=== PATIENT | male | born 1960 | race Caucasian/White ===

== ENCOUNTER 2019-08-25 16:19 | Emergency (ER) | payer MEDICARE, MEDICAID, SELFPAY ==
[2019-08-25 16:05] VITALS: BP 142/95; PULSE 77; RESP 18; TEMP 36.8; O2SAT 93; BMI 35.2
--- NOTE | 2019-08-25 16:05 | ED_ITS ---
Entered by Eusebia Ray, acting as scribe for Zheng Tee DO HPI - Fall General: Chief Complaint: Fall Stated Complaint: fall/loc Time Seen by Provider: 08/25/19 16:05 Source: patient and EMS Mode of arrival: EMS Limitations: no limitations History of Present Illness: HPI Narrative: 59 yo male presents with head laceration post fall. per EMS the pt had 3-4 minutes of LOC. 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 pt complained of neck pain to EMS but not on exam. pt has a head laceration and a knot on back of his head. pt denies any other symptoms at this time. 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) Loss of consciousness: Yes (3-4 minutes ) Length of LOC: minutes(s) Prolonged down time: yes Symptoms prior to fall: none Context: tripped/slipped Location of injury: head and face Severity: moderate Associated symptoms-after fall: Reports no associated symptoms; Denies abdominal pain, chest pain, hematuria or neck pain Review of Systems Const: Denies: fever, chills, body aches, fatigue, malaise or night sweats Eyes: Denies: change in vision or blurry vision ENMT: Denies: throat pain, oral sores/lesions, dental pain, nasal discharge or nasal congestion Card: Denies: chest pain, palpitations, irregular heart rhythm, edema, syncope, shortness of breath on exertion, shortness of breath when lying down or leg pain with exertion Resp: Denies: shortness of breath, productive cough, non-productive cough or wheezing GI: Denies: abdominal pain, nausea, vomiting, vomiting blood, coffee grounds in vomit, difficulty swallowing, heartburn/indigestion, diarrhea, constipation, cramping, blood in stool or black tarry stool : Denies: flank pain, difficulty urinating, painful urination, urinary frequency, urinary urgency, urinary incontinence or blood in urine Musc: Denies: neck pain, back pain, extremity pain, extremity swelling, joint pain or joint swelling Psych: Denies: anxiety, depression, loss of interest, visual hallucinations, auditory hallucinations, suicidal ideation or homicidal ideation Endo: Denies: excessive urination, excessive thirst, tired all the time or cold intolerance Fortunato/Lymph: Denies: easy bruising, easy bleeding, petechiae, enlarged lymph nodes or tender lymph nodes PFSH ED PFSH: Statuses (acute, chronic, etc) shown below reflect problem list status as previously entered and may not be historically accurate Social History Smoking and tobacco status: current every day smoker Physical Exam Const: COMMON NORMALS: average body habitus, oriented x3 and alert GENERAL APPEARANCE: cooperative, comfortable, well kempt and well developed NU TRITIONAL APPEARANCE: obese ORIENTATION/CONSCIOUSNESS: Yes awake, Yes oriented to person and Yes oriented to place Eye: COMMON NORMALS: PERRL, EOMs intact bilaterally, conjunctivae normal and no scleral icterus CONJUNCTIVA: Yes conjunctivae normal PUPIL: Yes PERRL Neck/C-Spine: COMMON NORMALS: full ROM, no lymphadenopathy, supple, no meningeal signs and thyroid normal THYROID: thyroid normal and asymmetrical Lymph: LYMPHATIC: no lymphadenopathy noted Resp: COMMON NORMALS: normal respiratory effort, no retractions, no use of accessory muscles and clear to auscultation bilaterally AUSCULTATION: clear to auscultation bilaterally Cardio: COMMON NORMALS: regular rate and regular rhythm RATE: regular rate RHYTHM: regular rhythm HEART SOUNDS: no murmurs GI: COMMON NORMALS: normal to inspection, nondistended, normoactive bowel sounds, soft to palpation and no hepatosplenomegaly PALPATION: Yes soft and Yes no hepatosplenomegaly : COMMON NORMALS: Yes no CVA tenderness BLADDER/KIDNEY EXAM: Yes no CVA tenderness Back/Pelvis: COMMON NORMALS: no CVA tenderness LUMBAR SPINE/LOWER BACK: Yes normal to inspection Extremity: COMMON NORMALS: no clubbing, cyanosis or edema, no calf tenderness and no pedal edema Neuro: COMMON NORMALS: oriented x3 SENSORIUM/ORIENTATION: Yes alert, Yes oriented to person and Yes oriented to place MENINGEAL SIGNS: Yes no meninge al signs Psych: APPEARANCE: Yes well kempt Course ED course: CT head and neck are fine patient is awake alert and oriented at his baseline. Lacerations repaired by Michael Finnegan nurse practitioner see his note. Discussed with caregivers we will go and discharge him home I would like him to recheck tomorrow with his primary caregiver since he did have some loss of consciousness if he develops any vomiting he should return Vital Signs: Vital signs: Vital Signs Temperature 98.2 F 08/25/19 16:05 Pulse Rate 82 08/25/19 18:24 Respiratory Rate 18 08/25/19 18:24 Blood Pressure 145/91 08/25/19 18:24 Pulse Oximetry 94 08/25/19 18:24 MDM - Fall Lab Data: Labs: Lab Results 08/25/19 08/25/19 Range/Units 16:20 16:20 WBC 10.2 H (4.0-10.0) 10^3/ uL RBC 4.59 (4.1-5.3) 10^6/u L Hgb 13.5 (11.7-16.6) g/dL Hct 41.8 L (42.0-52.0) % MCV 91.1 (80-94) fL MCH 29.4 (28.0-34.0) pg MCHC 32.3 (30.0-36.0) g/dL RDW 13.0 (12.1-15.1) % Plt Count 279 (130-400) 10^3/c mm MPV 10.2 (7.4-10.4) fL Neut % (Auto) 59.9 % Lymph % (Auto) 30.0 % [place] % (Auto) 7.8 % Eos % (Auto) 1.8 % Baso % (Auto) 0.3 % Neut # (Auto) 6.1 (1.8-7.7) 10^3/u L Lymph # (Auto) 3.1 (0.8-4.8) 10^3/u L [place] # (Auto) 0.8 (0.2-0.9) 10^3/u L Eos # (Auto) 0.2 (0.0-0.8) 10^3/u L Baso # (Auto) 0.0 (0.0-0.1) 10^3/u L Nucleated RBC % (a uto) 0 % Nucleated RBCs # 0.0 /100WBC Sodium 139 (136-145) mmol/L Potassium 3.8 (3.5-5.1) mmol/L Chloride 101 (98-107) mmol/L Carbon Dioxide 29 (22-29) mmol/L Anion Gap 12.8 (5-19) BUN 11 (8-23) mg/dL Creatinine 0.7 (0.7-1.2) mg/dL GFR Calculation 114.6 (90-130) mL/min Glucose 107 (65-115) mg/dL Calcium 9.7 (8.5-10.5) mg/dL Total Bilirubin 0.2 (0.15-1.2) mg/dL AST 21 (0-40) U/L ALT 25 (0-41) U/L Alkaline Phosphata se 132 H (40-130) IU/L Total Protein 8.1 (6.6-8.7) g/dL Albumin 4.8 (3.5-5.2) g/dL Globulin 3.3 (1.3-4.6) g/dL Imaging Data^: CT Head: Radiologist's impression: [place] [address] CT Scan Report Signed Patient: Lyle Palmer #: [id number] : 8Acct#:[id number] Age/Sex: 59 / MADM Date: 08/25/19 Loc: ERRoom/Bed: Attending Dr: Ordering Provider/Ordering MD: Zheng Tee DO Date of Service: 08/25/19 Procedure(s): CT head wo con* [id number] Accession Number(s): [id number] Report Number: [id number] WS: [id number] CT HEAD NONCONTRAST HISTORY: closed head trauma, LOC TECHNIQUE: Contiguous axial imaging performed through the brain in 2.5 mm imaging. Bone and soft tissue windows. Sagittal and coronal reformats reviewed. All CT scans at [facility] use at least one of these dose optimization techniques: automated exposure control; mA and/or kV adjustment per patient size (includes targeted exams where dose is matched to clinical indication); or iterative reconstruction. DLP: 913.66 mGy.cm COMPARISON: 07/31/2017 No acute intracranial hemorrhage, midline shift or mass effect. Subtle area of increased density in the cortex of the posterior LEFT frontal lobe I believe is an artifact. Mild atrophy and mild chronic microvascular ischemic disease. Prominent CSF collection posterior fossa consistent with an arachnoid cyst. Ventricles: Normal size with no hydrocephalus. Paranasal sinuses: No air-fluid levels in the sinuses. Small amount mucoperiosteal thickening in the LEFT maxillary sinus. Mastoid air cells: Small amount of increased fluid in the LEFT mastoid air cells is similar to prior studies. Calvarium and scalp: There is no calvarial fracture. There is extensive soft tissue injury centered over the RIGHT frontal bone and orbit and also towards the RIGHT parietal vertex. CT/CT head wo con* [id number] IMPRESSION: 1. No acute intracranial hemorrhage. 2. Mild atrophy and chronic ischemic disease. 3. Scalp hematoma and laceration over the RIGHT frontal bone/orbit and towards the RIGHT parietal vertex. Dictated By:Alessandra Feng DO Signed By:Alessandra Feng DOSigned Date/Time:08/25/[address]: Radiologist's impression: [place] [address] CT Scan Report Signed Patient: Lyle Plamer #: [id number] : 8Acct#:[id number] Age/Sex: 59 / MADM Date: 08/25/19 Loc: ERRoom/Bed: Attending Dr: Ordering Provider/Ordering MD: Zheng Tee DO Date of Service: 08/25/19 Procedure(s): CT cervical spin wo con* [id number] Accession Number(s): [id number] Report Number: [id number] PROCEDURE INFORMATION: Exam: CT Cervical Spine Without Contrast Exam date and time: 08/25/2019 4:10 PM Age: 59 years old Clinical indication: Injury or trauma; Fall; Initial encounter; Concussion /head injury; Additional info: Fall/neck pain TECHNIQUE: Imaging protocol: Computed tomography images of the cervical spine without contrast. Total DLP: 727.96 mGy-cm Radiation optimization: All CT scans at this facility use at least one of these dose optimization techniques: automated exposure control; mA and/or kV adjustment per patient size (includes targeted exams where dose is matched to clinical indication); or iterative reconstruction. COMPARISON: CT Cervical Spine wo* [id number] 07/31/2017 6:27 PM FINDINGS: Vertebrae: No fracture is identified. Discs/Spinal canal/Neural foramina: There are advanced degenerative changes in the cervical spine with narrowing of the C5-C6 C6-C7 and C7-T1 disc spaces an with prominent anterior osteophytes at C6-C7 and C7-T1. There also degenerative changes in the facet joints bilaterally in the upper cervical spine but most severely on the left at C4-C5 and there is moderate foraminal narrowing on the left at C4-C5 and C5-C6 as well as uncovertebral hypertrophy which causes a foraminal narrowing on the right at C5-C6 and C6-C7 and on the left at C6-C7. There is no change compared with 07/31/2017. Soft tissues: Prevertebral soft tissues are unremarkable. Mastoid air cells: There is some partial opacification of mastoid air cells on the left which may represent some mild mastoiditis. Lungs: Lung apices are normal. CT/CT cervical spin wo con* [id number] IMPRESSION: Degenerative changes. No fracture is identified. Radiation Dose CTDIVOL = (mGy): DLP = 727.96 (mGy-cm) Dictated By:Shadi Xavier Signed By:Flako Xavierigned Date/Time:08/25/19 1726 Discharge Plan Discharge Patient Disposition: Home, Self-Care Clinical Impression: Fall, Concussion Condition: Stable Discharge Orders: Discharge Order (Routine); Ordered 08/25/19 Ordered By: Zheng Tee Discharge Diet: Usual diet Discharge Activity: Increase activity as tolerated Activity Restrictions/Additional Instructions: Follow-up with your doctor tomorrow. Discharge Date/Time: 08/25/19 18:25 Coding Level of Care Code ED Railroad Police Officer for Chg Fwd Exam Problem Focused The documentation recorded by the Cory nichols Bridget Annette, accurately reflects the service I personally performed and the decisions made by Nay rojas Curtis L, DO Aug 25, 2019 16:19
--- NOTE | 2019-08-25 16:07 | CT_ITS ---
WS: [id number] CT HEAD NONCONTRAST HISTORY: closed head trauma, LOC TECHNIQUE: Contiguous axial imaging performed through the brain in 2.5 mm imaging. Bone and soft tiss ue windows. Sagittal and coronal reformats reviewed. All CT scans at [facility] use at le ast one of these dose optimization techniques: automated exposure control; mA and/or kV adjustment pe r patient size (includes targeted exams where dose is matched to clinical indication); or iterative r econstruction. DLP: 913.66 mGy.cm COMPARISON: 07/31/2017 No acute intracranial hemorrhage, midline shift or mass effect. Subtle area of increased density in t he cortex of the posterior LEFT frontal lobe I believe is an artifact. Mild atrophy and mild chronic microvascular ischemic disease. Prominent CSF collection posterior luis daniel a consistent with an arachnoid cyst. Ventricles: Normal size with no hydrocephalus. Paranasal sinuses: No air-fluid levels in the sinuses. Small amount mucoperiosteal thickening in the LEFT maxillary sinus. Mastoid air cells: Small amount of increased fluid in the LEFT mastoid air cells is similar to prior studies. Calvarium and scalp: There is no calvarial fracture. There is extensive soft tissue injury centered o cal the RIGHT frontal bone and orbit and also towards the RIGHT parietal vertex. CT/CT head wo con* [id number] IMPRESSION: 1. No acute intracranial hemorrhage. 2. Mild atrophy and chronic ischemic disease. 3. Scalp hematoma and laceration over the RIGHT frontal bone/orbit and towards the RIGHT parietal vertex.
[2019-08-25] MEDS: tetanus-dipt-pertussis 0.5 mL SDV IM (16:22)
[2019-08-25 16:25] VITALS: BP 142/95; PULSE 105; RESP 17; O2SAT 98
[2019-08-25] MEDS: sodium chloride 0.9% 500 ML 999 ML IV (16:25)
[2019-08-25 16:32] LABS: Basophils % 0.3 %; Eosinophils # 0.2 10^3/uL (0.0-0.8); Eosinophils % 1.8 %; Hematocrit 41.8 % (42.0-52.0); Hemoglobin 13.5 g/dL (11.7-16.6); Lymphocytes # 3.1 10^3/uL (0.8-4.8); Mean Corpuscular HGB Conc 32.3 g/dL (30.0-36.0); Mean Corpuscular Hemoglobin 29.4 pg (28.0-34.0); Mean Corpuscular Volume 91.1 fL (80-94); Mean Platelet Volume 10.2 fL (7.4-10.4); Monocytes # 0.8 10^3/uL (0.2-0.9); Monocytes % 7.8 %; Neutrophils # 6.1 10^3/uL (1.8-7.7); Neutrophils % 59.9 %; Nucleated Red Blood Cells % 0 %; Platelet Count 279 10^3/cmm (130-400); Red Blood Count 4.59 10^6/uL (4.1-5.3); White Blood Count 10.2 10^3/uL (4.0-10.0)
[2019-08-25 16:48] LABS: Alanine Aminotransferase 25 U/L (0-41); Albumin Level 4.8 g/dL (3.5-5.2); Alkaline Phosphatase 132 IU/L (40-130); Anion Gap 12.8 (5-19); Aspartate Amino Transferase 21 U/L (0-40); Blood Urea Nitrogen 11 mg/dL (8-23); Calcium 9.7 mg/dL (8.5-10.5); Carbon Dioxide 29 mmol/L (22-29); Chloride 101 mmol/L (98-107); Globulin 3.3 g/dL (1.3-4.6); Glomerular Filtration Rate 114.6 mL/min (90-130); Glucose 107 mg/dL (65-115); Potassium 3.8 mmol/L (3.5-5.1); Sodium 139 mmol/L (136-145); Total Bilirubin 0.2 mg/dL (0.15-1.2); Total Protein 8.1 g/dL (6.6-8.7)
--- NOTE | 2019-08-25 17:17 | W.ED.FALL ---
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) Context: tripped/slipped FOR[facility]LY [facility], 1928[facility]1983 ED PFSH: Statuses (acute, chronic, etc) shown below reflect problem list status as previously entered and may not be historically accurate Social History Smoking and tobacco status: current every day smoker Procedures Laceration Laceration 1: Site: face Side (If applicable): right Size (cm): 2 Description: linear Depth: simple, single layer Local Anesthetic: lidocaine 1% Amount of anesthesia used (mL): 1 Pre-repair: wound explored Skin layer closed with: vicryl Size (cm): 4-0 Number of sutures: 5 Technique: simple, interrupted Laceration 2: Site: face Side (If applicable): right Size (cm): 1.5 Description: linear Depth: simple, single layer Local Anesthetic: lidocaine 1% Amount of anesthesia used (mL): 1 Pre-repair: wound explored Skin layer closed with: vicryl Size (cm): 4-0 Number of sutures: 3 Course Vital Signs: Vital signs: Vital Signs Temperature 98.2 F 08/25/19 16:05 Pulse Rate 105 H 08/25/19 16:25 Respiratory Rate 17 08/25/19 16:25 Blood Pressure 142/95 08/25/19 16:25 Pulse Oximetry 98 08/25/19 16:25 MDM - Fall Lab Data: Labs: Lab Results 08/25/19 08/25/19 Range/Units 16:20 16:20 WBC 10.2 H (4.0-10.0) 10^3/ uL RBC 4.59 (4.1-5.3) 10^6/u L Hgb 13.5 (11.7-16.6) g/dL Hct 41.8 L (42.0-52.0) % MCV 91.1 (80-94) fL MCH 29.4 (28.0-34.0) pg MCHC 32.3 (30.0-36.0) g/dL RDW 13.0 (12.1-15.1) % Plt Count 279 (130-400) 10^3/c mm MPV 10.2 (7.4-10.4) fL Neut % (Auto) 59.9 % Lymph % (Auto) 30.0 % [place] % (Auto) 7.8 % Eos % (Auto) 1.8 % Baso % (Auto) 0.3 % Neut # (Auto) 6.1 (1.8-7.7) 10^3/u L Lymph # (Auto) 3.1 (0.8-4.8) 10^3/u L [place] # (Auto) 0.8 (0.2-0.9) 10^3/u L Eos # (Auto) 0.2 (0.0-0.8) 10^3/u L Baso # (Auto) 0.0 (0.0-0.1) 10^3/u L Nucleated RBC % (a uto) 0 % Nucleated RBCs # 0.0 /100WBC Sodium 139 (136-145) mmol/L Potassium 3.8 (3.5-5.1) mmol/L Chloride 101 (98-107) mmol/L Carbon Dioxide 29 (22-29) mmol/L Anion Gap 12.8 (5-19) BUN 11 (8-23) mg/dL Creatinine 0.7 (0.7-1.2) mg/dL GFR Calculation 114.6 (90-130) mL/min Glucose 107 (65-115) mg/dL Calcium 9.7 (8.5-10.5) mg/dL Total Bilirubin 0.2 (0.15-1.2) mg/dL AST 21 (0-40) U/L ALT 25 (0-41) U/L Alkaline Phosphata se 132 H (40-130) IU/L Total Protein 8.1 (6.6-8.7) g/dL Albumin 4.8 (3.5-5.2) g/dL Globulin 3.3 (1.3-4.6) g/dL Coding Level of Care Code ED General Utility Worker for Sajan King
[2019-08-25 18:24] VITALS: BP 145/91; PULSE 82; RESP 18; O2SAT 94
== END 2019-08-25 18:25 | disposition home or self-care (01) ==
PROVIDERS: Emergency Provider Family Medicine
DX: S06.0X1A Concussion with loss of consciousness of 30 minutes or less, initial encounter (principal); W19.XXXA Unspecified fall, initial encounter; F17.210 Nicotine dependence, cigarettes, uncomplicated; Z23 Encounter for immunization
CPT/HCPCS: 12013; 70450; 72125; 80053; 85025; 90471; 90715; 96374; 96375; 99282; 99283; 99284; J7040

== ENCOUNTER 2019-09-27 18:00 | Emergency (ER) | payer MEDICARE, MEDICAID, SELFPAY ==
[2019-09-27 18:01] VITALS: BMI 30.9
--- NOTE | 2019-09-27 18:04 | ED_ITS ---
Entered by Eusebia Ray, acting as scribe for Brayan Woods MD HPI - Head Injury General: Chief complaint: Fall Stated complaint: FALL HEAD PAIN LOC Time Seen by Provider: 09/27/19 18:04 Source: patient and EMS Mode of arrival: EMS Limitations: no limitations History of Present Illness: HPI Narrative: 59 yo male presents with a fall. per EMS the pt was walking and tripped at home and fell, pt was arousal by painful stimuli. pt has head pain from hitting head. pt denies any other symptoms at this time. 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) Arrival Conditions: C-spine immobilization present Mechanism of Injury: fall Place: home ([facility]) and other Loss of Consciousness: no Location of injury: occipital Severity: mild Radiation: none Other Injuries: none Associated symptoms: Reports no associated symptoms; Deny nausea, neck pain or vomiting Review of Systems General: Reports: 10 or more systems reviewed and unremarkable except in HPI and below Const: Denies: fever, chills, body aches or change in appetite Eyes: Denies: blurry vision or eye discomfort ENMT: Denies: throat pain or dental pain Card: Denies: chest pain Resp: Denies: shortness of breath GI: Denies: abdominal pain, nausea, vomiting or diarrhea : Denies: painful urination Musc: Denies: neck pain or back pain Skin/Breast: Denies: rash Neuro: Reports: headache Psych: Denies: depression Fortunato/Lymph: Denies: easy bruising All/Imm: Denies: hives PFSH ED PFSH: Social History Smoking and tobacco status: current every day smoker Physical Exam Const: COMMON NORMALS: no apparent distress, oriented x3 and healthy appearing HENMT: COMMON NORMALS: normocephalic and head/scalp atraumatic HEAD & SCALP: normocephalic and atraumatic Eye: COMMON NORMALS: PERRL and EOMs intact bilaterally PUPIL: Yes PERRL Neck/C-Spine: COMMON NORMALS: full ROM and supple Chest: COMMONS NORMALS: inspection of chest normal and palpation of chest normal Resp: COMMON NORMALS: normal respiratory effort, no retractions, no use of accessory muscles and clear to auscultation bilaterally AUSCULTATION: clear to auscultation bilaterally Cardio: COMMON NORMALS: regular rate, regular rhythm and no murmurs RATE: regular rate RHYTHM: regular rhythm GI: COMMON NORMALS: normal to inspection, nondistended, normoactive bowel sounds, soft to palpation, non-tender and no masses PALPATION: Yes soft Extremity: COMMON NORMALS: normal to inspection and full ROM Neuro: COMMON NORMALS: oriented x3, moves all extremities and no focal motor deficits Psych: COMMON NORMALS: mental status grossly normal, thought process normal and cooperative THOUGHT PROCESS: normal thought process Skin: COMMON NORMALS: no rashes or lesions noted and no wounds GENERAL SKIN EXAM: no rashes or lesions noted Course Vital Signs: Vital signs: Vital Signs Temperature 98.6 F 09/27/19 18:09 Pulse Rate 86 09/27/19 18:09 Respiratory Rate 16 09/27/19 18:09 Blood Pressure 154/97 09/27/19 18:09 Pulse Oximetry 98 09/27/19 18:11 MDM - Head Injury MDM Narrative: Medical decision making narrative: Patient presents here after a fall. Patient tripped and fell and had no syncopal episode. Patient's head CT and C-spine CT are negative. Patient is stable for discharge and is return if worsening. Imaging Data^: CT Head: Radiologist's impression: CT Scan Report Signed Patient: Lyle Palmer Unit #: [id number] : 1960 Age/Sex: 59 / M ADM Date: Loc: ER Room/Bed: Attending Dr: Ordering Provider/Ordering MD: Brayan Woods MD Date of Service: 09/27/19 Procedure(s): CT head wo con* [id number] Accession Number(s): [id number] Report Number: [id number] PROCEDURE INFORMATION: Exam: CT Head Without Contrast Exam date and time: 09/27/2019 6:06 PM Age: 59 years old Clinical indication: Injury or trauma; Fall; Initial encounter; Blunt trauma (contusions or hematomas); With loss of consciousness; Loss of consciousness for 30 minutes or less; Injury date: 09/27/2019; Injury details: PT is in an assisted living facility, facility says he fell over his walker hit his head, positive loc at least 15 min. Abrasions frontal bone and over RT orbit TECHNIQUE: Imaging protocol: Computed tomography of the head without contrast. Total DLP: 930.23 mGy-cm Radiation optimization: All CT scans at this facility use at least one of these dose optimization techniques: automated exposure control; mA and/or kV adjustment per patient size (includes targeted exams where dose is matched to clinical indication); or iterative reconstruction. COMPARISON: CT head wo con* [id number] 08/25/2019 4:50 PM FINDINGS: Brain: Stable cerebellar atrophy. No abnormal brain attenuation. No intracranial hemorrhage. The sulci are within normal limits. Ventricles: Normal. No ventriculomegaly. Bones/joints: Rightward deviation of the nasal septum. Sinuses: Visualized sinuses are unremarkable. No fluid levels. Mastoid air cells: Small left mastoid effusion. Soft tissues: Stable chronic soft tissue injury or defect in the superior right parietal scalp with soft tissue ossification along the calvarium. Vasculature: No hyperdense artery. CT/CT head wo con* [id number] IMPRESSION: 1. Stable CT head. No acute findings. ct c spine: Radiologist's impression: CT Scan Report Signed Patient: Lyle Palmer Unit #: [id number] : 1960 Age/Sex: 59 / M ADM Date: 09/27/19 Loc: ER Room/Bed: Attending Dr: Ordering Provider/Ordering MD: Brayan Woods MD Date of Service: 09/27/19 Procedure(s): CT cervical spin wo con* [id number] Accession Number(s): [id number] Report Number: [id number] PROCEDURE INFORMATION: Exam: CT Cervical Spine Without Contrast Exam date and time: 09/27/2019 6:06 PM Age: 59 years old Clinical indication: Injury or trauma; Fall; Initial encounter; Blunt trauma; Injury date: 09/27/2019; Injury details: PT is in an assisted living facility, facility says he fell over his walker hit his head, positive loc at least 15 min. Abrasions frontal bone and over RT orbit TECHNIQUE: Imaging protocol: Computed tomography images of the cervical spine without contrast. Total DLP: 861.42 mGy-cm Radiation optimization: All CT scans at this facility use at least one of these dose optimization techniques: automated exposure control; mA and/or kV adjustment per patient size (includes targeted exams where dose is matched to clinical indication); or iterative reconstruction. COMPARISON: CT cervical spin wo con* [id number] 08/25/2019 4:56 PM FINDINGS: Vertebrae: Rightward cervical curvature. The vertebral body stature is maintained. The facets are intact with multilevel hypertrophic degenerative changes. Discs/Spinal canal/Neural foramina: Multilevel bilateral moderate to severe bony foraminal stenosis. No significant central canal stenosis identified. Severe disc space narrowing at C5-C6, C6-C7, and C7-T1 with degenerative endplate changes. Soft tissues: Unremarkable. Lungs: Emphysema. CT/CT cervical spin wo con* [id number] IMPRESSION: 1. No fracture identified. 2. Multilevel degenerative changes. Discharge Plan Discharge Patient Disposition: Home, Self-Care Clinical Impression: Fall CHI (closed head injury) Qualifiers: Encounter type: initial encounter Qualified Code(s): S09.90XA - Unspecified injury of head, initial encounter Condition: Stable Discharge Orders: Discharge Order (Routine); Ordered 09/27/19 Ordered By: Brayan Woods Discharge Diet: Advance as tolerated Discharge Activity: Resume usual activity Patient Instructions: Fall Prevention (ED) Coding Level of Care Code ED Dining Car Hop for Sajan King The documentation recorded by the Cory nichols Bridget Annette, accurately reflects the service I personally performed and the decisions made by Peggy rojas Korby, MD Sep 27, 2019 18:00
[2019-09-27 18:09] VITALS: BP 154/97; PULSE 86; RESP 16; TEMP 37; O2SAT 98
[2019-09-27 18:11] VITALS: O2SAT 98
[2019-09-27 19:49] VITALS: BP 143/93; PULSE 80; RESP 20; O2SAT 95
== END 2019-09-27 19:59 | disposition home or self-care (01) ==
PROVIDERS: Emergency Provider Emergency Medicine
DX: S09.90XA Unspecified injury of head, initial encounter (principal); W01.0XXA Fall on same level from slipping, tripping and stumbling without subsequent striking against object, initial encounter; Y92.009 Unspecified place in unspecified non-institutional (private) residence as the place of occurrence of the external cause; F17.200 Nicotine dependence, unspecified, uncomplicated
CPT/HCPCS: 12345; 70450; 72125; 99281; 99283

== ENCOUNTER 2020-01-13 11:07 | Emergency (ER) | payer MEDICARE, MEDICAID, SELFPAY ==
[2020-01-13] VITALS (7 sets, daily range): BP systolic 103–122; BP diastolic 71–79; PULSE 88–116; RESP 14–33; TEMP 37.3–37.4; O2SAT 88–98; BMI 32.5
--- NOTE | 2020-01-13 11:32 | XRR_ITS ---
PROCEDURE INFORMATION: Exam: XR Chest, 1 View Exam date and time: 01/13/2020 12:07 PM Age: 59 years old Clinical indication: Fever and shortness of breath; Additional info: Fever, SOB, n/v. Patient fell 2 days ago TECHNIQUE: Imaging protocol: XR of the chest Views: 1 view. COMPARISON: CR Chest 1 [place] [id number] 01/27/2017 4:02 PM FINDINGS: Lungs: Hypoinflation, interstitial prominence, and trace basilar airspace disease. Pleural space: Questionable small left pleural effusion. Extrapleural thickening. Heart/Mediastinum: Borderline cardiomegaly. Bones/joints: Degenerative change. XR/XR chest 1V portable [id number] IMPRESSION: Hypoinflation, interstitial prominence, and trace basilar airspace disease.
--- NOTE | 2020-01-13 11:35 | CTR_ITS ---
PROCEDURE INFORMATION: Exam: CT Abdomen And Pelvis With Contrast Exam date and time: 01/13/2020 11:37 AM Age: 59 years old Clinical indication: Abdominal pain; Acute; Additional info: Abdominal pain, nausea and vomiting, fever TECHNIQUE: Imaging protocol: Computed tomography of the abdomen and pelvis with intravenous contrast. Radiation optimization: All CT scans at this facility use at least one of these dose optimization techniques: automated exposure control; mA and/or kV adjustment per patient size (includes targeted exams where dose is matched to clinical indication); or iterative reconstruction. Contrast material: OMNIPAQUE 300; Contrast volume: 95 ml; Contrast route: INTRAVENOUS (IV); COMPARISON: CT abdomen pelvis w con* [id number] 11/25/2015 6:38 PM RADIATION DOSE METRICS: Total DLP (mGy-cm): 1391.92 FINDINGS: Pleural space: Interstitial prominence, trace dependent airspace disease, and mild pleural thickening. Liver: Fatty infiltration of the liver. Gallbladder and bile ducts: Contracted gallbladder limiting evaluation. No biliary ductal dilatation. Pancreas: No pancreatic mass or ductal dilatation. Spleen: Enlarged spleen measuring 13.1 cm in length. Adrenals: Unremarkable. Kidneys and ureters: Renal cysts, including a 4.6 cm exophytic right renal cyst. 1.3 cm nodular hypodense lesion in the superior medial left kidney which does not fulfill CT criteria for a simple cyst. Stomach and bowel: Questionable wall thickening in the nondistended stomach. Copious stool in the dilated colon, in a pattern of constipation. Diverticula, without pericolonic inflammation. Appendix: No acute appendicitis. Intraperitoneal space: No free fluid. Vasculature: Normal caliber of the abdominal aorta. Lymph nodes: Lymph nodes, including 1.7 x 1.2 x 1.5 cm celiac and 3.6 by 2.1 by 2.1 cm portacaval lymph node. Bladder: Bladder dilatation. 4.8 x 2.6 cm right bladder diverticulum. Reproductive: Punctate prostate calcifications. Bones/joints: Degenerative change. Soft tissues: Gynecomastia. Small fat containing umbilical and inguinal hernias. CT/CT abdomen pelvis w con* [id number] IMPRESSION: 1. Questionable wall thickening in the nondistended stomach. 2. 4.8 x 2.6 cm right bladder diverticulum. 3. Enlarged 1.7 x 1.2 x 1.5 cm celiac and 3.6 by 2.1 by 2.1 cm portacaval lymph node. 4. Additional findings as described above. Radiation Dose CTDIVOL = (mGy): DLP = 1391.92 (mGy-cm)
--- NOTE | 2020-01-13 11:40 | ED_ITS ---
HPI - Nausea/Vomiting/Diarrhea General: Chief complaint: Nausea/Vomiting/Diarrhea Stated complaint: SOB Time Seen by Provider: 01/13/20 11:24 Source: patient Mode of arrival: ambulatory History of Present Illness: HPI Narrative: Patient was brought in by his caregiver. Most of the history is obtained from the caregiver. The patient appears to be a little confused. About 2 days ago the patient fell when he was outside smoking, and he denies hitting his head or loss of consciousness but apparently he has been very confused and acting differently since the fall. He has had abdominal pain, nausea and vomiting that started yesterday. Progressively getting a little worse. Was recently started on Bactrim for what was presumed to be cellulitis of his left thigh. He had a temperature of about 99 degrees today so he was sent in by his primary care provider to be evaluated. Associated nausea: Yes Associated symtoms: Reports malaise and nausea; Denies change in vision, dysuria or palpitations Review of Systems General: Reports: 10 or more systems reviewed and unremarkable except in HPI and below Const: Reports: fever(s) and malaise Eyes: Denies: change in vision or blurry vision ENMT: Denies: throat pain, enlarged tonsils, odynophagia, hoarseness, mouth pain or swelling of lips/tongue Card: Denies: palpitations, irregular heart rhythm, edema or swelling of feet/ankles Resp: Denies: dyspnea, productive cough or non-productive cough GI: Reports: abdominal pain, nausea and vomiting : Denies: flank pain, dysuria, urinary frequency, urinary urgency or urinary hesitancy Musc: Denies: neck pain, back pain or extremity swelling Skin/Breast: Reports: new lesions Neuro: Reports: confusion Endo: Denies: polyuria, polydipsia or tired all the time PFS ED PFSH: Social History Smoking and tobacco status: current every day smoker Physical Exam Const: COMMON NORMALS: no acute distress, average body habitus, no limitations, healthy appearing, alert and well nourished HENMT: COMMON NORMALS: normocephalic, atraumatic and moist oral mucous membranes HEAD & SCALP: normocephalic and atraumatic Neck/C-Spine: COMMON NORMALS: no meningeal signs and no JVD Chest: COMMONS NORMALS: normal inspection of the chest and normal palpation of entire chest wall Resp: COMMON NORMALS: normal respiratory effort, No retractions, No use of accessory muscles, clear to auscultation bilaterally and percussion normal AUSCULTATION: clear to auscultation bilaterally PERCUSSION: percussion normal Cardio: COMMON NORMALS: no JVD, regular rate, regular rhythm, S1 normal heart sound present, S2 normal heart sound present, No gallops present (Cardio), No clicks present (Cardio), No murmurs present (Cardio), No rub (Cardio) and Peripheral pulses 2+ throughout RATE: regular rate RHYTHM: regular rhythm HEART SOUNDS: S1 normal heart sound present and S2 normal heart sound present PERIPHERAL PULSES: Peripheral pulses 2+ throughout GI: COMMON NORMALS: Normal to inspection, nondistended, normoactive bowel sounds present, Soft to palpation, non-tender, No hepatosplenomegaly present, no masses and no bruits PALPATION: Yes Soft to palpation and Yes No hepatosplenomegaly present : COMMON NORMALS: Yes no CVA tenderness BLADDER/KIDNEY EXAM: Yes no CVA tenderness Back/Pelvis: COMMON NORMALS: no CVA tenderness Extremity: COMMON NORMALS: normal to inspection, full ROM, capillary refill normal, no calf tenderness and no pedal edema Neuro: SENSORIUM/ORIENTATION: Yes alert and Yes fluctuating sensorium MENINGEAL SIGNS: Yes no meningeal signs Skin: COMMON NORMALS: no rashes or lesions noted, no wounds, turgor normal, no jaundice, no petechiae and no mottling NARRATIVE SKIN EXAM: There is an area of erythema on his distal left thigh, about 3 to 4 cm in diameter. It is warm, tender. No drainage noted. No fluctuance. GENERAL SKIN EXAM: no rashes or lesions noted and turgor normal Course Reevaluation(s): Reevaluation #1: Discussed his lab and imaging findings with his caregiver. Explained that with his nausea vomiting and elevated liver enzymes I have concerns for cholelithiasis. The MRCP done was unremarkable as there was a lot of motion artifact so it was essentially useless. I would like for him to have an ERCP. She voiced understanding and is in agreement with the plan. Consultations: Consultation #1: Dr. Marley, hospitalist at [facility] in [place]. He kindly accepted the patient to his service. Time: 18:40 Vital Signs: Vital signs: Vital Signs Temperature 99.2 F 01/13/20 18:47 Pulse Rate 108 H 01/13/20 21:13 Respiratory Rate 18 01/13/20 21:13 Blood Pressure 103/71 01/13/20 21:13 Pulse Oximetry 96 01/13/20 21:13 MDM - Nausea/Vomiting/Diarrhea MDM Narrative: Medical decision making narrative: 59-year-old male who present s to the emergency department with nausea vomiting as well as abdominal pain. Evaluation in the emergency department shows new elevation of his liver enzymes, hyperbilirubinemia, and some confusion. Because of concerns for cholelithiasis he is transferred for an ERCP and further work-up. Chest x-ray also shows a pneumonia. Medical Records: Attestation: I reviewed the patient's medical records. Lab Data: Attestation: I reviewed the patient's lab results. Labs: Lab Results 01/13/20 01/13/20 01/13/20 Range/Units 12:10 12:10 12:10 WBC 9.5 (4.0-10.0) 10^3/ uL RBC 4.23 (4.1-5.3) 10^6/u L Hgb 12.8 (11.7-16.6) g/dL Hct 39.0 L (42.0-52.0) % MCV 92.2 (80-94) fL MCH 30.3 (28.0-34.0) pg MCHC 32.8 (30.0-36.0) g/dL RDW 14.0 (12.1-15.1) % Plt Count 181 (130-400) 10^3/c mm MPV 9.7 (7.4-10.4) fL Neut % (Auto) 84.9 % Lymph % (Auto) 7.1 % Young % (Auto) 6.3 % Eos % (Auto) 1.3 % Baso % (Auto) 0.2 % Neut # (Auto) 8.1 H (1.8-7.7) 10^3/u L Lymph # (Auto) 0.7 L (0.8-4.8) 10^3/u L Young # (Auto) 0.6 (0.2-0.9) 10^3/u L Eos # (Auto) 0.1 (0.0-0.8) 10^3/u L Baso # (Auto) 0.0 (0.0-0.1) 10^3/u L Nucleated RBC % (a uto) 0 % Nucleated RBCs # 0.0 /100WBC Sodium 134 L (136-145) mmol/L Potassium 4.0 (3.5-5.1) mmol/L Chloride 98 (98-107) mmol/L Carbon Dioxide 22 (22-29) mmol/L Anion Gap 18.0 (5-19) BUN 8 (8-23) mg/dL Creatinine 0.7 (0.7-1.2) mg/dL GFR Calculation 114.6 (90-130) mL/min Glucose 105 (65-115) mg/dL Calculated Osmolal ity 274 L (285-295) mOsm/k g Lactate 1.0 (0.5-2.2) mmol/L Calcium 8.6 (8.5-10.5) mg/dL Total Bilirubin 2.4 H (0.15-1.2) mg/dL AST 233 H (0-40) U/L ALT 322 H (0-41) U/L Alkaline Phosphata se 220 H (40-130) IU/L C-Reactive Protein 84.9 H (0.0-4.9) mg/L Total Protein 7.1 (6.6-8.7) g/dL Albumin 4.2 (3.5-5.2) g/dL Globulin 2.9 (1.3-4.6) g/dL Lipase 19 (13-60) U/L Urine Color (Yellow) Urine Appearance (CLEAR) Urine pH (5-7) Ur Specific Gravit y (1.005-1.030) Urine Protein (Negative) Urine Glucose (UA) (Normal) Urine Ketones (Negative) Urine Blood (Negative) Urine Nitrate (Negative) Urine Bilirubin (NEGATIVE) Urine Urobilinogen (Negative) mg/dL Ur Leukocyte Erin ase (Negative) Urine RBC (0-2) /hpf Urine WBC (0-5) /hpf Ur Squamous Epith Cells (0-5) Amorphous Sediment Urine Bacteria (NONE) Hepatitis A IgM Ab (Nonreactive) Hep Bs Antigen (Nonreactive) Hep B Core IgM Ab (Nonreactive) Hepatitis C Antibo dy (Nonreactive) 01/13/20 01/13/20 Range/Units 12:10 12:44 WBC (4.0-10.0) 10^3/ uL RBC (4.1-5.3) 10^6/u L Hgb (11.7-16.6) g/dL Hct (42.0-52.0) % MCV (80-94) fL MCH (28.0-34.0) pg MCHC (30.0-36.0) g/dL RDW (12.1-15.1) % Plt Count (130-400) 10^3/c mm MPV (7.4-10.4) fL Neut % (Auto) % Lymph % (Auto) % Young % (Auto) % Eos % (Auto) % Baso % (Auto) % Neut # (Auto) (1.8-7.7) 10^3/u L Lymph # (Auto) (0.8-4.8) 10^3/u L Young # (Auto) (0.2-0.9) 10^3/u L Eos # (Auto) (0.0-0.8) 10^3/u L Baso # (Auto) (0.0-0.1) 10^3/u L Nucleated RBC % (a uto) % Nucleated RBCs # /100WBC Sodium (136-145) mmol/L Potassium (3.5-5.1) mmol/L Chloride (98-107) mmol/L Carbon Dioxide (22-29) mmol/L Anion Gap (5-19) BUN (8-23) mg/dL Creatinine (0.7-1.2) mg/dL GFR Calculation (90-130) mL/min Glucose (65-115) mg/dL Calculated Osmolal ity (285-295) mOsm/k g Lactate (0.5-2.2) mmol/L Calcium (8.5-10.5) mg/dL Total Bilirubin (0.15-1.2) mg/dL AST (0-40) U/L ALT (0-41) U/L Alkaline Phosphata se (40-130) IU/L C-Reactive Protein (0.0-4.9) mg/L Total Protein (6.6-8.7) g/dL Albumin (3.5-5.2) g/dL Globulin (1.3-4.6) g/dL Lipase (13-60) U/L Urine Color Sammie (Yellow) Urine Appearance Clear (CLEAR) Urine pH 8 H (5-7) Ur Specific Gravit y 1.010 (1.005-1.030) Urine Protein Neg (Negative) Urine Glucose (UA) Norm (Normal) Urine Ketones Negative (Negative) Urine Blood Neg (Negative) Urine Nitrate Negative (Negative) Urine Bilirubin 1+ H (NEGATIVE) Urine Urobilinogen 4+ H (Negative) mg/dL Ur Leukocyte Erin ase Trace H (Negative) Urine RBC None (0-2) /hpf Urine WBC 0-4 H (0-5) /hpf Ur Squamous Epith Cells 0-4 H (0-5) Amorphous Sediment Not Reportable Urine Bacteria Trace (NONE) Hepatitis A IgM Ab Non-reactive (Nonreactive) Hep Bs Antigen Non-reactive (Nonreactive) Hep B Core IgM Ab Non-reactive (Nonreactive) Hepatitis C Antibo dy Non-reactive (Nonreactive) Imaging Data^: CT Abd/Pel: Radiologist's impression: [place] [address] CT Scan Report Signed Patient: Lyle Palmer #: [id number] : 8Acct#:[id number] Age/Sex: 59 / MADM Date: 01/13/20 Loc: [facility]/Bed: Attending Dr: Ordering Provider/Ordering MD: Ciara Mcmahon MD, [facility] [place] Date of Service: 01/13/20 Procedure(s): CT abdomen pelvis w con* [id number] Accession Number(s): [id number] Report Number: [id number] PROCEDURE INFORMATION: Exam: CT Abdomen And Pelvis With Contrast Exam date and time: 01/13/2020 11:37 AM Age: 59 years old Clinical indication: Abdominal pain; Acute; Additional info: Abdominal pain, nausea and vomiting, fever TECHNIQUE: Imaging protocol: Computed tomography of the abdomen and pelvis with intravenous contrast. Radiation optimization: All CT scans at this facility use at least one of these dose optimization techniques: automated exposure control; mA and/or kV adjustment per patient size (includes targeted exams where dose is matched to clinical indication); or iterative reconstruction. Contrast material: OMNIPAQUE 300; Contrast volume: 95 ml; Contrast route: INTRAVENOUS (IV); COMPARISON: CT abdomen pelvis w con* [id number] 11/25/2015 6:38 PM RADIATION DOSE METRICS: Total DLP (mGy-cm): 1391.92 FINDINGS: Pleural space: Interstitial prominence, trace dependent airspace disease, and mild pleural thickening. Liver: Fatty infiltration of the liver. Gallbladder and bile ducts: Contracted gallbladder limiting evaluation. No biliary ductal dilatation. Pancreas: No pancreatic mass or ductal dilatation. Spleen: Enlarged spleen measuring 13.1 cm in length. Adrenals: Unremarkable. Kidneys and ureters: Renal cysts, including a 4.6 cm exophytic right renal cyst. 1.3 cm nodular hypodense lesion in the superior medial left kidney which does not fulfill CT criteria for a simple cyst. Stomach and bowel: Questionable wall thickening in the nondistended stomach. Copious stool in the dilated colon, in a pattern of constipation. Diverticula, without pericolonic inflammation. Appendix: No acute appendicitis. Intraperitoneal space: No free fluid. Vasculature: Normal caliber of the abdominal aorta. Lymph nodes: Lymph nodes, including 1.7 x 1.2 x 1.5 cm celiac and 3.6 by 2.1 by 2.1 cm portacaval lymph node. Bladder: Bladder dilatation. 4.8 x 2.6 cm right bladder diverticulum. Reproductive: Punctate prostate calcifications. Bones/joints: Degenerative change. Soft tissues: Gynecomastia. Small fat containing umbilical and inguinal hernias. CT/CT abdomen pelvis w con* [id number] IMPRESSION: 1. Questionable wall thickening in the nondistended stomach. 2. 4.8 x 2.6 cm right bladder diverticulum. 3. Enlarged 1.7 x 1.2 x 1.5 cm celiac and 3.6 by 2.1 by 2.1 cm portacaval lymph node. 4. Additional findings as described above. Radiation Dose CTDIVOL = (mGy): DLP = 1391.92 (mGy-cm) Dictated By:Armin Roberts MD Signed By:Armin Roberts MDSigned Date/Time:01/13/201335 DD/ 35 MRI: Radiologist's impression: [place] [id number] Magnetic Resonance Report Signed Patient: Lyle Palmer #: [id number] : 8Acct#:[id number] Age/Sex: 59 / MADM Date: 01/13/20 Loc: [facility]/Bed: Attending Dr: Ordering Provider/Ordering MD: Ciara Mcmahon MD, [facility] Date of Service: 01/13/20 Procedure(s): MR MRCP 76701 Accession Number(s): [id number] Report Number: [id number] PROCEDURE INFORMATION: Exam: MR Abdomen Without Contrast Exam date and time: 01/13/2020 4:47 PM Age: 59 years old Clinical indication: Abdominal pain; Acute; Patient HX: PT. Is mentally handicapped. PT. Panicked when the machine made noise. PT did not understand the breath hold commands. Limited study. ; Additional info: Abdominal pain, fever, vomiting, elevated liver enzymes, TECHNIQUE: Imaging protocol: MR of the abdomen without contrast. COMPARISON: CT abdomen pelvis w con* [id number] 01/13/2020 12:51 PM FINDINGS: Limitations: Study is severely limited by patient motion. Liver: No gross abnormality is seen within the liver. Gallbladder and bile ducts: Visualization of the gallbladder and biliary tree is extremely limited on this examination due to motion. No biliary tract dilatation is identified . there are no definite stones. Pancreas: Unremarkable. No ductal dilation. Spleen: No significant finding is seen in the spleen. Adrenals: Unremarkable. No mass. Kidneys and ureters: There is a large benign-appearing simple cyst arising from the medial aspect of the right kidney as seen on CT. Stomach and bowel: Visualized stomach and intestines are unremarkable. Intraperitoneal space: No free fluid. Arteries: No abdominal aortic aneurysm. Bones/joints: Unremarkable. Soft tissues: Unremarkable. MR/MR MRCP [id number] IMPRESSION: Extremely limited examination due to patient motion. COMMENTS: Consistent with the [place] [employer]'s Incidental Findings Committee white paper (J Am Ronal Radiol 2018): Any incidental renal lesion less than 1.0 cm or classified as too small to characterize, or any incidental cystic renal lesion characterized as simple-appearing, is likely benign. No follow-up imaging is recommended for these lesions per consensus recommendations based on imaging criteria. Dictated By:Shadi Xavier Signed By:Flako Xavierigned Date/Time:01/13/201811 DD/ 10 US: Radiologist's impression: [address] [address] Ultrasound Report Signed Patient: Lyle Palmer #: [id number] : 8Acct#:[id number] Age/Sex: 59 / MADM Date: 01/13/20 Loc: [facility]/Bed: Attending Dr: Ordering Provider/Ordering MD: Ciara Mcmahon MD, [facility] Date of Service: 01/13/20 Procedure(s): US gall bladder 93212 Accession Number(s): [id number] Report Number: [id number] WS: [id number] RIGHT UPPER QUADRANT ULTRASOUND HISTORY: abd pain, N/V, elevated liver enzymes COMPARISON: 01/28/2017 Liver: 16.0 cm in length. Liver is top normal size. Diffuse coarsened echotexture throughout the liver with a slightly irregular surface. No intrahepatic duct dilatation. Gallbladder: Not visualized. CBD: 0.7 cm Pancreas: Not visualized. Right kidney: 11.8 cm in length. Normal echogenicity with no mass or hydronephrosis. Aorta and IVC: Unremarkable. No ascites. US/US gall bladder [id number] IMPRESSION: 1. Technically difficult evaluation of the RIGHT upper quadrant. 2. Gallbladder is not identified. May be contracted or surgically absent. 3. Hepatic steatosis. Dictated By:Alessandra Feng DO Signed By:Alessandra Fengigned Date/Time:01/13/20 1336 DD/ 1335 Discharge Plan Discharge Patient Disposition: Xfer Short-Term Hosp Clinical Impression: Acute alteration in mental status, Hepatitis, Hyperbilirubinemia Pneumonia Qualifiers: Pneumonia type: due to unspecified organism Laterality: bilateral Lung location: lower lobe of lung Qualified Code(s): J18.9 - Pneumonia, unspecified organism Discharge Orders: Transfer Out of Facility (Order); Ordered 01/13/20 Ordered By: Ciara Mcmahon Interventions: ED Discharge Assessment Last Done: 01/13/20 21:13 ED Charges Last Done: 01/13/20 22:10 Discharge Date/Time: 01/13/20 22:10 Coding Level of Care Code ED 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
[2020-01-13 12:18] LABS: Basophils % 0.2 %; Eosinophils # 0.1 10^3/uL (0.0-0.8); Eosinophils % 1.3 %; Hemoglobin 12.8 g/dL (11.7-16.6); Lymphocytes # 0.7 10^3/uL (0.8-4.8); Lymphocytes % 7.1 %; Mean Corpuscular HGB Conc 32.8 g/dL (30.0-36.0); Mean Corpuscular Hemoglobin 30.3 pg (28.0-34.0); Mean Corpuscular Volume 92.2 fL (80-94); Mean Platelet Volume 9.7 fL (7.4-10.4); Monocytes # 0.6 10^3/uL (0.2-0.9); Monocytes % 6.3 %; Neutrophils # 8.1 10^3/uL (1.8-7.7); Neutrophils % 84.9 %; Nucleated Red Blood Cells % 0 %; Platelet Count 181 10^3/cmm (130-400); Red Blood Count 4.23 10^6/uL (4.1-5.3); White Blood Count 9.5 10^3/uL (4.0-10.0)
[2020-01-13 12:42] LABS: Alanine Aminotransferase 322 U/L (0-41); Albumin Level 4.2 g/dL (3.5-5.2); Alkaline Phosphatase 220 IU/L (40-130); Aspartate Amino Transferase 233 U/L (0-40); Blood Urea Nitrogen 8 mg/dL (8-23); C Reactive Protein 84.9 mg/L (0.0-4.9); Calcium 8.6 mg/dL (8.5-10.5); Carbon Dioxide 22 mmol/L (22-29); Chloride 98 mmol/L (98-107); Globulin 2.9 g/dL (1.3-4.6); Glomerular Filtration Rate 114.6 mL/min (90-130); Glucose 105 mg/dL (65-115); Lipase 19 U/L (13-60); Osmolality Calculated 274 mOsm/kg (285-295); Sodium 134 mmol/L (136-145); Total Bilirubin 2.4 mg/dL (0.15-1.2); Total Protein 7.1 g/dL (6.6-8.7)
--- NOTE | 2020-01-13 12:44 | US_ITS ---
WS: [id number] RIGHT UPPER QUADRANT ULTRASOUND HISTORY: abd pain, N/V, elevated liver enzymes COMPARISON: 01/28/2017 Liver: 16.0 cm in length. Liver is top normal size. Diffuse coarsened echotexture throughout the live r with a slightly irregular surface. No intrahepatic duct dilatation. Gallbladder: Not visualized. CBD: 0.7 cm Pancreas: Not visualized. Right kidney: 11.8 cm in length. Normal echogenicity with no mass or hydronephrosis. Aorta and IVC: Unremarkable. No ascites. US/US gall bladder [id number] IMPRESSION: 1. Technically difficult evaluation of the RIGHT upper quadrant. 2. Gallbladder is not identified. May be contracted or surgically absent. 3. Hepatic steatosis.
[2020-01-13 12:55] LABS: Glucose Urine UA Norm (Normal); Ketones Urine Negative (Negative); Protein Urine Neg (Negative); Urine Appearance Clear (CLEAR); Urine Color Amber (Yellow); pH Urine 8 (5-7)
[2020-01-13 12:56] LABS: Add Urine Microscopic? YES; Bilirubin Urine 1+ (NEGATIVE); Blood Urine Neg (Negative); Leukocyte Esterase Urine Trace (Negative); Nitrate Urine Negative (Negative); Squamous Epithelial Cell Urine 0-4 (0-5); Urobilinogen Urine 4+ mg/dL (Negative); WBC Urine 0-4 /hpf (0-5)
[2020-01-13 12:57] LABS: Add Urine Culture? No; Bacteria Urine TRACE
[2020-01-13] MEDS: iohexol 300 mg/mL 100 mL Btl IV (13:06)
[2020-01-13] MEDS: morphine 4 mg/mL SDV 1 mL IVP (15:28)
--- NOTE | 2020-01-13 15:30 | MRR_ITS ---
PROCEDURE INFORMATION: Exam: MR Abdomen Without Contrast Exam date and time: 01/13/2020 4:47 PM Age: 59 years old Clinical indication: Abdominal pain; Acute; Patient HX: PT. Is mentally handicapped. PT. Panicked when the machine made noise. PT did not understand the breath hold commands. Limited study. ; Additional info: Abdominal pain, fever, vomiting, elevated liver enzymes, TECHNIQUE: Imaging protocol: MR of the abdomen without contrast. COMPARISON: CT abdomen pelvis w con* [id number] 01/13/2020 12:51 PM FINDINGS: Limitations: Study is severely limited by patient motion. Liver: No gross abnormality is seen within the liver. Gallbladder and bile ducts: Visualization of the gallbladder and biliary tree is extremely limited on this examination due to motion. No biliary tract dilatation is identified . there are no definite stones. Pancreas: Unremarkable. No ductal dilation. Spleen: No significant finding is seen in the spleen. Adrenals: Unremarkable. No mass. Kidneys and ureters: There is a large benign-appearing simple cyst arising from the medial aspect of the right kidney as seen on CT. Stomach and bowel: Visualized stomach and intestines are unremarkable. Intraperitoneal space: No free fluid. Arteries: No abdominal aortic aneurysm. Bones/joints: Unremarkable. Soft tissues: Unremarkable. MR/MR MRCP 97210 IMPRESSION: Extremely limited examination due to patient motion. COMMENTS: Consistent with the [place] [employer]'s Incidental Findings Committee white paper (J Am Ronal Radiol 2018): Any incidental renal lesion less than 1.0 cm or classified as too small to characterize, or any incidental cystic renal lesion characterized as simple-appearing, is likely benign. No follow-up imaging is recommended for these lesions per consensus recommendations based on imaging criteria.
[2020-01-13] MEDS: cefTRIAXone 1,000 MG in sodium chloride 0.9% (plus) 50 ML 100 MG IV (15:33)
--- NOTE | 2020-01-13 17:15 | PC.NURSE ---
Pt in MRI
[2020-01-13 18:10] LABS: Hepatitis A Antibody IgM Non-Reactive (Nonreactive); Hepatitis B Core IgM Non-Reactive (Nonreactive); Hepatitis B Surface Antigen Non-Reactive (Nonreactive); Hepatitis C Virus Antibody Non-Reactive (Nonreactive)
[2020-01-13] MEDS: LORazepam 2 mg/mL INJ 1 mL 1 MG IVP (18:14)
--- NOTE | 2020-01-13 18:24 | PC.NURSE ---
Pt 86% on room air. Pt placed on 2LNC, sats 95%
[2020-01-13] MEDS: OLANZapine 10 mg VIAL IM (19:24)
--- NOTE | 2020-01-13 22:09 | PC.NURSE ---
Ems here for transport, report given and patient left in stable condition in care of ems.
== END 2020-01-13 22:10 | disposition short-term general hospital (02) ==
PROVIDERS: Emergency Provider Family Medicine
DX: J18.9 Pneumonia, unspecified organism (principal); K75.9 Inflammatory liver disease, unspecified; E80.6 Other disorders of bilirubin metabolism; R41.82 Altered mental status, unspecified; F17.210 Nicotine dependence, cigarettes, uncomplicated
CPT/HCPCS: 12345; 36415; 71045; 74177; 74181; 76705; 80053; 80074; 81001; 83605; 83690; 85025; 86140; 87040; 96365; 96372; 96375; 99283; 99285; A9270; J0696; J2060; J2270; J3490; Q9967

== ENCOUNTER 2020-10-07 19:53 | Emergency (ER) | payer MEDICARE, MEDICAID, SELFPAY ==
[2020-10-07 20:06] VITALS: BP 141/96; PULSE 86; RESP 14; TEMP 36.8; O2SAT 95; BMI 42.9
--- NOTE | 2020-10-07 20:11 | ED_ITS ---
HPI - Fall General: Chief Complaint: Fall Stated Complaint: fall Time Seen by Provider: 10/07/20 20:10 PFSH ED PFSH: Social History Smoking and tobacco status: current every day smoker Course Vital Signs: Vital signs: Vital Signs Temperature 98.2 F 10/07/20 20:06 Pulse Rate 86 10/07/20 20:06 Respiratory Rate 14 10/07/20 20:06 Blood Pressure 141/96 10/07/20 20:06 Pulse Oximetry 95 10/07/20 20:06 Discharge Plan Discharge Condition: Good Prescriptions: No Action atorvastatin 40 mg Tablet 40 mg PO DAILY RF: 0 Bactrim DS 800-160 mg Tablet 2 tab PO BID RF: 0 famotidine 20 mg Tablet 20 mg PO DAILY RF: 0 mupirocin 2 % ointment 1 applic TOPICAL BID RF: 0 Alphagan P 0.1 % Drops 1 drp OPHTHALMIC (EYE) BID RF: 0 sertraline 100 mg Tablet 200 mg PO DAILY RF: 0 Zyprexa 5 mg Tablet 5 mg PO DAILY RF: 0 erythromycin 5 mg/gram (0.5 %) Ointment 1 applic OPHTHALMIC (EYE) BEDTIME RF: 0 Flonase Allergy Relief 50 mcg/actuation [place],Suspension 1 spray INTRANASAL BID RF: 0 Zyprexa 20 mg Tablet 20 mg PO DAILY RF: 0 Claritin 10 mg Tablet 10 mg PO DAILY RF: 0 Flovent HFA 110 mcg/actuation Hfa Aerosol Inhaler 1 puff INHALATION BID RF: 0 Lumigan 0.01 % Drops 1 drp OPHTHALMIC (EYE) BEDTIME RF: 0 Incruse Ellipta 62.5 mcg/actuation Blister With Device 1 inh INHALATION DAILY RF: 0 Coding Level of Care Code ED Compliance Associate for Sajan King
--- NOTE | 2020-10-07 20:19 | ED_ITS ---
HPI - Fall General: Chief Complaint: Fall Stated Complaint: fall Time Seen by Provider: 10/07/20 20:10 Source: patient and other (caregiver) Mode of arrival: ambulatory Limitations: no limitations History of Present Illness: HPI Narrative: 60-year-old male who is a resident at [facility] states that roughly 1 hour ago he had tripped in his room and fell backwards into his wall. He did strike his head on the wall. He did not fall onto the ground. He did complain of a mild headache. He states his headache is currently a 1 out of 10. He had no loss conscious no vomiting. He has no pain elsewhere. He is ambulatory without any difficulty ambulating. Denies any worsening improving factors. Associated symptoms-after fall: Denies abdominal pain, chest pain, headache(s) or neck pain Review of Systems Const: Denies: fever(s), chills, body aches or change in appetite Eyes: Denies: blurry vision or eye discomfort ENMT: Denies: throat pain or dental pain Card: Denies: chest pain Resp: Denies: dyspnea GI: Denies: abdominal pain, nausea, vomiting or diarrhea : Denies: dysuria Musc: Denies: neck pain or back pain Skin/Breast: Denies: rash Neuro: Denies: headache(s) Psych: Denies: depression Fortunato/Lymph: Denies: easy bruising All/Imm: Denies: urticaria PFSH ED PFSH: Social History Smoking and tobacco status: current every day smoker Physical Exam Const: COMMON NORMALS: no acute distress, patient oriented x3 and healthy appearing HENMT: COMMON NORMALS: normocephalic and atraumatic HEAD & SCALP: normocephalic and atraumatic Eye: COMMON NORMALS: Equal, round and reactive pupils present and EOMs intact bilaterally PUPIL: Yes Equal, round and reactive pupils present Neck/C-Spine: COMMON NORMALS: full ROM and supple Chest: COMMONS NORMALS: normal inspection of the chest and normal palpation of entire chest wall Resp: COMMON NORMALS: normal respiratory effort, No retractions, No use of accessory muscles and clear to auscultation bilaterally AUSCULTATION: clear to auscultation bilaterally Cardio: COMMON NORMALS: regular rate, regular rhythm and No murmurs present (Cardio) RATE: regular rate RHYTHM: regular rhythm GI: COMMON NORMALS: Normal to inspection, nondistended, normoactive bowel sounds present, Soft to palpation, non-tender and no masses PALPATION: Yes Soft to palpation Extremity: COMMON NORMALS: normal to inspection and full ROM Neuro: COMMON NORMALS: patient oriented x3, moves all extremities and no focal motor deficits Psych: COMMON NORMALS: mental status grossly normal, Normal thought process present and cooperative THOUGHT PROCESS: Normal thought process present Skin: COMMON NORMALS: no rashes or lesions noted and no wounds GENERAL SKIN EXAM: no rashes or lesions noted Course Vital Signs: Vital signs: Vital Signs Temperature 98.2 F 10/07/20 20:06 Pulse Rate 86 10/07/20 20:06 Respiratory Rate 14 10/07/20 20:06 Blood Pressure 141/96 10/07/20 20:06 Pulse Oximetry 95 10/07/20 20:06 MDM - Fall MDM Narrative: Medical decision making narrative: Jayy presents here with a closed head injury. Mechanism is very minor nature. On his exam I did not notice any hematoma or obvious signs of injury. He had no loss consciousness. I did inform caregiver if he has worsening headache or any vomiting or change in mentation they are to return immediately. He is not on any blood thinners. They understand agree to plan. Discharge Plan Discharge Patient Disposition: Home Clinical Impression: CHI (closed head injury) Qualifiers: Encounter type: initial encounter Qualified Code(s): S09.90XA - Unspecified injury of head, initial encounter Condition: Stable Prescriptions: No Action atorvastatin 40 mg Tablet 40 mg PO DAILY RF: 0 Bactrim DS 800-160 mg Tablet 2 tab PO BID RF: 0 famotidine 20 mg Tablet 20 mg PO DAILY RF: 0 mupirocin 2 % ointment 1 applic TOPICAL BID RF: 0 Alphagan P 0.1 % Drops 1 drp OPHTHALMIC (EYE) BID RF: 0 sertraline 100 mg Tablet 200 mg PO DAILY RF: 0 Zyprexa 5 mg Tablet 5 mg PO DAILY RF: 0 erythromycin 5 mg/gram (0.5 %) Ointment 1 applic OPHTHALMIC (EYE) BEDTIME RF: 0 Flonase Allergy Relief 50 mcg/actuation [place],Suspension 1 spray INTRANASAL BID RF: 0 Zyprexa 20 mg Tablet 20 mg PO DAILY RF: 0 Claritin 10 mg Tablet 10 mg PO DAILY RF: 0 Flovent HFA 110 mcg/actuation Hfa Aerosol Inhaler 1 puff INHALATION BID RF: 0 Lumigan 0.01 % Drops 1 drp OPHTHALMIC (EYE) BEDTIME RF: 0 Incruse Ellipta 62.5 mcg/actuation Blister With Device 1 inh INHALATION DAILY RF: 0 Discharge Orders: Discharge ED (Routine); Ordered 10/07/20 Ordered By: Brayan Woods Discharge Diet: Advance as tolerated Discharge Activity: Resume usual activity Patient Instructions: Minor Head Injury (ED) Coding Level of Care Code ED Putty Maker for Sajan King
[2020-10-07 20:46] VITALS: BP 133/99; PULSE 93; RESP 16; O2SAT 95
== END 2020-10-07 20:48 | disposition home or self-care (01) ==
PROVIDERS: Emergency Provider Emergency Medicine
DX: S09.8XXA Other specified injuries of head, initial encounter (principal); F17.210 Nicotine dependence, cigarettes, uncomplicated; W01.198A Fall on same level from slipping, tripping and stumbling with subsequent striking against other object, initial encounter
CPT/HCPCS: 99281

== ENCOUNTER 2020-11-26 12:37 | Emergency (ER) | payer MEDICARE, MEDICAID, SELFPAY ==
--- NOTE | 2020-11-26 12:46 | CTR_ITS ---
PROCEDURE INFORMATION: Exam: CT Cervical Spine Without Contrast Exam date and time: 11/26/2020 1:11 PM Age: 60 years old Clinical indication: Injury or trauma; Blunt trauma; Patient HX: Fall from standing lac to R side of head; Additional info: Fall, neck pain TECHNIQUE: Imaging protocol: Computed tomography images of the cervical spine without contrast. Radiation optimization: All CT scans at this facility use at least one of these dose optimization techniques: automated exposure control; mA and/or kV adjustment per patient size (includes targeted exams where dose is matched to clinical indication); or iterative reconstruction. COMPARISON: CT cervical spin wo con* [id number] 09/27/2019 6:35 PM RADIATION DOSE METRICS: Total DLP (mGy-cm): 681.93 FINDINGS: Bones/joints: No acute fracture. Normal alignment. Discs/Spinal canal/Neural foramina: Chronic degenerative changes are present with disc space narrowing, sclerosis and osteophytes. There is sclerosis narrowing and hypertrophy of the cervical facet joints. There is no significant spinal stenosis. Lungs: Lung apices are normal. Soft tissues: Unremarkable. CT/CT cervical spin wo con* [id number] IMPRESSION: 1. No acute abnormality. 2. Chronic degenerative disease. Radiation Dose CTDIVOL = (mGy): DLP = 681.93 (mGy-cm)
--- NOTE | 2020-11-26 12:46 | CTR_ITS ---
PROCEDURE INFORMATION: Exam: CT Head Without Contrast Exam date and time: 11/26/2020 1:11 PM Age: 60 years old Clinical indication: Injury or trauma; Laceration; Without loss of consciousness; Without residual foreign body; Scalp; Patient HX: Fall from standing -loc lac to R side of head; Additional info: Fall, head lac TECHNIQUE: Imaging protocol: Computed tomography of the head without contrast. Radiation optimization: All CT scans at this facility use at least one of these dose optimization techniques: automated exposure control; mA and/or kV adjustment per patient size (includes targeted exams where dose is matched to clinical indication); or iterative reconstruction. COMPARISON: CT head wo con* [id number] 09/27/2019 6:32 PM RADIATION DOSE METRICS: Total DLP (mGy-cm): 1764.35 FINDINGS: Brain: No intracranial hemorrhage, edema or other acute abnormalities are seen in the brain. There is no mass effect or midline shift. There is generalized chronic atrophy with prominence of the ventricles and sulci. Cerebral ventricles: The ventricles are prominent due to chronic atrophy. Bones/joints: Unremarkable. No acute fracture. Paranasal sinuses: Visualized sinuses are unremarkable. No fluid levels. Mastoid air cells: Visualized mastoid air cells are well aerated. Soft tissues: Unremarkable. CT/CT head wo con* [id number] IMPRESSION: No acute intracranial abnormality. Radiation Dose CTDIVOL = (mGy): DLP = 1764.35 (mGy-cm)
[2020-11-26 12:47] VITALS: BP 140/98; PULSE 101; RESP 18; TEMP 37.1; O2SAT 94; BMI 25.4
--- NOTE | 2020-11-26 13:00 | ED_ITS ---
HPI - Wound/Laceration General: Chief Complaint: Wound/Laceration Stated Complaint: HEAD LAC FALL Time Seen by Provider: 11/26/20 13:00 History of Present Illness: HPI narrative: 60-year-old male patient was moving around in his bedroom and tripped with his walker. Patient struck his right parietal area of his scalp against the edge of the bed frame lacerating himself. Patient denies any loss of consciousness. Patient is alert and oriented. Patient resides at [facility] Onset (ago): minute(s) Location: scalp Place: home Patient tetanus UTD: No Context: accidental Associated symptoms: Reports no associated symptoms Treatments prior to arrival: bandage Review of Systems General: Reports: 10 or more systems reviewed and unremarkable except in HPI and below Skin/Breast: Reports: other (Scalp laceration) PFSH ED PFSH: Social History Smoking and tobacco status: current every day smoker Physical Exam Const: COMMON NORMALS: no acute distress and patient oriented x3 GENERAL APPEARANCE: cooperative HENMT: COMMON NORMALS: TM's normal bilaterally and Normal external nose present HEAD & SCALP: normal to inspection and other (7 cm V-shaped laceration/skin flap to the right parietal scalp.) NOSE: Normal external nose present TYMPANIC MEMBRANE: TM's normal bilaterally MOUTH: Normal oral and palatal mucosa present Eye: COMMON NORMALS: Equal, round and reactive pupils present and EOMs intact bilaterally ALIGNMENT: Yes other PUPIL: Yes Equal, round and reactive pupils present Neck/C-Spine: COMMON NORMALS: full ROM Lymph: LYMPHATIC: no lymphadenopathy noted Chest: COMMONS NORMALS: normal inspection of the chest Resp: COMMON NORMALS: normal respiratory effort EFFORT & INSPECTION: Yes able to speak in complete sentences Cardio: COMMON NORMALS: regular rate and regular rhythm RATE: regular rate RHYTHM: regular rhythm GI: COMMON NORMALS: non-tender Back/Pelvis: COMMON NORMALS: thoracic and lumbar spine normal to inspection Extremity: COMMON NORMALS: normal to inspection Neuro: COMMON NORMALS: patient oriented x3 and moves all extremities Psych: COMMON NORMALS: mental status grossly normal and cooperative Skin: COMMON NORMALS: no rashes or lesions noted GENERAL SKIN EXAM: no rashes or lesions noted Procedures Laceration Laceration 1: Site: scalp Side (If applicable): right Size (cm): 7 Description: flap Depth: simple, single layer Local Anesthetic: lidocaine 1% and with epi Amount of anesthesia used (mL): 6 Pre-repair: wound explored Skin layer closed with: other (lauren) Number of sutures: 12 Course Vital Signs: Vital signs: Vital Signs Temperature 98.7 F 11/26/20 12:47 Pulse Rate 101 H 11/26/20 12:47 Respiratory Rate 18 11/26/20 12:47 Blood Pressure 140/98 11/26/20 12:47 Pulse Oximetry 94 11/26/20 12:47 MDM - Wound/Laceration MDM Narrative: Medical decision making narrative: 60-year-old male patient comes in today with complaints of injuries sustained from fall. Patient has a laceration to his right parietal scalp that is flat in nature. Is approximately 7 cm. Patient is alert and oriented. Skin is warm and dry. Respirations are even lungs are clear to auscultation. Patient moves all extremities well. Differential diagnosis includes fracture, intracranial bleeding, concussion, laceration. CT of the head and neck indicated no fracture or acute injury. Laceration was closed with lauren. Patient tolerated well. Recommended follow-up with primary care for further instruction and removal lauren. Caregiver from the [facility] in which patient resides reports understanding agrees to plan. Discharge Plan Discharge Patient Disposition: Home Clinical Impression: Laceration Head injury Qualifiers: Encounter type: initial encounter Qualified Code(s): S09.90XA - Unspecified injury of head, initial encounter Fall Qualifiers: Encounter type: initial encounter Qualified Code(s): W19.XXXA - Unspecified fall, initial encounter Condition: Stable Prescriptions: No Action atorvastatin 40 mg Tablet 40 mg PO DAILY@20 RF: 0 famotidine 20 mg Tablet 20 mg PO DAILY@08 RF: 0 Alphagan P 0.1 % Drops 1 drp OPHTHALMIC (EYE) BID@08,20 RF: 0 sertraline 100 mg Tablet 200 mg PO DAILY@08 RF: 0 olanzapine [Zyprexa] 5 mg Tablet 5 mg PO DAILY@08 RF: 0 fluticasone propionate [Flonase Allergy Relief] 50 mcg/actuation [place],Suspension 2 spray INTRANASAL DAILY RF: 0 olanzapine [Zyprexa] 20 mg Tablet 20 mg PO DAILY@20 RF: 0 loratadine [Claritin] 10 mg Tablet 10 mg PO DAILY@08 RF: 0 Flovent HFA 110 mcg/actuation Hfa Aerosol Inhaler 2 puff INHALATION BID@08,20 RF: 0 Lumigan 0.01 % Drops 1 drp OPHTHALMIC (EYE) BEDTIME@20 RF: 0 Robafen DM 10-100 mg/5 mL Syrup 10 ml PO QID PRN (Reason: Cough) RF: 0 Tessalon Perles 100 mg Capsule 100 mg PO Q8H PRN (Reason: Cough) RF: 0 ibuprofen 200 mg Tablet 400 mg PO Q6H PRN (Reason: Pain) RF: 0 ProAir HFA 90 mcg/actuation Hfa Aerosol Inhaler 2 puff INHALATION BID PRN (Reason: Shortness Of Breath) RF: 0 Flonase 50 mcg/actuation [place],Suspension 1 spray INTRANASAL BID PRN (Reason: Allergy Symptoms) RF: 0 bacitracin-polymyxin B 500-10,000 unit/gram ointment See Rx Instructions .ROUTE .COMPLEX RF: 0 Anoro Ellipta 62.5-25 mcg/actuation Blister With Device 1 inh INHALATION DAILY@20 RF: 0 Discharge Orders: Discharge ED (Routine); Ordered 11/26/20 Ordered By: Josue Renteria Discharge Diet: Usual diet Discharge Activity: Increase activity as tolerated Patient Instructions: Staple Care (ED), Opioid Safety Activity Restrictions/Additional Instructions: Keep wound clean and dry for the next 48 hours. After that she can wash gently with mild soap and water. Then thoroughly dry. Lauren need to come out in 7 days. Follow-up with primary care or return to the ER for new concerns. Monitor patient for fever. Follow-up with primary care in 1 week for recheck. Coding Level of Care Code ED Bit Sharpener for Sajan Fwcelio Exam Comprehensive
[2020-11-26 14:30] VITALS: BP 135/86; PULSE 84; RESP 15; O2SAT 98
== END 2020-11-26 14:31 | disposition home or self-care (01) ==
PROVIDERS: Emergency Provider Nurse Practitioner Family
DX: S01.01XA Laceration without foreign body of scalp, initial encounter (principal); S09.90XA Unspecified injury of head, initial encounter; F17.210 Nicotine dependence, cigarettes, uncomplicated; W01.198A Fall on same level from slipping, tripping and stumbling with subsequent striking against other object, initial encounter
CPT/HCPCS: 12002; 70450; 72125; 99283

== ENCOUNTER 2021-07-22 00:08 | Emergency (ER) | payer MEDICARE, MEDICAID, SELFPAY ==
[2021-07-22 00:08] VITALS: BP 170/100; PULSE 71; RESP 18; TEMP 36.6; O2SAT 93; BMI 37.8
--- NOTE | 2021-07-22 00:17 | ED_ITS ---
HPI - Fall General: Chief Complaint: Fall Stated Complaint: FALL Time Seen by Provider: 07/22/21 00:11 Source: patient Mode of arrival: ambulatory Limitations: no limitations History of Present Illness: HPI Narrative: 61-year-old male here from a long-term after a fall. He states that he had fell over backwards and hit his head he has had pains superficial laceration and neck pain is currently in a c-collar he states that he has some soreness all over but no severe pain anywhere else patient is able to stand and ambulate in the room without any difficulties denies any hip leg or arm pain. Denies any back pain. Associated symptoms-after fall: Reports headache(s) and neck pain; Denies abdominal pain or chest pain Review of Systems Const: Denies: fever(s), chills, body aches or change in appetite Eyes: Denies: blurry vision or eye discomfort ENMT: Denies: throat pain or dental pain Card: Denies: chest pain Resp: Denies: dyspnea GI: Denies: abdominal pain, nausea, vomiting or diarrhea : Denies: dysuria Musc: Reports: neck pain Skin/Breast: Denies: rash Neuro: Reports: headache(s) Psych: Denies: depression Fortunato/Lymph: Denies: easy bruising All/Imm: Denies: urticaria PFSH ED PFSH: Social History Smoking and tobacco status: current every day smoker Physical Exam Const: COMMON NORMALS: no acute distress, patient oriented x3 and healthy appearing HENMT: COMMON NORMALS: normocephalic HEAD & SCALP: normocephalic OTHER: Superficial laceration to right upper forehead Eye: COMMON NORMALS: Equal, round and reactive pupils present and EOMs intact bilaterally PUPIL: Yes Equal, round and reactive pupils present Neck/C-Spine: OTHER: In c-collar complains of neck pain Chest: COMMONS NORMALS: normal inspection of the chest and normal palpation of entire chest wall Resp: COMMON NORMALS: normal respiratory effort, No retractions, No use of accessory muscles and clear to auscultation bilaterally AUSCULTATION: clear to auscultation bilaterally Cardio: COMMON NORMALS: regular rate, regular rhythm and No murmurs present (Cardio) RATE: regular rate RHYTHM: regular rhythm GI: COMMON NORMALS: Normal to inspection, nondistended, normoactive bowel sounds present, Soft to palpation, non-tender and no masses PALPATION: Yes Soft to palpation Extremity: COMMON NORMALS: normal to inspection and full ROM Neuro: COMMON NORMALS: patient oriented x3, moves all extremities and no focal motor deficits Psych: COMMON NORMALS: mental status grossly normal, Normal thought process present and cooperative THOUGHT PROCESS: Normal thought process present Skin: COMMON NORMALS: no rashes or lesions noted and no wounds GENERAL SKIN EXAM: no rashes or lesions noted Course Vital Signs: Vital signs: Vital Signs Temperature 98 F 07/22/21 00:08 Pulse Rate 71 07/22/21 00:08 Respiratory Rate 18 07/22/21 00:08 Blood Pressure 170/100 07/22/21 00:08 Pulse Oximetry 93 07/22/21 00:08 MDM - Fall MDM Narrative: Medical decision making narrative: Patient presents with a closed head injury after a fall he has a small laceration does not require suturing neck CT is normal patient was ambulatory in the room with no other signs of injuries he is stable for discharge he is to follow-up his PCP and return if worsening. Imaging Data^: CT Head: Radiologist's impression: [address] [address] [address] Scan Report Signed Patient: Lyle Palmer Unit #: [id number] : 1960 Age/Sex: 61 / M ADM Date: 07/22/21 Loc: ER Room/Bed: Attending Dr: Ordering Provider/Ordering MD: Brayan Woods MD Date of Service: 07/22/21 Procedure(s): CT head wo con* [id number] Accession Number(s): [id number] Report Number: [id number] PROCEDURE INFORMATION: Exam: CT Head Without Contrast Exam date and time: 07/22/2021 12:15 AM Age: 61 years old Clinical indication: Injury or trauma; Fall; Blunt trauma (contusions or hematomas); Patient HX: Patient fell backwards and struck occiput against floor. C/O head and neck pain. Patient appears confused. C collar in place. TECHNIQUE: Imaging protocol: Computed tomography of the head without contrast. Radiation optimization: All CT scans at this facility use at least one of these dose optimization techniques: automated exposure control; mA and/or kV adjustment per patient size (includes targeted exams where dose is matched to clinical indication); or iterative reconstruction. COMPARISON: CT head wo con* [id number] 11/26/2020 1:17 PM RADIATION DOSE METRICS: Total DLP (mGy-cm): 1591.97 FINDINGS: Brain: No acute infarct or hemorrhage. Cerebral ventricles: No ventriculomegaly. Paranasal sinuses: Paranasal sinuses are clear. No air-fluid level. Mastoid air cells: Visualized mastoid air cells are clear. Bones/joints: No fracture. Soft tissues: Unremarkable. CT/CT head wo con* [id number] IMPRESSION: 1. No acute infarct or hemorrhage. 2. No fracture. Dictated By: Sagar Swenson Signed By: Sagar Swenson Signed Date/Time: 07/22/21 004 DD/ [address]: Radiologist's impression: [address] [address] [address] Scan Report Signed Patient: Lyle Palmer Unit #: [id number] : 1960 Age/Sex: 61 / M ADM Date: 07/22/21 Loc: ER Room/Bed: Attending Dr: Ordering Provider/Ordering MD: Brayan Woods MD Date of Service: 07/22/21 Procedure(s): CT cervical spin wo con* [id number] Accession Number(s): [id number] Report Number: [id number] PROCEDURE INFORMATION: Exam: CT Cervical Spine Without Contrast Exam date and time: 07/22/2021 12:15 AM Age: 61 years old Clinical indication: Injury or trauma; Fall; Blunt trauma; Patient HX: Patient fell backwards and struck occiput against floor. C/O head and neck pain. Patient appears confused. C collar in place. TECHNIQUE: Imaging protocol: Computed tomography images of the cervical spine without contrast. Radiation optimization: All CT scans at this facility use at least one of these dose optimization techniques: automated exposure control; mA and/or kV adjustment per patient size (includes targeted exams where dose is matched to clinical indication); or iterative reconstruction. COMPARISON: CT cervical spin wo con* [id number] 11/26/2020 1:20 PM RADIATION DOSE METRICS: Total DLP (mGy-cm): 742.9 FINDINGS: Bones/joints: There is normal vertebral body alignment. There are normal vertebral body heights. The dens is intact. The lateral masses of C1 are symmetric. No fracture. Discs/Spinal canal/Neural foramina: Craniocervical articulation is normal. Severe intervertebral disc space narrowing at C5-T1 Lungs: Lung apices are normal. Soft tissues: Unremarkable. CT/CT cervical spin wo con* [id number] IMPRESSION: No fracture. Dictated By: Sagar Swenson Signed By: Sagar Swenson Signed Date/Time: 07/22/2144 DD/ Discharge Plan Discharge Patient Disposition: Home Clinical Impression: Closed head injury Qualifiers: Encounter type: initial encounter Qualified Code(s): S09.90XA - Unspecified injury of head, initial encounter Fall Qualifiers: Encounter type: initial encounter Qualified Code(s): W19.XXXA - Unspecified fall, initial encounter Condition: Stable Prescriptions: No Action atorvastatin 40 mg Tablet 40 mg PO DAILY@20 RF: 0 famotidine 20 mg Tablet 20 mg PO DAILY@08 RF: 0 Alphagan P 0.1 % Drops 1 drp OPHTHALMIC (EYE) BID@08,20 RF: 0 sertraline 100 mg Tablet 200 mg PO DAILY@08 RF: 0 olanzapine [Zyprexa] 5 mg Tablet 5 mg PO DAILY@08 RF: 0 fluticasone propionate [Flonase Allergy Relief] 50 mcg/actuation [place],Suspension 2 spray INTRANASAL DAILY RF: 0 olanzapine [Zyprexa] 20 mg Tablet 20 mg PO DAILY@20 RF: 0 loratadine [Claritin] 10 mg Tablet 10 mg PO DAILY@08 RF: 0 Flovent HFA 110 mcg/actuation Hfa Aerosol Inhaler 2 puff INHALATION BID@08,20 RF: 0 Lumigan 0.01 % Drops 1 drp OPHTHALMIC (EYE) BEDTIME@20 RF: 0 Robafen DM 10-100 mg/5 mL Syrup 10 ml PO QID PRN (Reason: Cough) RF: 0 Tessalon Perles 100 mg Capsule 100 mg PO Q8H PRN (Reason: Cough) RF: 0 ibuprofen 200 mg Tablet 400 mg PO Q6H PRN (Reason: Pain) RF: 0 ProAir HFA 90 mcg/actuation Hfa Aerosol Inhaler 2 puff INHALATION BID PRN (Reason: Shortness Of Breath) RF: 0 Flonase 50 mcg/actuation [place],Suspension 1 spray INTRANASAL BID PRN (Reason: Allergy Symptoms) RF: 0 bacitracin-polymyxin B 500-10,000 unit/gram ointment See Rx Instructions .ROUTE .COMPLEX RF: 0 Anoro Ellipta 62.5-25 mcg/actuation Blister With Device 1 inh INHALATION DAILY@20 RF: 0 Discharge Orders: Discharge ED (Routine); Ordered 07/22/21 Ordered By: Brayan Woods Discharge Diet: Advance as tolerated Discharge Activity: Resume usual activity Patient Instructions: Head Injury (ED) Coding Level of Care Code ED Presales Senior Specialist for Sajan Fwcelio Exam Comprehensive
== END 2021-07-22 01:13 | disposition home or self-care (01) ==
PROVIDERS: Emergency Provider Emergency Medicine
DX: S09.8XXA Other specified injuries of head, initial encounter (principal); W18.30XA Fall on same level, unspecified, initial encounter; F17.210 Nicotine dependence, cigarettes, uncomplicated
CPT/HCPCS: 70450; 72125; 99282

== ENCOUNTER 2021-10-03 13:53 | Outpatient (CLI) | payer MEDICARE, MEDICAID, SELFPAY ==
--- NOTE | 2021-10-03 14:01 | CT_ITS ---
WS: [id number] LDCT LUNG CANCER SCREENING TECHNIQUE: Noncontrast CT of the chest with coronal and sagittal reformatted images. CLINICAL INFORMATION: NICOTINR DEPENDENCE COMPARISON: None. DLP: 84.49 mGy.cm DIvol: Mean CTDIvol: 1.60 (mGy) All CT scans at [facility] use at least one of these dose optimization techniques: automat ed exposure control; mA and/or kV adjustment per patient size (includes targeted exams where dose is matched to clinical indication); or iterative reconstruction. FINDINGS: Some images degraded by breathing artifact. Normal caliber thoracic aorta. No mediastinal or hilar lymphadenopathy. No axillary lymphadenopathy. 3 mm noncalcified nodule RIGHT upper lobe. Tiny noncalcified subpleural nodule RIGHT upper lobe. Diffuse fatty infiltration of the liver. Hepatomegaly. Small esophageal hiatal hernia. Adrenal glands are normal. Noncontrast spleen is normal. Mild thoracic kyphosis with hypertrophic changes thoracic spine. Hazy atelectasis in the LEFT lower lobe and RIGHT middle lobe. Subsegmental atelectasis RIGHT middle lobe. CT/CT lung screening [id number] IMPRESSION: LUNG-RADS: 2-Benign Appearance or Behavior FOLLOW UP: 12 Month: Continue annual screening with LDCT
== END 2021-10-03 13:54 | disposition home or self-care (01) ==
LOC: RAD 13:55
PROVIDERS: Visit Provider Physician Assistant
DX: Z12.2 Encounter for screening for malignant neoplasm of respiratory organs (principal); F17.210 Nicotine dependence, cigarettes, uncomplicated
CPT/HCPCS: 71271

== ENCOUNTER 2021-11-05 21:48 | Emergency (ER) | payer MEDICARE, MEDICAID, SELFPAY ==
[2021-11-05 21:48] VITALS: BP 128/90; PULSE 91; RESP 22; TEMP 36.9; O2SAT 93; BMI 44.2
--- NOTE | 2021-11-05 21:51 | CTR_ITS ---
PROCEDURE INFORMATION: Exam: CT Cervical Spine Without Contrast Exam date and time: 11/05/2021 10:22 PM Age: 61 years old Clinical indication: Injury or trauma; Fall; Blunt trauma TECHNIQUE: Imaging protocol: Computed tomography images of the cervical spine without contrast. Radiation optimization: All CT scans at this facility use at least one of these dose optimization techniques: automated exposure control; mA and/or kV adjustment per patient size (includes targeted exams where dose is matched to clinical indication); or iterative reconstruction. COMPARISON: CT cervical spin wo con* [id number] 07/22/2021 12:27 AM RADIATION DOSE METRICS: Total DLP (mGy-cm): 804.01 FINDINGS: Vertebrae: Partial bony fusion of the C6 and C7 vertebral bodies is noted. Xjth-aq-ohaeifed degenerative changes are present in the cervical spine. No acute fracture is visualized. Spinal alignment is normal. Soft tissues: Unremarkable. Lungs: Mild centrilobular emphysema changes are present in the lung apices. CT/CT cervical spin wo con* [id number] IMPRESSION: 1. No cervical spine fracture. 2. Mild pulmonary emphysema.
--- NOTE | 2021-11-05 21:51 | CTR_ITS ---
PROCEDURE INFORMATION: Exam: CT Head Without Contrast Exam date and time: 11/05/2021 10:18 PM Age: 61 years old Clinical indication: Injury or trauma; Fall; Blunt trauma (contusions or hematomas) TECHNIQUE: Imaging protocol: Computed tomography of the head without contrast. Radiation optimization: All CT scans at this facility use at least one of these dose optimization techniques: automated exposure control; mA and/or kV adjustment per patient size (includes targeted exams where dose is matched to clinical indication); or iterative reconstruction. COMPARISON: CT head wo con* [id number] 07/22/2021 12:25 AM RADIATION DOSE METRICS: Total DLP (mGy-cm): 1050.99 FINDINGS: Brain: Mild brain atrophy is noted. No hemorrhage or evidence of acute infarction. Cerebral ventricles: No ventriculomegaly. Paranasal sinuses: Visualized sinuses are unremarkable. No fluid levels. Mastoid air cells: Visualized mastoid air cells are well aerated. Bones/joints: Unremarkable. No acute fracture. Soft tissues: Mild scarring is again seen in the right parietal scalp. No soft tissue swelling is detected. CT/CT head wo con* [id number] IMPRESSION: No acute intracranial abnormality.
--- NOTE | 2021-11-05 21:54 | W.ED.FALL ---
HPI - Fall General: Chief Complaint: Fall Stated Complaint: fall Source: patient and EMS Mode of arrival: EMS Limitations: no limitations History of Present Illness: 61-year-old male with a history of developmental delay who is here from a snf he had fell into the wall he hit his head he states he does have a headache and neck pain no loss of consciousness this happened just prior to arrival. Denies any other injuries. He rates his pain a 3 out of 10 Associated symptoms-after fall: Reports headache(s) and neck pain; Denies abdominal pain or chest pain Review of Systems Const: Denies: fever(s), chills, body aches or change in appetite Eyes: Denies: blurry vision or eye discomfort ENMT: Denies: throat pain or dental pain Card: Denies: chest pain Resp: Denies: dyspnea GI: Denies: abdominal pain, nausea, vomiting or diarrhea : Denies: dysuria Musc: Reports: neck pain; Denies: back pain Skin/Breast: Denies: rash Neuro: Reports: headache(s) Psych: Denies: depression Fortunato/Lymph: Denies: easy bruising All/Imm: Denies: urticaria PFS ED PFSH: Medical History (Updated 11/05/21 @ 23:21 by Brayan Woods MD) Cognitive developmental delay Social History Smoking and tobacco status: current every day smoker Physical Exam Const: COMMON NORMALS: no acute distress, patient oriented x3 and healthy appearing HENMT: COMMON NORMALS: normocephalic; head/scalp not atraumatic (contusion over right scalp) HEAD & SCALP: normocephalic; not atraumatic (contusion over right scalp) Eye: COMMON NORMALS: Equal, round and reactive pupils present and EOMs intact bilaterally PUPIL: Yes Equal, round and reactive pupils present Neck/C-Spine: COMMON NORMALS: full ROM and supple OTHER: midline tenderness Chest: COMMONS NORMALS: normal inspection of the chest and normal palpation of entire chest wall Resp: COMMON NORMALS: normal respiratory effort, No retractions, No use of accessory muscles and clear to auscultation bilaterally AUSCULTATION: clear to auscultation bilaterally Cardio: COMMON NORMALS: regular rate, regular rhythm and No murmurs present (Cardio) RATE: regular rate RHYTHM: regular rhythm GI: COMMON NORMALS: Normal to inspection, nondistended, normoactive bowel sounds present, Soft to palpation, non-tender and no masses PALPATION: Yes Soft to palpation Extremity: COMMON NORMALS: normal to inspection and full ROM Neuro: COMMON NORMALS: patient oriented x3, moves all extremities and no focal motor deficits Psych: COMMON NORMALS: mental status grossly normal, Normal thought process present and cooperative THOUGHT PROCESS: Normal thought process present Skin: COMMON NORMALS: no rashes or lesions noted and no wounds GENERAL SKIN EXAM: no rashes or lesions noted Course Vital Signs: Vital signs: Vital Signs Temperature 98.4 F 11/05/21 21:48 Pulse Rate 91 11/05/21 21:48 Respiratory Rate 22 H 11/05/21 21:48 Blood Pressure 121/90 11/05/21 22:52 Pulse Oximetry 91 11/05/21 22:52 MDM - Fall Medical Decision Making Patient presents here with a closed head injury from a fall he is well-appearing here head CT and C-spine CT are both negative he is stable for discharge is to follow-up PCP and return if worsening. Lab Data Radiology Impressions Cervical Spine CT 11/05/21 21:51 IMPRESSION: 1. No cervical spine fracture. 2. Mild pulmonary emphysema. Head CT 11/05/21 21:51 IMPRESSION: No acute intracranial abnormality. Discharge Plan Discharge Patient Disposition: Home Clinical Impression: CHI (closed head injury), Fall Condition: Stable Prescriptions: No Action atorvastatin 40 mg Tablet 40 mg PO DAILY@20 0RF famotidine 20 mg Tablet 20 mg PO DAILY@08 0RF Alphagan P 0.1 % Drops 1 drp OPHTHALMIC (EYE) BID@08,20 0RF sertraline 100 mg Tablet 200 mg PO DAILY@08 0RF olanzapine [Zyprexa] 5 mg Tablet 5 mg PO DAILY@08 0RF fluticasone propionate [Flonase Allergy Relief] 50 mcg/actuation [place],Suspension 2 spray INTRANASAL DAILY 0RF olanzapine [Zyprexa] 20 mg Tablet 20 mg PO DAILY@20 0RF loratadine [Claritin] 10 mg Tablet 10 mg PO DAILY@08 0RF Flovent HFA 110 mcg/actuation Hfa Aerosol Inhaler 2 puff INHALATION BID@08,20 0RF Lumigan 0.01 % Drops 1 drp OPHTHALMIC (EYE) BEDTIME@20 0RF Robafen DM 10-100 mg/5 mL Syrup 10 ml PO QID PRN (Reason: Cough) 0RF Tessalon Perles 100 mg Capsule 100 mg PO Q8H PRN (Reason: Cough) 0RF ibuprofen 200 mg Tablet 400 mg PO Q6H PRN (Reason: Pain) 0RF ProAir HFA 90 mcg/actuation Hfa Aerosol Inhaler 2 puff INHALATION BID PRN (Reason: Shortness Of Breath) 0RF Flonase 50 mcg/actuation [place],Suspension 1 spray INTRANASAL BID PRN (Reason: Allergy Symptoms) 0RF bacitracin-polymyxin B 500-10,000 unit/gram ointment See Rx Instructions .ROUTE .COMPLEX 0RF Rx Instructions: apply as directed to each eye at bedtime Anoro Ellipta 62.5-25 mcg/actuation Blister With Device 1 inh INHALATION DAILY@20 0RF Discharge Orders: Discharge ED (Routine); Ordered 11/05/21 Ordered By: Brayan Woods Discharge Diet: Advance as tolerated Discharge Activity: Resume usual activity Patient Instructions: Head Injury (ED) Coding Level of Care Code ED Digital Design Engineer for Sajan Fwd Exam Comprehensive
[2021-11-05 22:52] VITALS: BP 121/90; O2SAT 91
== END 2021-11-05 23:27 | disposition home or self-care (01) ==
PROVIDERS: Emergency Provider Emergency Medicine
DX: S09.90XA Unspecified injury of head, initial encounter (principal); W01.198A Fall on same level from slipping, tripping and stumbling with subsequent striking against other object, initial encounter; Y92.199 Unspecified place in other specified residential institution as the place of occurrence of the external cause; F17.200 Nicotine dependence, unspecified, uncomplicated
CPT/HCPCS: 70450; 72125; 99282

== ENCOUNTER 2022-02-17 22:47 | Emergency (ER) | payer MEDICARE, MEDICAID, SELFPAY ==
[2022-02-17 22:48] VITALS: BMI 29.6
[2022-02-17 22:51] VITALS: BP 159/99; PULSE 84; RESP 16; TEMP 37; O2SAT 91
--- NOTE | 2022-02-17 23:09 | W.ED.BACK ---
HPI - Back Pain/Injury General: Chief Complaint: Back Pain/Injury Stated Complaint: Fall back pain Time Seen by Provider: 02/17/22 22:53 Source: patient History of Present Illness: 61-year-old male with a history of developmental delay. He fell at home, striking his back on the door on the way down. He complains of lower back pain. It is nonradicular. No numbness or tingling. No weakness. No other complaints. He is not anticoagulated. He did not hit his head. He remembers the event. MD elicited complaint: back pain Pertinent past history: recent trauma Onset (ago): hour(s) Timing: constant Severity: moderate Quality: throbbing Location: lumbar spine Radiation: none Exacerbating factors: movement Relieving factors: none Associated symptoms: Deny abdominal pain, change in bowel habits, fever(s), hematuria, syncope or vomiting Review of Systems Const: Denies: fever(s) Card: Denies: chest pain or syncope Resp: Denies: dyspnea GI: Denies: abdominal pain, vomiting or change in bowel habits : Denies: hematuria Musc: Reports: back pain Skin/Breast: Denies: rash Neuro: Denies: headache(s) PFSH ED PFSH: Medical History Cognitive developmental delay Social History Smoking and tobacco status: current every day smoker Physical Exam Const: COMMON NORMALS: no acute distress GENERAL APPEARANCE: frail appearing (mildly); not ill appearing HENMT: COMMON NORMALS: atraumatic and Normal external nose present HEAD & SCALP: atraumatic FACE & SINUS: face symmetric NOSE: Normal external nose present Eye: COMMON NORMALS: Equal, round and reactive pupils present and EOMs intact bilaterally PUPIL: Yes Equal, round and reactive pupils present Chest: COMMONS NORMALS: normal inspection of the chest CHEST: Yes Symmetrical chest wall rise Resp: COMMON NORMALS: normal respiratory effort, No use of accessory muscles and clear to auscultation bilaterally AUSCULTATION: clear to auscultation bilaterally Cardio: COMMON NORMALS: regular rate and regular rhythm RATE: regular rate RHYTHM: regular rhythm GI: COMMON NORMALS: Normal to inspection, nondistended, normoactive bowel sounds present, Soft to palpation and non-tender PALPATION: Yes Soft to palpation : BLADDER/KIDNEY EXAM: No CVA tenderness Back/Pelvis: GENERAL BACK: No CVA tenderness LUMBAR SPINE/LOWER BACK: Yes normal to inspection, Yes lumbar spinal tenderness Lumbar spinal tenderness location: L4, No mass present and Yes straight leg raise negative bilaterally PELVIS: Yes no pain with anterior-posterior compression Extremity: COMMON NORMALS: normal to inspection Neuro: PRABHAKAR COMA SCALE: document GCS findings Prabhakar coma scale eye opening: Spontaneous Prabhakar coma scale verbal response: Orientated Prabhakar coma scale motor response: Obey commands Prabhakar coma scale total score: 15 Skin: GENERAL SKIN EXAM: no ecchymo Course Vital Signs: Vital signs: Vital Signs Temperature 98.6 F 02/17/22 22:51 Pulse Rate 79 02/18/22 00:52 Respiratory Rate 18 02/18/22 00:52 Blood Pressure 171/101 02/18/22 00:52 Pulse Oximetry 94 02/18/22 00:52 MDM - Back Pain/Injury Medical Decision Making Lumbar x-ray shows no acute fracture. There are some disc base narrowing. Pain is nonradicular. He is given a Percocet here. He will be allowed home Labs Radiology Impressions Lumbar Spine X-Ray 02/17/22 23:11 IMPRESSION: 1. Negative for fracture or dislocation. 2. L3-L4 and L4-L5 moderate largely posterior disc space narrowing. 3. Mild multilevel productive degenerative endplate changes throughout the spine. Discharge Plan Discharge Patient Disposition: Home Clinical Impression: Contusion of lower back Condition: Stable Prescriptions: New hydrocodone-acetaminophen 5-325 mg tablet 1 tab PO Q8H PRN (Reason: pain) Qty: 7 0RF No Action atorvastatin 40 mg Tablet 40 mg PO DAILY@20 famotidine 20 mg Tablet 20 mg PO DAILY@08 Alphagan P 0.1 % Drops 1 drp OPHTHALMIC (EYE) BID@08,20 sertraline 100 mg Tablet 200 mg PO DAILY@08 olanzapine [Zyprexa] 5 mg Tablet 5 mg PO DAILY@08 fluticasone propionate [Flonase Allergy Relief] 50 mcg/actuation [place],Suspension 2 spray INTRANASAL DAILY olanzapine [Zyprexa] 20 mg Tablet 20 mg PO DAILY@20 loratadine [Claritin] 10 mg Tablet 10 mg PO DAILY@08 Flovent HFA 110 mcg/actuation Hfa Aerosol Inhaler 2 puff INHALATION BID@08,20 Lumigan 0.01 % Drops 1 drp OPHTHALMIC (EYE) BEDTIME@20 Robafen DM 10-100 mg/5 mL Syrup 10 ml PO QID PRN (Reason: Cough) Tessalon Perles 100 mg Capsule 100 mg PO Q8H PRN (Reason: Cough) ibuprofen 200 mg Tablet 400 mg PO Q6H PRN (Reason: Pain) ProAir HFA 90 mcg/actuation Hfa Aerosol Inhaler 2 puff INHALATION BID PRN (Reason: Shortness Of Breath) Flonase 50 mcg/actuation [place],Suspension 1 spray INTRANASAL BID PRN (Reason: Allergy Symptoms) bacitracin-polymyxin B 500-10,000 unit/gram ointment See Rx Instructions .ROUTE .COMPLEX Rx Instructions: apply as directed to each eye at bedtime Anoro Ellipta 62.5-25 mcg/actuation Blister With Device 1 inh INHALATION DAILY@20 Discharge Orders: Discharge ED (Routine); Ordered 02/18/22 Ordered By: Jeffrey Neil Patient Instructions: Acute Low Back Pain (ED), Opioid Safety Coding Level of Care Code ED Prototype Machine Operator for Sajan Fwd Exam Comprehensive
--- NOTE | 2022-02-17 23:11 | XRR_ITS ---
PROCEDURE INFORMATION: Exam: XR Lumbosacral Spine Exam date and time: 02/17/2022 11:17 PM Age: 61 years old Clinical indication: Injury or trauma; Blunt trauma (contusions or hematomas); Patient HX: Fall at home. C/O back pain. ; Additional info: Fall back pain TECHNIQUE: Imaging protocol: Radiologic exam of the lumbosacral spine. Views: 2 or 3 views. COMPARISON: CT abdomen pelvis w con* [id number] 01/13/2020 12:51 PM FINDINGS: Bones/joints: L3-L4 and L4-L5 moderate largely posterior disc space narrowing. Mild multilevel productive degenerative endplate changes throughout the spine. Soft tissues: Unremarkable. XR/XR lumbar spine 2-3V* [id number] IMPRESSION: 1. Negative for fracture or dislocation. 2. L3-L4 and L4-L5 moderate largely posterior disc space narrowing. 3. Mild multilevel productive degenerative endplate changes throughout the spine.
[2022-02-18 00:43] VITALS: RESP 20
[2022-02-18] MEDS: oxyCODONE-APAP 5-325 mg Tablet 1 TAB PO (00:43)
[2022-02-18 00:52] VITALS: BP 171/101; PULSE 79; RESP 18; O2SAT 94
== END 2022-02-18 00:53 | disposition home or self-care (01) ==
PROVIDERS: Emergency Provider Emergency Medicine
DX: S30.0XXA Contusion of lower back and pelvis, initial encounter (principal); F17.210 Nicotine dependence, cigarettes, uncomplicated; W19.XXXA Unspecified fall, initial encounter
CPT/HCPCS: 72100; 99283

== ENCOUNTER 2022-06-15 18:10 | Emergency (ER) | payer MEDICARE, MEDICAID, SELFPAY ==
[2022-06-15 18:25] VITALS: BP 145/95; PULSE 81; TEMP 36.7; O2SAT 93; BMI 26.6
--- NOTE | 2022-06-15 18:31 | CTR_ITS ---
PROCEDURE INFORMATION: Exam: CT Cervical Spine Without Contrast Exam date and time: 06/15/2022 7:00 PM Age: 62 years old Clinical indication: Injury or trauma; Fall; Blunt trauma TECHNIQUE: Imaging protocol: Computed tomography of the cervical spine without contrast. Radiation optimization: All CT scans at this facility use at least one of these dose optimization techniques: automated exposure control; mA and/or kV adjustment per patient size (includes targeted exams where dose is matched to clinical indication); or iterative reconstruction. COMPARISON: CT cervical spin wo con* [id number] 11/05/2021 10:22 PM RADIATION DOSE METRICS: Total DLP (mGy-cm): 438.27 FINDINGS: Bones/joints: There is multilevel uncovertebral and facet hypertrophy with neural foramina narrowing. Multilevel degenerative disc disease. No acute fracture. No spondylolisthesis. Lungs: Lung apices are normal. Soft tissues: Unremarkable. CT/CT cervical spin wo con* [id number] IMPRESSION: No acute abnormality.
--- NOTE | 2022-06-15 18:31 | CTR_ITS ---
PROCEDURE INFORMATION: Exam: CT Head Without Contrast Exam date and time: 06/15/2022 6:57 PM Age: 62 years old Clinical indication: Injury or trauma; Fall; Blunt trauma (contusions or hematomas) TECHNIQUE: Imaging protocol: Computed tomography of the head without contrast. Radiation optimization: All CT scans at this facility use at least one of these dose optimization techniques: automated exposure control; mA and/or kV adjustment per patient size (includes targeted exams where dose is matched to clinical indication); or iterative reconstruction. COMPARISON: CT head wo con* [id number] 11/05/2021 10:18 PM RADIATION DOSE METRICS: Total DLP (mGy-cm): 1281.98 FINDINGS: Brain: There are mild periventricular and subcortical lucencies consistent with chronic microvascular ischemic changes.The wheeler-white differentiation is maintained. No hemorrhage. No edema. Cerebral ventricles: No ventriculomegaly. Paranasal sinuses: Visualized sinuses are unremarkable. No fluid levels. Mastoid air cells: Visualized mastoid air cells are well aerated. Orbital cavities: Bilateral cataract surgery. Bones/joints: Unremarkable. No acute fracture. Soft tissues: Unremarkable. CT/CT head wo con* [id number] IMPRESSION: No acute intracranial abnormality. Chronic microvascular ischemic changes.
--- NOTE | 2022-06-15 18:42 | W.ED.FALL ---
HPI - Fall General: Chief Complaint: Fall Stated Complaint: FOREHEAD LAC S/P FALL Time Seen by Provider: 06/15/22 18:27 Source: patient and EMS Mode of arrival: EMS Limitations: no limitations History of Present Illness: 62-year-old is here by EMS after a fall. [facility] he states he had fell hit his head he does have a laceration to his forehead denies any loss conscious does have neck and head pain. He denies any worsening improving factors. Associated symptoms-after fall: Reports headache(s) and neck pain; Denies abdominal pain or chest pain Review of Systems Const: Denies: fever(s), chills, body aches or change in appetite Eyes: Denies: blurry vision or eye discomfort ENMT: Denies: throat pain or dental pain Card: Denies: chest pain Resp: Denies: dyspnea GI: Denies: abdominal pain, nausea, vomiting or diarrhea : Denies: dysuria Musc: Reports: neck pain; Denies: back pain Skin/Breast: Denies: rash Neuro: Reports: headache(s) Psych: Denies: depression Fortunato/Lymph: Denies: easy bruising All/Imm: Denies: urticaria PFSH ED PFSH: Medical History Cognitive developmental delay Social History Smoking and tobacco status: current every day smoker Physical Exam Const: COMMON NORMALS: no acute distress, patient oriented x3 and healthy appearing HENMT: COMMON NORMALS: atraumatic HEAD & SCALP: atraumatic OTHER: 3cm laceration to forehead Eye: COMMON NORMALS: Equal, round and reactive pupils present and EOMs intact bilaterally PUPIL: Yes Equal, round and reactive pupils present Neck/C-Spine: COMMON NORMALS: full ROM and supple Chest: COMMONS NORMALS: normal inspection of the chest and normal palpation of entire chest wall Resp: COMMON NORMALS: normal respiratory effort, No retractions, No use of accessory muscles and clear to auscultation bilaterally AUSCULTATION: clear to auscultation bilaterally Cardio: COMMON NORMALS: regular rate, regular rhythm and No murmurs present (Cardio) RATE: regular rate RHYTHM: regular rhythm GI: COMMON NORMALS: Normal to inspection, nondistended, normoactive bowel sounds present, Soft to palpation, non-tender and no masses PALPATION: Yes Soft to palpation Extremity: COMMON NORMALS: normal to inspection and full ROM Neuro: COMMON NORMALS: patient oriented x3, moves all extremities and no focal motor deficits Psych: COMMON NORMALS: mental status grossly normal, Normal thought process present and cooperative THOUGHT PROCESS: Normal thought process present Skin: COMMON NORMALS: no rashes or lesions noted and no wounds GENERAL SKIN EXAM: no rashes or lesions noted Course Vital Signs: Vital signs: Vital Signs Temperature 98.1 F 06/15/22 18:25 Pulse Rate 88 06/15/22 19:22 Respiratory Rate 16 06/15/22 19:22 Blood Pressure 142/102 06/15/22 19:22 Pulse Oximetry 93 06/15/22 19:22 Oxygen Delivery Me thod 06/15/22 18:25 MDM - Fall Medical Decision Making Patient presents here with head injury from a fall he does have a superficial laceration does not require sutures head CT neck CT are normal he is stable for discharge he is to follow-up PCP and return if worsening. Lab Data Radiology Impressions Cervical Spine CT 06/15/22 18:31 IMPRESSION: No acute abnormality. Head CT 06/15/22 18:31 IMPRESSION: No acute intracranial abnormality. Chronic microvascular ischemic changes. Discharge Plan Discharge Patient Disposition: Home Clinical Impression: Fall, Head injury Condition: Stable Prescriptions: No Action atorvastatin 40 mg Tablet 40 mg PO DAILY@20 famotidine 20 mg Tablet 20 mg PO DAILY@08 Alphagan P 0.1 % Drops 1 drp OPHTHALMIC (EYE) BID@08,20 sertraline 100 mg Tablet 200 mg PO DAILY@08 olanzapine [Zyprexa] 5 mg Tablet 5 mg PO DAILY@08 fluticasone propionate [Flonase Allergy Relief] 50 mcg/actuation [place],Suspension 2 spray INTRANASAL DAILY olanzapine [Zyprexa] 20 mg Tablet 20 mg PO DAILY@20 loratadine [Claritin] 10 mg Tablet 10 mg PO DAILY@08 Flovent HFA 110 mcg/actuation Hfa Aerosol Inhaler 2 puff INHALATION BID@08,20 [place] 0.01 % Drops 1 drp OPHTHALMIC (EYE) BEDTIME@20 Robafen DM 10-100 mg/5 mL Syrup 10 ml PO QID PRN (Reason: Cough) Mitesh Mcmillan 100 mg Capsule 100 mg PO Q8H PRN (Reason: Cough) ibuprofen 200 mg Tablet 400 mg PO Q6H PRN (Reason: Pain) ProAir HFA 90 mcg/actuation Hfa Aerosol Inhaler 2 puff INHALATION BID PRN (Reason: Shortness Of Breath) Flonase 50 mcg/actuation [place],Suspension 1 spray INTRANASAL BID PRN (Reason: Allergy Symptoms) bacitracin-polymyxin B 500-10,000 unit/gram ointment See Rx Instructions .ROUTE .COMPLEX Rx Instructions: apply as directed to each eye at bedtime Anoro Ellipta 62.5-25 mcg/actuation Blister With Device 1 inh INHALATION DAILY@20 hydrocodone-acetaminophen 5-325 mg tablet 1 tab PO Q8H PRN (Reason: pain) Qty: 7 0RF Discharge Orders: Discharge ED (Routine); Ordered 06/15/22 Ordered By: Brayan Woods Discharge Diet: Advance as tolerated Discharge Activity: Resume usual activity Patient Instructions: Head Injury (ED) Coding Level of Care Code ED Applications Project Manager for Sajan Fwd Exam Comprehensive
--- NOTE | 2022-06-15 18:57 | PC.NURSE ---
PT STATES HE FELL AT HOME AND HIT HIS HEAD ON THE DRESSER. PT HAS AN APPROXIMATE 3CM BY 4CM SKIN TEAR ON THE CENTER OF HIS FOREHEAD. PT ALSO HAS RED SCLERA BILATERALLY AND HIS LEFT PUPIL IS CHRONICALLY DILATED.
[2022-06-15 19:22] VITALS: BP 142/102; PULSE 88; RESP 16; O2SAT 93
== END 2022-06-15 21:03 | disposition home or self-care (01) ==
PROVIDERS: Emergency Provider Emergency Medicine
DX: S01.81XA Laceration without foreign body of other part of head, initial encounter (principal); W19.XXXA Unspecified fall, initial encounter
CPT/HCPCS: 70450; 72125; 99284

== ENCOUNTER → 2022-08-19 10:24 | Outpatient (BNVA) | payer MEDICARE, MEDICAID, SELFPAY | PROVIDERS: Visit Provider Podiatrist Foot & Ankle Surgery | DX: B35.1 Tinea unguium (principal); R60.9 Edema, unspecified; I87.2 Venous insufficiency (chronic) (peripheral); F81.9 Developmental disorder of scholastic skills, unspecified | CPT/HCPCS: 99203 ==

== ENCOUNTER 2022-10-30 20:00 | Emergency (ER) | payer MEDICARE, MEDICAID, SELFPAY ==
[2022-10-30 20:00] VITALS: BP 167/102; PULSE 87; RESP 20; TEMP 36.6; O2SAT 95; BMI 37.5
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
[2022-10-30 20:06] VITALS: BP 167/102; PULSE 88; RESP 16; O2SAT 95
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
[2022-10-30 20:32] VITALS: RESP 18
[2022-10-30] MEDS: morphine 4 mg/mL SDV 1 mL IVP (20:32)
[2022-10-30] MEDS: iohexol 350 mg/mL 500 mL Btl (per mL) IV (21:17)
[2022-10-30 21:42] VITALS: BP 141/102; PULSE 76; RESP 16; O2SAT 92
[2022-10-30 22:05] VITALS: BP 149/102; PULSE 77; RESP 16; O2SAT 92
[2022-10-30 22:45] VITALS: BP 163/102; PULSE 77; RESP 16; O2SAT 94
--- NOTE | 2022-11-06 11:10 | DCPLANNER ---
digital marketing program manager called patient due to no primary care - caser was told that patient sees Liv Kumar for primary care.
== END 2022-10-30 22:47 | disposition home or self-care (01) ==
PROVIDERS: Emergency Provider Emergency Medicine; PCP Physician Assistant
DX: S09.90XA Unspecified injury of head, initial encounter (principal); S00.83XA Contusion of other part of head, initial encounter; Y04.2XXA Assault by strike against or bumped into by another person, initial encounter; F17.210 Nicotine dependence, cigarettes, uncomplicated
CPT/HCPCS: 70450; 70486; 71260; 72125; 73030; 73060; 74177; 96374; 99285; J2270; Q9967

== ENCOUNTER → 2022-11-04 13:51 | Outpatient (BNVA) | payer MEDICARE, MEDICAID, SELFPAY | PROVIDERS: Visit Provider Podiatrist Foot & Ankle Surgery | DX: B35.1 Tinea unguium (principal); I73.9 Peripheral vascular disease, unspecified; R60.9 Edema, unspecified; I87.2 Venous insufficiency (chronic) (peripheral); F81.9 Developmental disorder of scholastic skills, unspecified | CPT/HCPCS: 11721 ==

== ENCOUNTER 2022-11-23 10:12 | Outpatient (CLI) | payer MEDICARE, MEDICAID, SELFPAY ==
--- NOTE | 2022-11-23 10:19 | CT_ITS ---
WS: [id number] LDCT LUNG CANCER SCREENING HISTORY: LUNG SCREENING TECHNIQUE: Axial imaging performed from the apices to 1 cm below the costophrenic angles. Coronal and sagittal reformats are submitted with axial MIP series. All CT scans at [facility] use at least one of these dose optimization techniques: automated exposure control; mA and/or kV adjustment per patient size (includes targeted exams where dose is matched to clinical indication); or iterativ e reconstruction. DLP: 78.32 mGy.cm DIvol: Mean CTDIvol: 2.30 (mGy) COMPARISON: 10/03/2021, 10/30/2022 Diagnostic quality: Motion artifact. Lungs: Severe emphysema. Small nodules would be easily obscured with this amount of breathing motion artifact. Linear atelectasis LEFT lung base with adjacent hazy attenuation. Heart: Normal size heart with no pericardial effusion.. Other findings: Pulmonary artery is enlarged. Mild atherosclerosis aorta. No adenopathy. Gynecomastia . Hepatic steatosis and hepatomegaly. No adrenal mass identified. Small hernia. CT/CT lung screening [id number] IMPRESSION: LUNG-RADS: 1-Negative FOLLOW UP: 12 Month: Continue annual screening with LDCT OTHER FINDINGS (S MODIFIER): None. Examination is significantly compromised by breathing artifact.
== END 2022-11-23 10:13 | disposition home or self-care (01) ==
LOC: RAD 10:16
PROVIDERS: PCP Physician Assistant; Visit Provider Physician Assistant
DX: Z12.2 Encounter for screening for malignant neoplasm of respiratory organs (principal); F17.210 Nicotine dependence, cigarettes, uncomplicated; J43.9 Emphysema, unspecified; J98.11 Atelectasis; I77.89 Other specified disorders of arteries and arterioles
CPT/HCPCS: 71271

== ENCOUNTER → 2023-03-17 09:08 | Outpatient (BNVA) | payer MEDICARE, MEDICAID, SELFPAY | PROVIDERS: PCP Physician Assistant; Visit Provider Podiatrist Foot & Ankle Surgery | DX: B35.1 Tinea unguium (principal); R60.9 Edema, unspecified; I87.2 Venous insufficiency (chronic) (peripheral); F81.9 Developmental disorder of scholastic skills, unspecified; I73.9 Peripheral vascular disease, unspecified | CPT/HCPCS: 11721 ==

== ENCOUNTER 2023-04-02 10:38 | Outpatient (CLI) | payer MEDICARE, MEDICAID, SELFPAY ==
--- NOTE | 2023-04-02 10:47 | FL_ITS ---
WS: [id number] Exam: FL barium swallow modifd [id number] Date/Time of Exam: 04/02/2023 10:56 AM Reason For Exam: Other dysphagia Fluoroscopy time: 2min [id number] minutes # of spot films: Modified barium swallow was performed in conjunction with the speech therapy service. Mild swallowing dysfunction at the level of the oropharynx was noted. The patient ingested thin liqui d, pudding consistency and solid barium mixture foodstuffs without penetration or aspiration. The pat ient ingested a barium tablet without complication. IMPRESSION: 1. Oropharyngeal phase demonstrates mild swallowing dysfunction. 2. The patient otherwise tolerated all consistencies of barium mixture foodstuffs without aspiration or penetration. An additional report of the findings and recommendations will follow from the speech therapy service.
== END 2023-04-02 10:39 | disposition home or self-care (01) ==
LOC: RAD 10:40
PROVIDERS: PCP Physician Assistant; Visit Provider Physician Assistant
DX: R13.11 Dysphagia, oral phase (principal); Z91.89 Other specified personal risk factors, not elsewhere classified
CPT/HCPCS: 74230; 92611

== ENCOUNTER 2023-04-21 20:00 | Outpatient (CLI) | payer MEDICARE, MEDICAID, SELFPAY | END 2023-04-21 20:01 | disposition home or self-care (01) | LOC: SLEEP 04-22 05:10 | PROVIDERS: PCP Physician Assistant; Visit Provider Physician Assistant | DX: G47.10 Hypersomnia, unspecified (principal) | CPT/HCPCS: 95810 ==

== ENCOUNTER → 2023-05-19 08:43 | Outpatient (BNVA) | payer MEDICARE, MEDICAID, SELFPAY | PROVIDERS: PCP Physician Assistant; Visit Provider Podiatrist Foot & Ankle Surgery | DX: B35.1 Tinea unguium (principal); R60.9 Edema, unspecified; I87.2 Venous insufficiency (chronic) (peripheral); F81.9 Developmental disorder of scholastic skills, unspecified; I73.9 Peripheral vascular disease, unspecified | CPT/HCPCS: 11721 ==

== ENCOUNTER → 2023-07-28 09:25 | Outpatient (BNVA) | payer MEDICARE, MEDICAID, SELFPAY | PROVIDERS: PCP Physician Assistant; Visit Provider Podiatrist Foot & Ankle Surgery | DX: B35.1 Tinea unguium (principal); R60.9 Edema, unspecified; I87.2 Venous insufficiency (chronic) (peripheral); F81.9 Developmental disorder of scholastic skills, unspecified; I73.9 Peripheral vascular disease, unspecified | CPT/HCPCS: 11721 ==

== ENCOUNTER → 2023-10-06 09:47 | Outpatient (BNVA) | payer MEDICARE, MEDICAID, SELFPAY | PROVIDERS: PCP Physician Assistant; Visit Provider Podiatrist Foot & Ankle Surgery | DX: B35.1 Tinea unguium (principal); R60.9 Edema, unspecified; I87.2 Venous insufficiency (chronic) (peripheral); F81.9 Developmental disorder of scholastic skills, unspecified; I73.9 Peripheral vascular disease, unspecified | CPT/HCPCS: 11721 ==

== ENCOUNTER 2023-11-03 16:32 | Outpatient (CLI) | payer MEDICARE, MEDICAID, SELFPAY ==
--- NOTE | 2023-11-03 16:40 | CT_ITS ---
WS: [id number] CT HEAD NONCONTRAST HISTORY: Headache TECHNIQUE: Contiguous axial imaging performed through the brain in 2.5 mm imaging. Bone and soft tiss ue windows. Sagittal and coronal reformats reviewed. All CT scans at [facility] use at least one of these dose optimization techniques: automated exposure control; mA and/or kV adjustment per pa tient size (includes targeted exams where dose is matched to clinical indication); or iterative recon struction. DLP: 1618.53 mGy.cm COMPARISON: 10/30/2022 No acute intracranial hemorrhage, midline shift or mass effect. Mild to moderate diffuse cerebral atrophy is noted in the prior study. No acute infarct or sulcal eff acement. Ventricles: Ventricles are mildly prominent but similar to the prior study. Paranasal sinuses: As visualized are clear. Mastoid air cells: Partial opacification of the LEFT mastoid air cells. Similar to prior studies. Calvarium and scalp: Skull is intact with no soft tissue edema or swelling. IMPRESSION: 1. No acute intracranial hemorrhage or edema. 2. Mild to moderate diffuse cerebral atrophy and mild small vessel ischemic disease as noted on prio r studies. No acute interval change.
== END 2023-11-03 16:33 | disposition home or self-care (01) ==
LOC: RAD 16:32
PROVIDERS: PCP Physician Assistant; Visit Provider Physician Assistant
DX: R51.9 Headache, unspecified (principal); G31.9 Degenerative disease of nervous system, unspecified; I67.82 Cerebral ischemia
CPT/HCPCS: 70450

== ENCOUNTER 2023-12-01 08:47 | Outpatient (CLI) | payer MEDICARE, MEDICAID, SELFPAY ==
--- NOTE | 2023-12-01 08:56 | CT_ITS ---
WS: [id number] LDCT LUNG CANCER SCREENING TECHNIQUE: Noncontrast CT of the chest with coronal and sagittal reformatted images. CLINICAL INFORMATION: NICOTINE DEPENDENCE COMPARISON: 11/23/2022 DLP: 88.60 mGy.cm DIvol: Mean CTDIvol: 2.60 (mGy) All CT scans at [facility] use at least one of these dose optimization techniques: automat ed exposure control; mA and/or kV adjustment per patient size (includes targeted exams where dose is matched to clinical indication); or iterative reconstruction. FINDINGS: Chronic emphysematous changes. Slight bibasal atelectasis. No new suspicious pulmonary pare nchymal opacities. Normal caliber thoracic aorta vertebral calcification. No mediastinal or hilar lymphadenopathy. No me diastinal or hilar lymphadenopathy. No axillary lymphadenopathy. Hepatic steatosis. Small esophageal hernia mild thoracic curve. Mild thoracic kyphosis Hypertrophic changes thoracic spine. CT/CT lung screening [id number] IMPRESSION: LUNG-RADS: 1-Negative FOLLOW UP: 12 Month: Continue annual screening with LDCT
== END 2023-12-01 08:48 | disposition home or self-care (01) ==
LOC: RAD 08:47
PROVIDERS: PCP Physician Assistant; Visit Provider Physician Assistant
DX: F17.211 Nicotine dependence, cigarettes, in remission (principal); Z12.2 Encounter for screening for malignant neoplasm of respiratory organs
CPT/HCPCS: 71271

== ENCOUNTER → 2023-12-08 11:16 | Outpatient (BNVA) | payer MEDICARE, MEDICAID, SELFPAY | PROVIDERS: PCP Physician Assistant; Visit Provider Podiatrist Foot & Ankle Surgery | DX: B35.1 Tinea unguium (principal); R60.9 Edema, unspecified; I87.2 Venous insufficiency (chronic) (peripheral); F81.9 Developmental disorder of scholastic skills, unspecified; I73.9 Peripheral vascular disease, unspecified | CPT/HCPCS: 11721 ==

== ENCOUNTER 2024-02-17 07:21 | Observation (INO) | payer MEDICARE, MEDICAID, SELFPAY ==
[2024-02-17] VITALS (23 sets, daily range): BP systolic 121–163; BP diastolic 62–107; PULSE 90–116; RESP 16–22; TEMP 36.7–37.5; O2SAT 91–99; BMI 34.9
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
--- NOTE | 2024-02-17 07:22 | CTR_ITS ---
PROCEDURE INFORMATION: Exam: CTA Head With Contrast, Arteriography Exam date and time: 02/17/2024 7:28 AM Age: 63 years old Clinical indication: Speech disturbance and weakness; Additional info: CVA TECHNIQUE: Imaging protocol: Computed tomographic angiography of the head with contrast. Exam focused on the arteries. 3D rendering (Not supervised by radiologist): MIP and/or 3D reconstructed images were created by the technologist. Radiation optimization: All CT scans at this facility use at least one of these dose optimization techniques: automated exposure control; mA and/or kV adjustment per patient size (includes targeted exams where dose is matched to clinical indication); or iterative reconstruction. Contrast material: OMNI 350; Contrast volume: 100 ml; Contrast route: INTRAVENOUS (IV); COMPARISON: CT head thrombolytic [id number] 02/17/2024 7:23 AM RADIATION DOSE METRICS: Total DLP (mGy-cm): 544 FINDINGS: ANTERIOR CIRCULATION: Right internal carotid artery: Intracranial segment is patent with no significant stenosis. No aneurysm. Right middle cerebral artery: No occlusion or significant stenosis. No aneurysm. Right anterior cerebral artery: No occlusion or significant stenosis. No aneurysm. Left internal carotid artery: Intracranial segment is patent with no significant stenosis. No aneurysm. Left middle cerebral artery: No occlusion or significant stenosis. No aneurysm. Left anterior cerebral artery: No occlusion or significant stenosis. No aneurysm. POSTERIOR CIRCULATION: Right vertebral artery: No occlusion or significant stenosis. No aneurysm. Left vertebral artery: No occlusion or significant stenosis. No aneurysm. Basilar artery: No occlusion or significant stenosis. No aneurysm. Right posterior cerebral artery: No occlusion or significant stenosis. No aneurysm. Left posterior cerebral artery: No occlusion or significant stenosis. No aneurysm. Brain: No definite mass, mass effect, or midline shift. Cerebral ventricles: No ventriculomegaly. Bones/joints: Unremarkable. No acute fracture. Soft tissues: Unremarkable. PROCEDURE INFORMATION: Exam: CTA Neck With Contrast Exam date and time: 02/17/2024 7:28 AM Age: 63 years old Clinical indication: Speech disturbance and weakness; Additional info: CVA TECHNIQUE: Imaging protocol: Computed tomographic angiography of the neck with contrast. Exam focused on the cervical segments of the vasculature. 3D rendering (Not supervised by radiologist): MIP and/or 3D reconstructed images were created by the technologist. Radiation optimization: All CT scans at this facility use at least one of these dose optimization techniques: automated exposure control; mA and/or kV adjustment per patient size (includes targeted exams where dose is matched to clinical indication); or iterative reconstruction. Contrast material: OMNI 350; Contrast volume: 100 ml; Contrast route: INTRAVENOUS (IV); COMPARISON: CT head thrombolytic [id number] 02/17/2024 7:23 AM RADIATION DOSE METRICS: Total DLP (mGy-cm): 544 FINDINGS: Right common carotid artery: No stenosis. No dissection or occlusion. Right internal carotid artery: No stenosis of the extracranial segment. No dissection or occlusion. Right external carotid artery: No occlusion or stenosis of the origin. Left common carotid artery: No stenosis. No dissection or occlusion. Left internal carotid artery: No stenosis of the extracranial segment. No dissection or occlusion. Left external carotid artery: No occlusion or stenosis of the origin. Right vertebral artery: No stenosis. No dissection or occlusion. Left vertebral artery: No stenosis. No dissection or occlusion. Soft tissues: Normal. No significant soft tissue swelling. Bones/joints: No acute fracture. Degenerative changes with disc space narrowing and spurring. CT/CT angio headneck* [id number] IMPRESSION: No large vessel stenosis or occlusion. IMPRESSION: No stenosis or occlusion. REFERENCES: NASCET CRITERIA. The degree of stenosis in the cervical segment of the internal carotid artery is based on NASCET criteria. Normal is no stenosis. Mild is less than 50% stenosis. Moderate is 50-69% stenosis. Severe is 70% to 99% stenosis. Total occlusion is no detectable patent lumen.
--- NOTE | 2024-02-17 07:22 | CTR_ITS ---
PROCEDURE INFORMATION: Exam: CT Head Without Contrast Exam date and time: 02/17/2024 7:23 AM Age: 63 years old Clinical indication: Stroke-like symptoms; Speech disturbance; Lt upper extremity weakness; Additional info: Acute symptoms of stroke TECHNIQUE: Imaging protocol: Computed tomography of the head without contrast. Radiation optimization: All CT scans at this facility use at least one of these dose optimization techniques: automated exposure control; mA and/or kV adjustment per patient size (includes targeted exams where dose is matched to clinical indication); or iterative reconstruction. Other technique: STROKE PROTOCOL was implemented. COMPARISON: CT head wo con* [id number] 11/03/2023 4:55 PM RADIATION DOSE METRICS: Total DLP (mGy-cm): 1234.18 FINDINGS: Brain: Normal. No hemorrhage. Unremarkable white matter. No mass effect. Cerebral ventricles: No ventriculomegaly. Ventricular prominence proportionate to the degree of atrophy observed. Paranasal sinuses: Visualized sinuses are unremarkable. No fluid levels. Mastoid air cells: Visualized mastoid air cells are well aerated. Bones: Unremarkable. No acute fracture. Soft tissues: Unremarkable. CT/CT head thrombolytic [id number] IMPRESSION: No acute intracranial abnormality. ASSESSMENT: ASPECTS ([place] Stroke Program Early CT Score) is 10. .
[2024-02-17] MEDS: iohexol 350 mg/mL 500 mL Btl (per mL) IV ×2 (07:39→09:30)
--- NOTE | 2024-02-17 07:46 | ECG_ITS ---
[facility] Test Date: 2024-02-17 Pat Name: Lyle Palmer Department: Room: Gender: Male Principal Investigator: : 1960 Requested By: Brayan Woods Order Number: [id number] Sera MD: Rylee Swan M.D. Measurements Intervals [place] Rate: 111 P: 35 NJ: 150 QRS: 16 QRSD: 117 T: -4 QT: 339 QTc: 463 Interpretive Statements SINUS TACHYCARDIA LOW QRS VOLTAGE IN PRECORDIAL LEADS [QRS DEFLECTION < 1.0 mV IN CHEST LEADS] RIGHT BUNDLE BRANCH BLOCK [120+ ms QRS DURATION, UPRIGHT V1, 40+ ms S IN I/aVL/V4/V5/V6] Compared to ECG 01/27/2017 16:27:03 Low QRS voltage now present Right bundle-branch block now present Sinus rhythm no longer present Incomplete right bundle-branch block no longer present Electronically Signed On 02-18-2024 6:25:42 CDT by Rylee Swan M.D. [id number]
--- NOTE | 2024-02-17 07:48 | ED_ITS ---
HPI - Neuro Symptoms/Deficit 2 General: Chief Complaint: Neuro Symptoms/Deficit Stated Complaint: Stroke alert Time Seen by Provider: 02/17/24 07:22 Source: patient and EMS Mode of arrival: EMS Limitations: no limitations History of Present Illness: 63-year-old male is here from [facility] states that yesterday he noticed that he is having weakness he is also been having some slurred speech states this morning and noticed some left-sided facial droop that is since resolved I do not know patient he has a history of MR he does have some dysarthria per EMS caregiver states this is worse than his typical patient has no headache denies any complaints here. Patient also has low-grade fever he is slightly hypoxic here he had a mild cough Associated symptoms: Deny chest pain, headache(s), nausea or vomiting Review of Systems 2 Const: Denies: fever(s), chills, body aches or change in appetite Eyes: Denies: blurry vision or eye discomfort ENMT: Denies: throat pain or dental pain Card: Denies: chest pain Resp: Reports: dyspnea and non-productive cough GI: Denies: abdominal pain, nausea, vomiting or diarrhea Musc: Denies: neck pain or back pain Skin/Breast: Denies: rash Neuro: Reports: weakness in extremities and Slurred speech present; Denies: headache(s) PFSH ED 2 PFSH: Medical History Cognitive developmental delay Social History Smoking and tobacco/nicotine status: current every day tobacco/nicotine user NIH stroke score 2 NIHSS: Level Of Consciousness - 1a: 0 Level Of Consciousness Questions - 1b: Both Correct Level Of Consciousness Commands - 1c: Both Correct Best Gaze - 2: Normal Visual Concepcion - 3: No Visual Loss Facial Palsy - 4: N ormal Motor Arm Right - 5: No Drift Motor Arm Left - 5: No Drift Motor Leg Right - 6: No Drift Motor Leg Left - 6: No Drift Limb Ataxia - 7: A bsent Sensory - 8: Normal Best Language - 9: No Aphasia Dysarthia - 10: Mild/Moderate Dysarthia Extinction And Inattention - 11: 0 Score: Total Score: 1 Physical Exam 2 Const: COMMON NORMALS: patient oriented x3 and healthy appearing HENMT: COMMON NORMALS: normocephalic and atraumatic HEAD & SCALP: n ormocephalic and atraumatic Eye: COMMON NORMALS: Equal, round and reactive pupils present and EOMs intact bilaterally PUPIL: Yes Equal, round and reactive pupils present Neck/C-Spine: COMMON NORMALS: full ROM and supple Chest: COMMONS NORMALS: normal inspection of the chest Resp: COMMON NORMALS: No retractions and No use of accessory muscles A USCULTATION: crackles Cardio: COMMON NORMALS: regular rhythm and No murmurs present (Cardio) R ATE: tachycardic RHYTHM: regular rhythm GI: COMMON NORMALS: non-tender Extremity: COMMON NORMALS: normal to inspection and full ROM Neuro: COMMON NORMALS: patient oriented x3, moves all extremities and no focal motor deficits CRANIAL NERVES: Yes CN normal except as noted SPEECH: a bnormal speech Details: slurred MOTOR EXAM: 5/5 motor strength present throughout Psych: COMMON NORMALS: mental status grossly normal, Normal thought process present and cooperative THOUGHT PROCESS: Normal thought process present Skin: COMMON NORMALS: no rashes or lesions noted and no wounds GENERAL SKIN EXAM: no rashes or lesions noted Course 2 Vital Signs: Vital signs: Vital Signs Temperature 99.2 F 02/17/24 07:47 Pulse Rate 98 02/17/24 10:15 Respiratory Rate 18 02/17/24 10:15 Blood Pressure 138/87 02/17/24 10:15 Pulse Oximetry 98 02/17/24 10:15 Oxygen Delivery Me thod Nasal Cannula 02/17/24 08:00 Oxygen Flow Rate 2 02/17/24 08:00 MDM - Neuro Symptoms/Deficit Medical Decision Making Patient presents here with initial strokelike symptoms of spoke to his caregivers and with a now states he is back to his baseline with his normal speech he was hypoxic here has an elevated white count and lactate concerning for sepsis treatment sepsis fluid bolus started on antibiotics spoke to hospitalist will admit at this time had blood cultures drawn as well. Medical Records I reviewed the patient's medical records. Lab Data I reviewed the patient's lab results. 02/17/24 07:06 02/17/24 07:06 Radiology Impressions Chest X-Ray 02/17/24 07:22 IMPRESSION: Possible mild opacity at the left lung base. Head CT 02/17/24 07:22 IMPRESSION: No acute intracranial abnormality. ASSESSMENT: ASPECTS ([place] Stroke Program Early CT Score) is 10. . Head/Neck CTA 02/17/24 07:22 IMPRESSION: No large vessel stenosis or occlusion. IMPRESSION: No stenosis or occlusion. REFERENCES: NASCET CRITERIA. The degree of stenosis in the cervical segment of the internal carotid artery is based on NASCET criteria. Normal is no stenosis. Mild is less than 50% stenosis. Moderate is 50-69% stenosis. Severe is 70% to 99% stenosis. Total occlusion is no detectable patent lumen. Chest CTA 02/17/24 08:15 IMPRESSION: 1. No evidence of pulmonary embolus. 2. Bibasilar atelectasis. 3. Moderate esophageal hernia. 4. Hepatomegaly. Laboratory Results WBC 11.71 10^3/uL (3.29-11.43) H 02/17/24 07:06 RBC 4.49 10^6/uL (3.85-5.65) 02/17/24 07:06 Hgb 13.40 g/dL (11.27-16.99) 02/17/24 07:06 Hct 40.8 % (37-53) 02/17/24 07:06 MCV 90.9 fl (82-101) 02/17/24 07:06 MCH 29.8 pg (27-33) 02/17/24 07:06 MCHC 32.8 g/dL (30-55) 02/17/24 07:06 RDW 13.2 % (12.1-15.1) 02/17/24 07:06 Plt Count 205 10^3/cmm (157-399) 02/17/24 07:06 MPV 11.0 fL (7.4-10.4) H 02/17/24 07:06 Neut % (Auto) 87.5 % 02/17/24 07:06 Lymph % (Auto) 6.9 % 02/17/24 07:06 [place] % (Auto) 4.4 % 02/17/24 07:06 Eos % (Auto) 0.6 % 02/17/24 07:06 Baso % (Auto) 0.2 % 02/17/24 07:06 Neut # (Auto) 10.25 10^3/uL (1.8-7.7) H 02/17/24 07:06 Lymph # (Auto) 0.8 10^3/uL (0.8-4.8) 02/17/24 07:06 [place] # (Auto) 0.5 10^3/uL (0.2-0.9) 02/17/24 07:06 Eos # (Auto) 0.1 10^3/uL (0.0-0.8) 02/17/24 07:06 Baso # (Auto) 0.0 10^3/uL (0.0-0.1) 02/17/24 07:06 Nucleated RBC % (auto) 0 % 02/17/24 07:06 Nucleated RBCs # 0.0 /100WBC 02/17/24 07:06 PT 14.20 SECONDS (12.1-14.9) 02/17/24 07:06 INR 1.06 (0.8-1.2) 02/17/24 07:06 APTT 31.6 SECONDS (23.9-36.7) 02/17/24 07:06 Sodium 138 mmol/L (136-145) 02/17/24 07:06 Potassium 4.3 mmol/L (3.5-5.1) 02/17/24 07:06 Chloride 100 mmol/L (98-107) 02/17/24 07:06 Carbon Dioxide 21 mmol/L (22-29) L 02/17/24 07:06 Anion Gap 21.3 (5-19) H 02/17/24 07:06 BUN 10 mg/dL (8-23) 02/17/24 07:06 Creatinine 1.0 mg/dL (0.7-1.2) 02/17/24 07:06 GFR Calculation 75.0 mL/min (90-130) L 02/17/24 07:06 Glucose 118 mg/dL (65-115) H 02/17/24 07:06 Calculated Osmolality 286 mOsm/kg (285-295) 02/17/24 07:06 Lactic Acid 4.3 mmol/L (0.5-2.2) H* 02/17/24 07:06 Calcium 8.9 mg/dL (8.5-10.5) 02/17/24 07:06 Total Bilirubin 0.8 mg/dL (0.15-1.2) 02/17/24 07:06 AST 109 U/L (0-40) H 02/17/24 07:06 ALT 91 U/L (0-41) H 02/17/24 07:06 Alkaline Phosphatase 115 U/L (40-130) 02/17/24 07:06 NT-Pro-B Natriuret Pep 73 pg/mL (0-125) 02/17/24 07:06 Total Protein 8.1 g/dL (6.6-8.7) 02/17/24 07:06 Albumin 4.6 g/dL (3.5-5.2) 02/17/24 07:06 Globulin 3.5 g/dL (1.3-4.6) 02/17/24 07:06 Urine Color Yellow (Yellow) 02/17/24 08:30 Urine Appearance Clear (CLEAR) 02/17/24 08:30 Urine pH 7 (5-7) 02/17/24 08:30 Ur Specific [place] 1.000 (1.005-1.030) L 02/17/24 08:30 Urine Protein Neg (Negative) 02/17/24 08:30 Urine Glucose (UA) Norm (Normal) 02/17/24 08:30 Urine Ketones Negative (Negative) 02/17/24 08:30 Urine Blood Neg (Negative) 02/17/24 08:30 Urine Nitrate Negative (Negative) 02/17/24 08:30 Urine Bilirubin Neg (Negative) 02/17/24 08:30 Urine Urobilinogen Norm mg/dL (Negative) 02/17/24 08:30 Ur Leukocyte Esterase Trace (Negative) H 02/17/24 08:30 Urine RBC Rare /hpf (0-2) 02/17/24 08:30 Urine WBC 0-4 /hpf (0-5) H 02/17/24 08:30 Ur Squamous Epith Cells Rare /hpf (0-5) 02/17/24 08:30 Amorphous Sediment Not Reportable 02/17/24 08:30 Urine Bacteria Trace /hpf (NONE) 02/17/24 08:30 Urine Opiates Screen Negative ng/mL (Negative) 02/17/24 08:30 Ur Barbiturates Screen Negative ng/mL (Negative) 02/17/24 08:30 Ur Phencyclidine Scrn Negative ng/mL (Negative) 02/17/24 08:30 Ur Amphetamines Screen Negative ng/mL (Negative) 02/17/24 08:30 U Benzodiazepines Scrn Positive ng/mL (Negative) H 02/17/24 08:30 Urine Cocaine Screen Negative ng/mL (Negative) 02/17/24 08:30 U Marijuana (THC) Screen Negative ng/mL (Negative) 02/17/24 08:30 SARS-CoV-2 Ag (Rapid) negative (Negative) 02/17/24 08:48 All radiology interpretation(s) finalized by discharge EKG Data EKG 1: I personally reviewed and interpreted this EKG as follows: EKG interpretation date: 02/17/24 EKG interpretation time: 07:46 Interpretation: sinus tach hr [address] elevation qrs 117 qtc 405 Discharge Plan Discharge Patient Disposition: Admitted As Inpatient Clinical Impression: Sepsis, Hypoxia Condition: Stable Discharge Diet: Advance as tolerated Discharge Activity: Resume usual activity Coding Level of Care Code ED 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
[2024-02-17 08:00] LABS: Basophils % 0.2 %; Eosinophils # 0.1 10^3/uL (0.0-0.8); Eosinophils % 0.6 %; Hematocrit 40.8 % (37-53); Lymphocytes # 0.8 10^3/uL (0.8-4.8); Lymphocytes % 6.9 %; Mean Corpuscular HGB Conc 32.8 g/dL (30-55); Mean Corpuscular Hemoglobin 29.8 pg (27-33); Mean Corpuscular Volume 90.9 fl (82-101); Monocytes # 0.5 10^3/uL (0.2-0.9); Monocytes % 4.4 %; Neutrophils # 10.25 10^3/uL (1.8-7.7); Neutrophils % 87.5 %; Nucleated Red Blood Cells % 0 %; Platelet Count 205 10^3/cmm (157-399); Red Blood Count 4.49 10^6/uL (3.85-5.65); Red Cell Distribution Width 13.2 % (12.1-15.1); White Blood Count 11.71 10^3/uL (3.29-11.43)
--- NOTE | 2024-02-17 08:15 | CT_ITS ---
WS: [id number] CTA OF THE CHEST WITH PULMONARY EMBOLISM PROTOCOL TECHNIQUE: High-resolution contrast enhanced CTA of the chest with coronal and sagittal reformatted i mages with pulmonary embolism protocol. MIP images are also reviewed. CLINICAL INFORMATION: sob COMPARISON: None. DLP: 428.[address] scans at [facility] use at least one of these dose optimization techniques: automated e xposure control; mA and/or kV adjustment per patient size (includes targeted exams where dose is matc hed to clinical indication); or iterative reconstruction. FINDINGS: Proximal main pulmonary arteries are normal. Normal segmental and subsegmental pulmonary arteries. No evidence of pulmonary embolus. Atelectasis in the lung bases. No focal pneumonia. Normal caliber thoracic aorta. Aortic calcificatio n. Moderate esophageal hernia. Hepatomegaly. Adrenal glands are normal. Mild thoracic kyphosis with hype rtrophic changes thoracic spine. CT/CT angio chest PE protcl [id number] IMPRESSION: 1. No evidence of pulmonary embolus. 2. Bibasilar atelectasis. 3. Moderate esophageal hernia. 4. Hepatomegaly.
[2024-02-17 08:17] LABS: Alanine Aminotransferase 91 U/L (0-41); Albumin Level 4.6 g/dL (3.5-5.2); Alkaline Phosphatase 115 U/L (40-130); Blood Urea Nitrogen 10 mg/dL (8-23); Calcium 8.9 mg/dL (8.5-10.5); Carbon Dioxide 21 mmol/L (22-29); Chloride 100 mmol/L (98-107); Creatinine Clr Calc Pharmacy 83.4588; Globulin 3.5 g/dL (1.3-4.6); Glucose 118 mg/dL (65-115); Osmolality Calculated 286 mOsm/kg (285-295); Sodium 138 mmol/L (136-145); Total Bilirubin 0.8 mg/dL (0.15-1.2); Total Protein 8.1 g/dL (6.6-8.7)
[2024-02-17 08:18] LABS: Anion Gap 21.3 (5-19); Aspartate Amino Transferase 109 U/L (0-40); Potassium 4.3 mmol/L (3.5-5.1)
[2024-02-17 08:22] LABS: INR 1.06 (0.8-1.2)
[2024-02-17 08:23] LABS: Partial Thromboplastin Time 31.6 SECONDS (23.9-36.7)
[2024-02-17 08:32] LABS: NT Pro B Type Natriuretic Pept 73 pg/mL (0-125)
[2024-02-17] MEDS: acetaminophen 325 mg Tablet 650 MG PO (08:45)
[2024-02-17 08:50] LABS: Lactic Sepsis W/Reflex 4.3 mmol/L (0.5-2.2)
[2024-02-17 08:53] LABS: Amphetamines Screen Urine Negative (Negative); Barbiturates Screen Urine Negative (Negative); Benzodiazepines Screen Urine Positive (Negative); Cocaine Screen Urine Negative (Negative); Opiate Screen Urine Negative (Negative); PCP Screen Urine Negative (Negative); THC Screen Urine Negative (Negative)
[2024-02-17 08:56] LABS: Add Urine Microscopic? YES; Bacteria Urine TRACE /hpf; Bilirubin Urine Neg (Negative); Blood Urine Neg (Negative); Glucose Urine UA Norm (Normal); Ketones Urine Negative (Negative); Leukocyte Esterase Urine Trace (Negative); Nitrate Urine Negative (Negative); Protein Urine Neg (Negative); RBC Urine RARE /hpf (0-2); Squamous Epithelial Cell Urine RARE /hpf (0-5); Urine Appearance Clear (CLEAR); Urine Color Yellow (Yellow); Urobilinogen Urine Norm (Negative); WBC Urine 0-4 /hpf (0-5); pH Urine 7 (5-7)
--- NOTE | 2024-02-17 09:00 | PC.NURSE ---
DELAY OF ANTIBIOTICS DUE TO BLOOD CULTURES NEEDING TO BE DRAWN.
[2024-02-17] MEDS: SODIUM CHLORIDE 0.9% 3034.53 ML IV (09:01)
[2024-02-17 09:38] LABS: SARS Covid-2 Antigen negative (Negative)
[2024-02-17 10:16] LABS: Reflex Lactate Order REFLEX LACTIC ORDERD
[2024-02-17] MEDS: vancomycin 1,000 MG in sodium chloride 0.9% 250 ML 250 MG IV (10:17)
[2024-02-17] MEDS: piperacillin-tazobactam 3.375 GM in sodium chloride 0.9% (plus) 50 ML IV (10:18)
--- NOTE | 2024-02-17 10:39 | CT_ITS ---
WS: [id number] CT ABDOMEN PELVIS TECHNIQUE: Noncontrast CT of the abdomen and pelvis with coronal and sagittal reformatted images. CLINICAL INFORMATION: vomiting COMPARISON: 10/30/2022 DLP: 1165.[address] scans at [facility] use at least one of these dose optimization techniques: automated e xposure control; mA and/or kV adjustment per patient size (includes targeted exams where dose is matc hed to clinical indication); or iterative reconstruction. FINDINGS: Bibasilar atelectasis. Hepatomegaly with diffuse fatty infiltration. Small esophageal hiatal hernia. Mild splenomegaly. Residual contrast from studies earlier today. Small fat-containing umbilical herni a. Normal sigmoid colon. No evidence of small or large bowel obstruction. Normal appendix. Fatty atrophy of the pancreas. Noncontrast pancreas otherwise appears normal. Normal adrenal glands. Bilateral miriam al cysts largest on the RIGHT measuring 4.5 cm. No hydronephrosis in either kidney. No evidence of ab scess or fluid collection in the abdomen or pelvis. No other acute findings. CT/CT abdomen pelvis wo con [id number] IMPRESSION: 1. Hepatomegaly with diffuse fatty infiltration of the liver. 2. Mild splenomegaly measuring 12.8 cm. 3. Small esophageal hiatal hernia. 4. No hydronephrosis in either kidney. 5. Numerous bladder diverticuli, the largest measuring 5.8 x 2.9 cm with a brittni row neck along the RIGHT lateral bladder. This is separate from the UVJ. Divert iculum is similar to the prior study. 6. Bibasilar atelectasis. 7. No other acute findings.
--- NOTE | 2024-02-17 10:40 | XRR_ITS ---
PROCEDURE INFORMATION: Exam: XR Right Hand Exam date and time: 02/17/2024 10:45 AM Age: 63 years old Clinical indication: Pain; Hand; Right; Additional info: History of trauma TECHNIQUE: Imaging protocol: Radiologic exam of the right hand. Views: 1 or 2 views. COMPARISON: No relevant prior studies available. FINDINGS: Bones/joints: Normal. No acute osseous, joint, or soft tissue abnormality. Mild degenerative changes of the fingers. Soft tissues: Normal. XR/XR hand RT 2V [id number] IMPRESSION: No acute findings.
[2024-02-17 11:31] LABS: Lactic Acid level (Lactate) 1.1 mmol/L (0.5-2.2)
--- NOTE | 2024-02-17 11:32 | P.HP_ITS ---
Providers/Chief Complaint 2 Admitting Physician: Chidi Andrade MD Primary Care Provider: Liv Kumar Chief Complaint: Stroke alert History of Present Illness Lyle Palmer is a 63 year old male with history of significant developmental delay who was brought in from his residential care setting with concerns he is not acting normal. He has been weak. He had 1 episode of vomiting when coming in. There was initially concern of left facial droop, and dysarthria but patient has dysarthria at baseline. From my understanding the facial droop is gone completely away. He has had an occasional cough. He is required some oxygen in the emergency department and has a low-grade fever, but typically requires oxygen 2 L when sleeping. Caregiver reports he has loose stool at times. No abdominal pain or chest pain it has been apparent but it is difficult to tell. Patient cannot communicate his symptoms well secondary to his developmental issues. He did recently punched a wall, and sustained a laceration and sutures in his right hand several days ago. Caregivers report that he has stopped smoking, but continues to vape. His guardian is his mother but she does not care for him on a daily basis. Review of Systems 2 General: Reports: 10 or more systems reviewed and unremarkable except in HPI and below Const: Denies: fever(s) Card: Denies: chest pain Resp: Denies: dyspnea GI: Reports: nausea, vomiting and diarrhea; Denies: abdominal pain Medications/Allergies Home Medications Medication Instructions Recorded Confirmed Last Taken Type atorvastatin 40 mg tablet 40 mg PO DAILY@01/13/20 02/17/24 02/16/24 History famotidine 20 mg tablet 20 mg PO DAILY@01/13/20 02/17/24 02/17/24 History loratadine 10 mg tablet (Claritin) 10 mg PO DAILY@01/13/20 02/17/24 02/17/24 History olanzapine 20 mg tablet (Zyprexa) 20 mg PO BEDTIME 01/13/20 02/17/24 02/16/24 History sertraline 100 mg tablet 200 mg PO DAILY@01/13/20 02/17/24 02/17/24 History ibuprofen 200 mg tablet 400 mg PO Q6H PRN Pain 11/26/20 02/17/24 Unknown History umeclidinium 62.5 mcg-vilanterol 1 inh inhalation DAILY@20 11/26/20 02/17/24 02/16/24 History 25 mcg/actuation powdr for inhalation (Anoro Ellipta) albuterol sulfate 90 mcg/actuation 2 puff inhalation BID PRN 02/17/24 02/17/24 Unknown History aerosol inhaler (Ventolin HFA) Shortness Of Breath fluticasone furoate 100 1 inh inhalation DAILY 02/17/24 02/17/24 02/17/24 History mcg/actuation blister powder for inhalation (Arnuity Ellipta) olanzapine 10 mg tablet See Rx Instructions .Route .COMPLEX 02/17/24 02/17/24 02/17/24 History sulfamethoxazole 800 0.5 tab PO Q12H 02/17/24 02/17/24 02/17/24 History mg-trimethoprim 160 mg tablet Allergies Allergy/AdvReac Type Severity Reaction Status Date / Time No Known Allergies Allergy Verified 02/17/24 07:56 PFSH Acute 2 PFSH: Medical History (Updated 02/17/24 @ 11:47 by Chidi Andrade MD) Hyperlipidemia Nicotine dependence COPD (chronic obstructive pulmonary disease) GERD (gastroesophageal reflux disease) Cognitive developmental delay Social History Smoking and tobacco/nicotine status: current every day tobacco/nicotine user Other PFSH information: Supplemental PFSH Information: Family history unknown at this time. Vitals/I&O/Wt Last Vital Signs Temp 99.2 F 02/17/24 07:47 Pulse 98 02/17/24 10:15 Resp 18 02/17/24 10:15 BP 138/87 02/17/24 10:15 Pulse Ox 98 02/17/24 10:15 O2 Del Method Nasal Cannula 02/17/24 08:00 O2 Flow Rate 2 02/17/24 08:00 Weight last 48 hrs Weight 101.151 kg Physical Exam 2 Narrative: General exam is a white male, who has some upper airway noise which caregivers report is chronic, who comes awake easily but has significant visual impairment and speech impediment. HEENT: Scarring noted over cranium. Oropharynx clear, mucous membranes dry. Severe vision impairment Neck is supple no lymphadenopathy thyromegaly Cardiovascular mild tachycardia, regular, no murmur Lungs clear. Upper airway noise transmitted. Diminished breath sounds. No obvious wheezing. Abdomen is soft. Nontender. No obvious organomegaly. Obese. exam is deferred Extremities no cyanosis, edema, cap refill brisk. Right hand with sutures, dorsal surface, no evidence of infection Skin no rash Neuro no focal deficits EKG demonstrates sinus tachycardia, normal axis, right bundle branch block Data 02/17/24 07:06 02/17/24 07:06 Other Labs: PT and PTT are normal Lactic acid 4.3 with repeat of 1.3 AST and ALT are 109 and 91 respectively. Alk phos and bilirubin are normal Urinalysis essentially negative with 0-4 white blood cells per high-powered field Urine drug screen positive for benzodiazepines Respiratory panel is pending, rapid COVID-negative Chest x-ray Left lower lobe infiltrate. I reviewed this as well. CTA chest no pulmonary embolism. Bilateral lower lobe infiltrate versus atelectasis. Emphysema. I have ordered a hand x-ray and an abdominal pelvis CT. Hand x-ray shows no acute findings. Head CT no acute findings CTA head and neck no large vessel stenosis or occlusion Micro: Microbiology 02/17/24 09:54 Blood Culture - Preliminary Blood SPECIMEN COLLECTED 02/17/24 09:50 Blood Culture - Preliminary Blood SPECIMEN COLLECTED A&P Assessment and plan (1) Pneumonia: Concern of pneumonia on chest x-ray, and still concern on CT which I did review as well. Rocephin and azithromycin Sputum culture Respiratory panel Blood cultures already been drawn Qualifiers: Laterality: bilateral Lung location: lower lobe of lung Pneumonia type: due to unspecified organism Qualified Code(s): J18.9 - Pneumonia, unspecified organism (2) Hypoxia: Patient apparently uses 2 L of oxygen at night He is requiring 2 L during the day This is likely attributed to his COPD and/or pneumonia Try to wean off when not sleeping. (3) Vomiting: Patient with 1 or more episodes of vomiting on presentation Await CT abdomen and pelvis Zofran for nausea Further monitoring to see if this recurs (4) Acute encephalopathy: Patient with acute encephalopathy upon presentation This appears to have resolved Stroke workup negative but cannot completely exclude TIA Continue statin Add aspirin (5) Dehydration: Patient with significant dehydration. He has received a fluid bolus in the ER. Continue IV fluids at maintenance rate. This may explain his elevated lactate initially along with vomiting that is quickly resolved. He does not appear to be septic. (6) Diarrhea: With reported occasional diarrhea. Check C. difficile toxin if this occurs in hospital. (7) Transaminitis: May be secondary to acute illness Repeat LFTs tomorrow Await CT abdomen and pelvis If any worsening or no improvement consider abdominal ultrasound Check hepatitis panel (8) Cognitive developmental delay: From my understanding this is associated with significant behaviors requiring Zyprexa. He could be violent at times according to caregivers. Monitor closely. Plan Nicotine dependency. Encouraged abstinence. Vaping can certainly cause lung injury and worsening of COPD or COPD exacerbation. Other medical problems as outlined in past medical history Full code Lovenox will suffice for DVT prophylaxis Attestations 2 Medical Necessity Statement*: Will need less than 2 midnight stay for evaluation and treatment of pneumonia requiring minimal oxygen Diagnoses Pneumonia J18.9 Laterality: bilateral Lung location: lower lobe of lung Pneumonia type: due to unspecified organism Hypoxia R09.02 Vomiting R11.10 Acute encephalopathy G93.40 Dehydration E86.0 Diarrhea R19.7 Transaminitis R74.01 Cognitive developmental delay F81.9 Time Spent (min) 59
[2024-02-17 12:18] LABS: Lipase 9 U/L (13-60)
[2024-02-17 12:23] LABS: Hepatitis A Antibody IgM Non-Reactive (Nonreactive); Hepatitis B Core IgM Non-Reactive (Nonreactive); Hepatitis B Surface Antigen Non-Reactive (Nonreactive); Hepatitis C Virus Antibody Non-Reactive (Nonreactive)
[2024-02-17 12:30] LABS: Thyroid Stimulating Hormone 3.87 uIU/mL (0.27-4.20)
[2024-02-17 12:38] LABS: Adenovirus Not Detected (NOT DETECT); Chlamydia Pneumoniae Not Detected (NOT DETECT); Coronavirus 229E,HKU1,NL63,OC4 Not Detected (NOT DETECT); Human Metapneumovirus Not Detected (NOT DETECT); Human Rhinovirus/Enterovirus Not Detected (NOT DETECT); Influenza A Not Detected (NOT DETECT); Influenza A H1 Not Detected (NOT DETECT); Influenza A H1-2009 Not Detected (NOT DETECT); Influenza A H3 Not Detected (NOT DETECT); Influenza B Not Detected (NOT DETECT); Mycoplasma Pneumoniae Not Detected (NOT DETECT); Parainfluenza Virus Type 1 Not Detected (NOT DETECT); Parainfluenza Virus Type 2 Not Detected (NOT DETECT); Parainfluenza Virus Type 3 Not Detected (NOT DETECT); Parainfluenza Virus Type 4 Not Detected (NOT DETECT); Respiratory Syncytial Virus A Not Detected (NOT DETECT); Respiratory Syncytial Virus B Not Detected (NOT DETECT); SARS-COV-2 Not Detected (NOT DETECT)
[2024-02-17] MEDS: azithromycin 500 MG in sodium chloride 0.9% 250 ML 250 MG IV (12:46)
[2024-02-17] MEDS: sodium chloride 0.9% 1,000 ML 75 ML IV (12:46)
[2024-02-17] MEDS: cefTRIAXone 1,000 mg SDV 1000 MG IVP (12:47)
[2024-02-17] MEDS: enoxaparin 40 mg/0.4 mL Syringe SUBCUT (12:47)
[2024-02-17] MEDS: water for injection-sterile 10 ML 5 ML (13:01)
[2024-02-17] MEDS: ipratropium-albuterol 3 mL Neb INHALATION ×2 (14:36→20:14)
[2024-02-17] MEDS: OLANZapine 10 mg TABLET PO (14:46)
[2024-02-17] MEDS: nicotine 21 mg Patch 1 PATCH TRANSDERMA (18:12)
[2024-02-17] MEDS: budesonide 0.5 mg/2 mL Neb INHALATION (20:14)
[2024-02-17] MEDS: OLANZapine 10 mg TABLET 20 MG PO (20:57)
[2024-02-17] MEDS: atorvastatin 40 mg Tablet PO (20:57)
[2024-02-18] VITALS (8 sets, daily range): BP systolic 159–172; BP diastolic 88–97; PULSE 80–92; RESP 17–20; TEMP 36.6–37.2; O2SAT 91–97
[2024-02-18] MEDS: sodium chloride 0.9% 1,000 ML 75 ML IV (01:07)
[2024-02-18] MEDS: ipratropium-albuterol 3 mL Neb INHALATION ×2 (01:57→07:21)
[2024-02-18 05:14] LABS: Basophils % 0.3 %; Eosinophils # 0.2 10^3/uL (0.0-0.8); Eosinophils % 3.1 %; Hematocrit 36.4 % (37-53); Lymphocytes % 15.9 %; Mean Corpuscular HGB Conc 32.1 g/dL (30-55); Mean Corpuscular Hemoglobin 29.4 pg (27-33); Mean Corpuscular Volume 91.5 fl (82-101); Mean Platelet Volume 10.1 fL (7.4-10.4); Monocytes # 0.6 10^3/uL (0.2-0.9); Monocytes % 10.4 %; Neutrophils # 4.24 10^3/uL (1.8-7.7); Neutrophils % 70.1 %; Nucleated Red Blood Cells % 0 %; Platelet Count 181 10^3/cmm (157-399); Red Blood Count 3.98 10^6/uL (3.85-5.65); Red Cell Distribution Width 13.2 % (12.1-15.1); White Blood Count 6.05 10^3/uL (3.29-11.43)
[2024-02-18 05:39] LABS: Alanine Aminotransferase 150 U/L (0-41); Albumin Level 3.9 g/dL (3.5-5.2); Alkaline Phosphatase 107 U/L (40-130); Anion Gap 14.1 (5-19); Aspartate Amino Transferase 129 U/L (0-40); Blood Urea Nitrogen 7 mg/dL (8-23); Calcium 8.2 mg/dL (8.5-10.5); Carbon Dioxide 24 mmol/L (22-29); Chloride 111 mmol/L (98-107); Creatinine Clr Calc Pharmacy 104.3234; Globulin 2.8 g/dL (1.3-4.6); Glomerular Filtration Rate 113.2 mL/min (90-130); Glucose 108 mg/dL (65-115); Osmolality Calculated 299 mOsm/kg (285-295); Potassium 4.1 mmol/L (3.5-5.1); Sodium 145 mmol/L (136-145); Total Bilirubin 0.4 mg/dL (0.15-1.2); Total Protein 6.7 g/dL (6.6-8.7)
[2024-02-18] MEDS: budesonide 0.5 mg/2 mL Neb INHALATION (07:21)
--- NOTE | 2024-02-18 09:48 | PM.DCS ---
Discharge Providers Date of Admission: 02/17/24 11:28 Date of Discharge: February 18, 2024 Attending Provider at Admission: Chidi Andrade MD Attending Provider at Discharge: Chidi Andrade MD Primary Care Provider: Liv Kumar Diagnoses at Discharge Discharge Diagnosis (1) Pneumonia: Status: Acute Qualifiers: Laterality: bilateral Lung location: lower lobe of lung Pneumonia type: due to unspecified organism Qualified Code(s): J18.9 - Pneumonia, unspecified organism (2) Hypoxia: Status: Acute (3) Vomiting: Status: Acute (4) Acute encephalopathy: Status: Acute (5) Dehydration: Status: Acute (6) Diarrhea: Status: Acute (7) Transaminitis: Status: Acute (8) Cognitive developmental delay: Status: Acute Reason for Visit Reason for Visit: Stroke alert Hospital Course Hospital Course Lyle is a 63-year-old white male who presented to the emergency department with initial concern of right facial droop and not acting right. This had resolved quickly either right before or in the emergency department. CT head and CTA head and neck were negative. He was noted to need oxygen, and have pneumonia on the left side. The CT abdomen pelvis was also done secondary to reported vomiting, and this showed only fatty liver. He was given aspirin, statin was continued, breathing treatments, and IV antibiotics for pneumonia. Respiratory panel was negative. By 02/17 he was not needing oxygen during the day. He always uses 2 L of oxygen at night. He was afebrile, white blood cell count normal, no vomiting occurred, and he had no neurologic deficits. It was thought he could be discharged home. It was thought the event he had was unlikely to be a stroke, and the findings of facial droop or subtle and not confirmed. He did not have any weakness. However secondary to his significant risk factors, and the initial concern a TIA could not be completely ruled out so he will discharge on aspirin 81 mg daily. He will also finish up an antibiotic course, follow-up with his primary care provider. Specific attention to repeating liver tests on follow-up, and determine eating if any further evaluation is needed. Hepatitis panel was negative. Further consideration could be given to gallbladder ultrasound as outpatient. He should stop vaping, as this can cause significant lung injury. Physical Exam Narrative: General exam no distress Neck is supple Cardiovascular regular rate and rhythm Lungs clear but with diminished breath sounds at the bases. Some upper airway noises noted. Abdomen is soft Extremities no sinus clubbing or edema. Discharge Data Studies Completed and Pending Completed Studies During Hospitalization Category Date Time Status CT abdomen pelvis wo con [id number] Stat Cat Scan 02/17/24 10:[address] angio headneck* [id number] Stat Cat Scan 02/17/24 07:[address] head thrombolytic [id number] Stat Cat Scan 02/17/24 07:22 Completed CTA chest [CT angio chest PE protcl [id number]] Stat Cat Scan 02/17/24 08:15 Completed XR chest 1V portable [id number] Stat Exams 02/17/24 07:22 Completed XR hand RT 2V [id number] Stat Exams 02/17/24 10:40 Completed Pending at discharge Category Date Time Status Blood Culture Stat Lab 02/17/24 09:54 Results Sputum Culture and Gram Stain Routine Lab 02/17/24 11:56 Uncollected Radiology Impressions Chest X-Ray 02/17/24 07:22 IMPRESSION: Possible mild opacity at the left lung base. Head CT 02/17/24 07:22 IMPRESSION: No acute intracranial abnormality. ASSESSMENT: ASPECTS ([place] Stroke Program Early CT Score) is 10. . Head/Neck CTA 02/17/24 07:22 IMPRESSION: No large vessel stenosis or occlusion. IMPRESSION: No stenosis or occlusion. REFERENCES: NASCET CRITERIA. The degree of stenosis in the cervical segment of the internal carotid artery is based on NASCET criteria. Normal is no stenosis. Mild is less than 50% stenosis. Moderate is 50-69% stenosis. Severe is 70% to 99% stenosis. Total occlusion is no detectable patent lumen. Chest CTA 02/17/24 08:15 IMPRESSION: 1. No evidence of pulmonary embolus. 2. Bibasilar atelectasis. 3. Moderate esophageal hernia. 4. Hepatomegaly. Abdomen/Pelvis CT 02/17/24 10:39 IMPRESSION: 1. Hepatomegaly with diffuse fatty infiltration of the liver. 2. Mild splenomegaly measuring 12.8 cm. 3. Small esophageal hiatal hernia. 4. No hydronephrosis in either kidney. 5. Numerous bladder diverticuli, the largest measuring 5.8 x 2.9 cm with a narrow neck along the RIGHT lateral bladder. This is separate from the UVJ. Diverticulum is similar to the prior study. 6. Bibasilar atelectasis. 7. No other acute findings. Hand X-Ray 02/17/24 10:40 IMPRESSION: No acute findings. Laboratory Results WBC 6.05 10^3/uL (3.29-11.43) 02/18/24 04:51 RBC 3.98 10^6/uL (3.85-5.65) 02/18/24 04:51 Hgb 11.70 g/dL (11.27-16.99) 02/18/24 04:51 Hct 36.4 % (37-53) L 02/18/24 04:51 MCV 91.5 fl (82-101) 02/18/24 04:51 MCH 29.4 pg (27-33) 02/18/24 04:51 MCHC 32.1 g/dL (30-55) 02/18/24 04:51 RDW 13.2 % (12.1-15.1) 02/18/24 04:51 Plt Count 181 10^3/cmm (157-399) 02/18/24 04:51 MPV 10.1 fL (7.4-10.4) 02/18/24 04:51 Neut % (Auto) 70.1 % 02/18/24 04:51 Lymph % (Auto) 15.9 % 02/18/24 04:51 [place] % (Auto) 10.4 % 02/18/24 04:51 Eos % (Auto) 3.1 % 02/18/24 04:51 Baso % (Auto) 0.3 % 02/18/24 04:51 Neut # (Auto) 4.24 10^3/uL (1.8-7.7) 02/18/24 04:51 Lymph # (Auto) 1.0 10^3/uL (0.8-4.8) 02/18/24 04:51 [place] # (Auto) 0.6 10^3/uL (0.2-0.9) 02/18/24 04:51 Eos # (Auto) 0.2 10^3/uL (0.0-0.8) 02/18/24 04:51 Baso # (Auto) 0.0 10^3/uL (0.0-0.1) 02/18/24 04:51 Nucleated RBC % (auto) 0 % 02/18/24 04:51 Nucleated RBCs # 0.0 /100WBC 02/18/24 04:51 PT 14.20 SECONDS (12.1-14.9) 02/17/24 07:06 INR 1.06 (0.8-1.2) 02/17/24 07:06 APTT 31.6 SECONDS (23.9-36.7) 02/17/24 07:06 Sodium 145 mmol/L (136-145) 02/18/24 04:51 Potassium 4.1 mmol/L (3.5-5.1) 02/18/24 04:51 Chloride 111 mmol/L (98-107) H 02/18/24 04:51 Carbon Dioxide 24 mmol/L (22-29) 02/18/24 04:51 Anion Gap 14.1 (5-19) 02/18/24 04:51 BUN 7 mg/dL (8-23) L 02/18/24 04:51 Creatinine 0.7 mg/dL (0.7-1.2) 02/18/24 04:51 GFR Calculation 113.2 mL/min (90-130) 02/18/24 04:51 Glucose 108 mg/dL (65-115) 02/18/24 04:51 Calculated Osmolality 299 mOsm/kg (285-295) H 02/18/24 04:51 Lactic Acid 4.3 mmol/L (0.5-2.2) H* 02/17/24 07:06 Lactic Acid (Sepsis) 1.1 mmol/L (0.5-2.2) 02/17/24 10:55 Calcium 8.2 mg/dL (8.5-10.5) L 02/18/24 04:51 Magnesium 2.0 mg/dL (1.7-2.3) 02/18/24 04:51 Total Bilirubin 0.4 mg/dL (0.15-1.2) 02/18/24 04:51 AST 129 U/L (0-40) H 02/18/24 04:51 ALT 150 U/L (0-41) H 02/18/24 04:51 Alkaline Phosphatase 107 U/L (40-130) 02/18/24 04:51 NT-Pro-B Natriuret Pep 73 pg/mL (0-125) 02/17/24 07:06 Total Protein 6.7 g/dL (6.6-8.7) 02/18/24 04:51 Albumin 3.9 g/dL (3.5-5.2) 02/18/24 04:51 Globulin 2.8 g/dL (1.3-4.6) 02/18/24 04:51 Lipase 9 U/L (13-60) L 02/17/24 07:06 TSH 3.87 uIU/mL (0.27-4.20) 02/17/24 07:06 Urine Color Yellow (Yellow) 02/17/24 08:30 Urine Appearance Clear (CLEAR) 02/17/24 08:30 Urine pH 7 (5-7) 02/17/24 08:30 Ur Specific [place] 1.000 (1.005-1.030) L 02/17/24 08:30 Urine Protein Neg (Negative) 02/17/24 08:30 Urine Glucose (UA) Norm (Normal) 02/17/24 08:30 Urine Ketones Negative (Negative) 02/17/24 08:30 Urine Blood Neg (Negative) 02/17/24 08:30 Urine Nitrate Negative (Negative) 02/17/24 08:30 Urine Bilirubin Neg (Negative) 02/17/24 08:30 Urine Urobilinogen Norm mg/dL (Negative) 02/17/24 08:30 Ur Leukocyte Esterase Trace (Negative) H 02/17/24 08:30 Urine RBC Rare /hpf (0-2) 02/17/24 08:30 Urine WBC 0-4 /hpf (0-5) H 02/17/24 08:30 Ur Squamous Epith Cells Rare /hpf (0-5) 02/17/24 08:30 Amorphous Sediment Not Reportable 02/17/24 08:30 Urine Bacteria Trace /hpf (NONE) 02/17/24 08:30 Urine Opiates Screen Negative ng/mL (Negative) 02/17/24 08:30 Ur Barbiturates Screen Negative ng/mL (Negative) 02/17/24 08:30 Ur Phencyclidine Scrn Negative ng/mL (Negative) 02/17/24 08:30 Ur Amphetamines Screen Negative ng/mL (Negative) 02/17/24 08:30 U Benzodiazepines Scrn Positive ng/mL (Negative) H 02/17/24 08:30 Urine Cocaine Screen Negative ng/mL (Negative) 02/17/24 08:30 U Marijuana (THC) Screen Negative ng/mL (Negative) 02/17/24 08:30 Adenovirus (PCR) Not detected (NOT DETECT) 02/17/24 10:40 C. pneumoniae DNA (PCR) Not detected (NOT DETECT) 02/17/24 10:40 Coronavirus 229E (PCR) Not detected (NOT DETECT) 02/17/24 10:40 Hepatitis A IgM Ab Non-reactive (Nonreactive) 02/17/24 07:06 Hep Bs Antigen Non-reactive (Nonreactive) 02/17/24 07:06 Hep B Core IgM Ab Non-reactive (Nonreactive) 02/17/24 07:06 Hepatitis C Antibody Non-reactive (Nonreactive) 02/17/24 07:06 Human Metapneumovir PCR Not detected (NOT DETECT) 02/17/24 10:40 Influenza A (H1) PCR Not detected (NOT DETECT) 02/17/24 10:40 Influ A (H1/09) PCR Not detected (NOT DETECT) 02/17/24 10:40 Influenza A (H3) PCR Not detected (NOT DETECT) 02/17/24 10:40 Influenza Type A (PCR) Not detected (NOT DETECT) 02/17/24 10:40 Influenza Type B (PCR) Not detected (NOT DETECT) 02/17/24 10:40 M. pneumoniae (PCR) Not detected (NOT DETECT) 02/17/24 10:40 Parainfluenza 1 (PCR) Not detected (NOT DETECT) 02/17/24 10:40 Parainfluenza 2 (PCR) Not detected (NOT DETECT) 02/17/24 10:40 Parainfluenza 3 (PCR) Not detected (NOT DETECT) 02/17/24 10:40 Parainfluenza 4 (PCR) Not detected (NOT DETECT) 02/17/24 10:40 RSV Type A (PCR) Not detected (NOT DETECT) 02/17/24 10:40 RSV Type B (PCR) Not detected (NOT DETECT) 02/17/24 10:40 Entero/Rhino (PCR) Not detected (NOT DETECT) 02/17/24 10:40 SARS-CoV-2 (PCR) Not detected (NOT DETECT) 02/17/24 10:40 SARS-CoV-2 Ag (Rapid) negative (Negative) 02/17/24 08:48 Vitals Last Vital Signs Temp 98.9 F 02/18/24 07:53 Pulse 82 02/18/24 07:53 Resp 18 02/18/24 07:53 BP 159/97 02/18/24 07:53 Pulse Ox 97 02/18/24 07:53 O2 Del Method Room Air 02/18/24 07:53 O2 Flow Rate 2 02/18/24 07:23 Discharge Plan Discharge Patient Disposition: Home Condition: Stable Prescriptions: New aspirin 81 mg Tablet,Delayed Release (Dr/Ec) 81 mg PO DAILY Qty: 30 0RF Zithromax 500 mg tablet 500 mg PO DAILY 1 Days Qty: 1 0RF Rx Instructions: start on day 2 of therapy cefdinir 300 mg capsule 300 mg PO BID Qty: 14 0RF Continued atorvastatin 40 mg Tablet 40 mg PO DAILY@20 famotidine 20 mg Tablet 20 mg PO DAILY@08 sertraline 100 mg Tablet 200 mg PO DAILY@08 olanzapine [Zyprexa] 20 mg Tablet 20 mg PO BEDTIME loratadine [Claritin] 10 mg Tablet 10 mg PO DAILY@08 Anoro Ellipta 62.5-25 mcg/actuation Blister With Device 1 inh INHALATION DAILY@20 olanzapine 10 mg tablet See Rx Instructions .ROUTE .COMPLEX Rx Instructions: TAKE 1 TABLET BY MOUTH AT 8AM AND 2PM. Ventolin HFA 90 mcg/actuation HFA aerosol inhaler 2 puff INHALATION BID PRN (Reason: Shortness Of Breath) Arnuity Ellipta 100 mcg/actuation blister with device 1 inh INHALATION DAILY Discontinued ibuprofen 200 mg Tablet 400 mg PO Q6H PRN (Reason: Pain) sulfamethoxazole-trimethoprim 800-160 mg tablet 0.5 tab PO Q12H Discharge Orders: Discharge Order (Routine); Ordered 02/18/24 Ordered By: Chidi Andrade Referrals: Liv Kumar PA [Primary Care Provider] - 4-7 days Discharge Diet: Usual diet Discharge Activity: Resume usual activity Patient Instructions: Opioid Safety, Pain Management Activity Restrictions/Additional Instructions: Take all medicine as prescribed Return for any concerns Liver function tests were high, likely attributed to fatty liver. Primary care provider can follow-up on liver tests as an outpatient and consider gallbladder ultrasound if still elevated. CT scan did not show significant gallbladder disease. Stop vaping. This can induce lung injury. Consider nicotine patch if needed. Discharge Attestations Time Spent in Discharge Care*: greater than 30 min Quality Metrics Clinical Quality Measures [ No reported AMI, CVA or VTE this stay] Coding Level of Care Code 14215 Total time (in minutes) for Discharge: 36 Diagnoses Pneumonia J18.9 Laterality: bilateral Lung location: lower lobe of lung Pneumonia type: due to unspecified organism Hypoxia R09.02 Vomiting R11.10 Acute encephalopathy G93.40 Dehydration E86.0 Diarrhea R19.7 Transaminitis R74.01 Cognitive developmental delay F81.9
[2024-02-18] MEDS: famotidine 20 mg Tablet PO (10:28)
[2024-02-18] MEDS: sertraline 100 mg Tablet 200 MG PO (10:29)
[2024-02-18] MEDS: loratadine 10 mg Tablet PO (10:29)
[2024-02-18] MEDS: nicotine 21 mg Patch 1 PATCH TRANSDERMA (10:29)
[2024-02-18] MEDS: aspirin 81 mg EC Tablet PO (10:29)
[2024-02-18] MEDS: OLANZapine 10 mg TABLET PO (10:33)
== END 2024-02-18 12:00 | disposition home or self-care (01) ==
LOC: ER 10:21 → MEDSURG 11:28
PROVIDERS: Admitting Provider Internal Medicine; Emergency Provider Emergency Medicine; PCP Physician Assistant; Visit Provider Internal Medicine
DX: J18.9 Pneumonia, unspecified organism (principal); R09.02 Hypoxemia; R11.10 Vomiting, unspecified; G93.40 Encephalopathy, unspecified; E86.0 Dehydration; R19.7 Diarrhea, unspecified; R74.01 Elevation of levels of liver transaminase levels; F81.9 Developmental disorder of scholastic skills, unspecified; K76.0 Fatty (change of) liver, not elsewhere classified; E78.5 Hyperlipidemia, unspecified; J44.9 Chronic obstructive pulmonary disease, unspecified
CPT/HCPCS: 36415; 70450; 70496; 70498; 71045; 71275; 73120; 74176; 80053; 80074; 80306; 81001; 83605; 83690; 83735; 83880; 84443; 85025; 85610; 85730; 87040; 87426; 87486; 87581; 87633; 93005; 94640; 96365; 96367; 96372; 99285; G0378; J0456; J0696; J1650; J2543; J3370; J7030; J7050; J7626; Q9967

== ENCOUNTER → 2024-03-02 10:16 | Outpatient (BNVA) | payer MEDICARE, MEDICAID, SELFPAY | PROVIDERS: PCP Physician Assistant; Visit Provider Podiatrist Foot & Ankle Surgery | DX: B35.1 Tinea unguium (principal); R60.9 Edema, unspecified; I87.2 Venous insufficiency (chronic) (peripheral); F81.9 Developmental disorder of scholastic skills, unspecified; I73.9 Peripheral vascular disease, unspecified | CPT/HCPCS: 11721 ==

== ENCOUNTER 2024-04-09 19:39 | Emergency (ER) | payer MEDICARE, MEDICAID, SELFPAY ==
[2024-04-09 19:43] VITALS: BP 178/87; PULSE 69; RESP 22; TEMP 36.6; O2SAT 94; BMI 31.3
--- NOTE | 2024-04-09 19:54 | CTR_ITS ---
PROCEDURE INFORMATION: Exam: CT Head Without Contrast Exam date and time: 04/09/2024 8:05 PM Age: 63 years old Clinical indication: Injury or trauma; Fall; Work related; Blunt trauma (contusions or hematomas); Patient HX: Patient fell in bathroom with head strike. Small lac to left eyebrow. TECHNIQUE: Imaging protocol: Computed tomography of the head without contrast. Radiation optimization: All CT scans at this facility use at least one of these dose optimization techniques: automated exposure control; mA and/or kV adjustment per patient size (includes targeted exams where dose is matched to clinical indication); or iterative reconstruction. COMPARISON: CT angio headneck* [id number] 02/17/2024 7:28 AM RADIATION DOSE METRICS: Total DLP (mGy-cm): 959.38 FINDINGS: Brain: Normal. No hemorrhage. Unremarkable white matter. No mass effect. Cerebral ventricles: No ventriculomegaly. Paranasal sinuses: Visualized sinuses are unremarkable. No fluid levels. Mastoid air cells: Visualized mastoid air cells are well aerated. Bones: Unremarkable. No acute fracture. Soft tissues: Unremarkable. CT/CT head wo con* [id number] IMPRESSION: No acute intracranial abnormality.
--- NOTE | 2024-04-09 19:54 | CTR_ITS ---
PROCEDURE INFORMATION: Exam: CT Cervical Spine Without Contrast Exam date and time: 04/09/2024 8:08 PM Age: 63 years old Clinical indication: Injury or trauma; Fall; Blunt trauma; Patient HX: Patient fell in bathroom with head strike. Small lac to left eyebrow. TECHNIQUE: Imaging protocol: Computed tomography of the cervical spine without contrast. Radiation optimization: All CT scans at this facility use at least one of these dose optimization techniques: automated exposure control; mA and/or kV adjustment per patient size (includes targeted exams where dose is matched to clinical indication); or iterative reconstruction. COMPARISON: CT cervical spin wo con* [id number] 10/30/2022 8:46 PM RADIATION DOSE METRICS: Total DLP (mGy-cm): 612.87 FINDINGS: Bones/joints: Multilevel degenerative disc space narrowing throughout the spine. C2-C3: No significant disc bulge or herniation. No severe spinal canal stenosis. No significant neural foraminal narrowing. C3-C4: No significant disc bulge or herniation. No severe spinal canal stenosis. No significant neural foraminal narrowing. C4-C5: No significant disc bulge or herniation. No severe spinal canal stenosis. No significant neural foraminal narrowing. C5-C6: No significant disc bulge or herniation. No severe spinal canal stenosis. No significant neural foraminal narrowing. C6-C7: No significant disc bulge or herniation. No severe spinal canal stenosis. No significant neural foraminal narrowing. C7-T1: No significant disc bulge or herniation. No severe spinal canal stenosis. No significant neural foraminal narrowing. Lungs: Lung apices are normal. Soft tissues: Unremarkable. CT/CT cervical spin wo con* [id number] IMPRESSION: Negative for fracture or dislocation
--- NOTE | 2024-04-09 19:54 | ED_ITS ---
HPI - Head Injury General: Chief complaint: Head Injury Stated complaint: Fell Head Injury Time Seen by Provider: 04/09/24 19:52 Source: patient Mode of arrival: ambulatory Limitations: no limitations History of Present Illness: 63-year-old male states that he tripped and fell in the bathroom just prior to arrival and struck his head on the toilet seat does have a superficial laceration to left forehead he states he has some headache and neck pain denies any other injuries from the fall he rates his pain a 2 out of 10 currently denies any vomiting Associated symptoms: Deny nausea, neck pain or vomiting Related Data Home Medications Medication Instructions Recorded Confirmed atorvastatin 40 mg tablet 40 mg PO DAILY@01/13/20 03/02/24 famotidine 20 mg tablet 20 mg PO DAILY@01/13/20 03/02/24 loratadine 10 mg tablet (Claritin) 10 mg PO DAILY@01/13/20 03/02/24 olanzapine 20 mg tablet (Zyprexa) 20 mg PO BEDTIME 01/13/20 03/02/24 sertraline 100 mg tablet 200 mg PO DAILY@01/13/20 03/02/24 umeclidinium 62.5 mcg-vilanterol 1 inh inhalation DAILY@11/26/20 03/02/24 25 mcg/actuation powdr for inhalation (Anoro Ellipta) albuterol sulfate 90 mcg/actuation 2 puff inhalation BID PRN 02/17/24 03/02/24 aerosol inhaler (Ventolin HFA) Shortness Of Breath fluticasone furoate 100 1 inh inhalation DAILY 02/17/24 03/02/24 mcg/actuation blister powder for inhalation (Arnuity Ellipta) olanzapine 10 mg tablet See Rx Instructions .Route .COMPLEX 02/17/24 03/02/24 Previous Rx's Medication Instructions Recorded aspirin 81 mg tablet,delayed 81 mg PO DAILY #30 tabs 02/18/24 release cefdinir 300 mg capsule 300 mg PO BID #14 caps 02/18/24 Allergies Allergy/AdvReac Type Severity Reaction Status Date / Time No Known Allergies Allergy Verified 04/09/24 19:48 Review of Systems Const: Denies: fever(s), chills, body aches or change in appetite Eyes: Denies: blurry vision or eye discomfort ENMT: Denies: throat pain or dental pain Card: Denies: chest pain Resp: Denies: dyspnea GI: Denies: abdominal pain, nausea, vomiting or diarrhea Musc: Denies: neck pain or back pain Skin/Breast: Denies: rash Neuro: Reports: headache(s) PFSH ED PFSH: Medical History Hyperlipidemia Nicotine dependence COPD (chronic obstructive pulmonary disease) GERD (gastroesophageal reflux disease) Cognitive developmental delay Social History Smoking and tobacco/nicotine status: never used tobacco/nicotine Physical Exam Const: COMMON NORMALS: no acute distress, patient oriented x3 and healthy appearing HENMT: COMMON NORMALS: normocephalic HEAD & SCALP: normocephalic OTHER: Superficial laceration along with hematoma to left forehead Eye: COMMON NORMALS: Equal, round and reactive pupils present and EOMs intact bilaterally PUPIL: Yes Equal, round and reactive pupils present Neck/C-Spine: COMMON NORMALS: full ROM and supple Chest: COMMONS NORMALS: normal inspection of the chest Resp: COMMON NORMALS: normal respiratory effort, No retractions, No use of accessory muscles and clear to auscultation bilaterally AUSCULTATION: clear to auscultation bilaterally Cardio: COMMON NORMALS: regular rate, regular rhythm and No murmurs present (Cardio) RATE: regular rate RHYTHM: regular rhythm GI: COMMON NORMALS: Normal to inspection, nondistended, normoactive bowel sounds present, Soft to palpation, non-tender and no masses PALPATION: Yes Soft to palpation Extremity: COMMON NORMALS: normal to inspection and full ROM Neuro: COMMON NORMALS: patient oriented x3, moves all extremities and no focal motor deficits Psych: COMMON NORMALS: mental status grossly normal, Normal thought process present and cooperative THOUGHT PROCESS: Normal thought process present Skin: COMMON NORMALS: no rashes or lesions noted and no wounds GENERAL SKIN EXAM: no rashes or lesions noted Course Vital Signs: Vital signs: Vital Signs Temperature 97.8 F 04/09/24 19:43 Pulse Rate 69 04/09/24 19:43 Respiratory Rate 22 H 04/09/24 19:43 Blood Pressure 178/87 04/09/24 19:43 Pulse Oximetry 94 04/09/24 19:43 Oxygen Delivery Me thod Room Air 04/09/24 19:43 MDM - Head Injury Medcial Decision Making Patient presents for closed head injury after a fall is a mild laceration does not require repair is very superficial in nature. Imaging here is all normal he stable for discharge follow-up PCP return if worsening. Medical Records I reviewed the patient's medical records. Lab Data Radiology Impressions Cervical Spine CT 04/09/24 19:54 IMPRESSION: Negative for fracture or dislocation Head CT 04/09/24 19:54 IMPRESSION: No acute intracranial abnormality. All radiology interpretation(s) finalized by discharge Discharge Plan Discharge Patient Disposition: Home Clinical Impression: Closed head injury Qualifiers: Encounter type: initial encounter Qualified Code(s): S09.90XA - Unspecified injury of head, initial encounter Condition: Stable Prescriptions: No Action atorvastatin 40 mg Tablet 40 mg PO DAILY@20 famotidine 20 mg Tablet 20 mg PO DAILY@08 sertraline 100 mg Tablet 200 mg PO DAILY@08 olanzapine [Zyprexa] 20 mg Tablet 20 mg PO BEDTIME loratadine [Claritin] 10 mg Tablet 10 mg PO DAILY@08 Anoro Ellipta 62.5-25 mcg/actuation Blister With Device 1 inh INHALATION DAILY@20 olanzapine 10 mg tablet See Rx Instructions .ROUTE .COMPLEX Rx Instructions: TAKE 1 TABLET BY MOUTH AT 8AM AND 2PM. 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
[2024-04-09 21:37] VITALS: BP 171/111; PULSE 63; O2SAT 99
== END 2024-04-09 21:27 | disposition home or self-care (01) ==
PROVIDERS: Emergency Provider Emergency Medicine; PCP Physician Assistant
DX: S01.81XA Laceration without foreign body of other part of head, initial encounter (principal); Z79.82 Long term (current) use of aspirin; E78.5 Hyperlipidemia, unspecified; J44.9 Chronic obstructive pulmonary disease, unspecified; W01.198A Fall on same level from slipping, tripping and stumbling with subsequent striking against other object, initial encounter
CPT/HCPCS: 70450; 72125; 99284

== ENCOUNTER 2024-04-28 19:33 | Emergency (ER) | payer MEDICARE, MEDICAID, SELFPAY ==
[2024-04-28 19:43] VITALS: BP 154/97; PULSE 78; RESP 18; TEMP 36.4; O2SAT 97
--- NOTE | 2024-04-28 19:47 | CTR_ITS ---
PROCEDURE INFORMATION: Exam: CT Head Without Contrast Exam date and time: 04/28/2024 8:00 PM Age: 64 years old Clinical indication: Injury or trauma; Fall; Other: Pain TECHNIQUE: Imaging protocol: Computed tomography of the head without contrast. Radiation optimization: All CT scans at this facility use at least one of these dose optimization techniques: automated exposure control; mA and/or kV adjustment per patient size (includes targeted exams where dose is matched to clinical indication); or iterative reconstruction. COMPARISON: CT head wo con* [id number] 04/09/2024 8:05 PM RADIATION DOSE METRICS: Total DLP (mGy-cm): 692 FINDINGS: Brain: No intracranial hemorrhage. There is global parenchymal volume loss. Periventricular white matter hypoattenuation is nonspecific but most likely due to small vessel disease. No evidence of acute territorial infarct or cerebral edema. No mass effect or midline shift. Cerebral ventricles: Prominent ventricles likely secondary to volume loss. Paranasal sinuses: Visualized paranasal sinuses are clear. Mastoid air cells: Nonspecific small left mastoid effusion. The right mastoid air cells are unremarkable. Bones: The calvarium is intact. Stable right parietal peripheral osteoma. Soft tissues: Mild periorbital and frontal soft tissue swelling. Small left anterior cheek/malar epidermal inclusion cyst. Other findings: There is cerumen within bilateral external acoustic canals. CT/CT head wo con* [id number] IMPRESSION: 1. No acute intracranial findings. 2. Nonspecific small left mastoid effusion.
--- NOTE | 2024-04-28 21:07 | W.ED.FALL ---
HPI - Fall General: Chief Complaint: Fall Stated Complaint: head injury Time Seen by Provider: 04/28/24 21:02 Source: patient and family Mode of arrival: wheelchair Limitations: other (baseline cognitive delay/TBI) History of Present Illness: Patient is a 64-year-old male presents to ED today for evaluation following a head injury. He was reportedly sent here from the outlying clinic. Patient states he was trying to get his wallet in his pocket when he accidentally tripped and fell and struck the right side of his head. No known LOC. It does not appear patient is on anticoagulation. Sustained a minor abrasion to his right lower leg but is ambulatory without difficulty or assistance. Patient is accompanied by another male individual whom reportedly knows him. No changes from mental baseline noted. MD complaint: fall Onset (ago): hour(s) Fall from: standing Fall witnessed: yes, by family Place fall occurred: home Loss of consciousness: None Prolonged down time: no Symptoms prior to fall: none Context: tripped/slipped Location of injury: head and face Severity: mild Associated symptoms-after fall: Reports no associated symptoms; Denies headache(s) or neck pain Related Data Home Medications Medication Instructions Recorded Confirmed atorvastatin 40 mg tablet 40 mg PO DAILY@01/13/20 04/28/24 famotidine 20 mg tablet 20 mg PO DAILY@01/13/20 04/28/24 loratadine 10 mg tablet (Claritin) 10 mg PO DAILY@01/13/20 04/28/24 olanzapine 20 mg tablet (Zyprexa) 20 mg PO BEDTIME 01/13/20 04/28/24 sertraline 100 mg tablet 200 mg PO DAILY@01/13/20 04/28/24 umeclidinium 62.5 mcg-vilanterol 1 inh inhalation DAILY@11/26/20 04/28/24 25 mcg/actuation powdr for inhalation (Anoro Ellipta) albuterol sulfate 90 mcg/actuation 2 puff inhalation BID PRN 02/17/24 04/28/24 aerosol inhaler (Ventolin HFA) Shortness Of Breath fluticasone furoate 100 1 inh inhalation DAILY 02/17/24 04/28/24 mcg/actuation blister powder for inhalation (Arnuity Ellipta) olanzapine 10 mg tablet See Rx Instructions .Route .COMPLEX 02/17/24 04/28/24 Previous Rx's Medication Instructions Recorded aspirin 81 mg tablet,delayed 81 mg PO DAILY #30 tabs 02/18/24 release cefdinir 300 mg capsule 300 mg PO BID #14 caps 02/18/24 Allergies Allergy/AdvReac Type Severity Reaction Status Date / Time No Known Allergies Allergy Verified 04/28/24 19:50 Review of Systems Eyes: Denies: change in vision GI: Denies: nausea or vomiting Musc: Denies: neck pain, back pain, extremity pain or joint pain Neuro: Reports: other (at mental baseline); Denies: headache(s), behavioral changes or seizure-like activity PFS ED PFSH: Medical History Hyperlipidemia Nicotine dependence COPD (chronic obstructive pulmonary disease) GERD (gastroesophageal reflux disease) Cognitive developmental delay Social History Smoking and tobacco/nicotine status: current some day tobacco/nicotine user Physical Exam Const: COMMON NORMALS: no acute distress, alert and well nourished GENERAL APPEARANCE: cooperative OTHER: chronic baseline cognitive delays HENMT: COMMON NORMALS: normocephalic, TM's normal bilaterally and Normal external nose present HEAD & SCALP: normocephalic HEAD IMAGES: 1. small abrasion FACE & SINUS: normal facial exam NOSE: Normal external nose present TYMPANIC MEMBRANE: TM's normal bilaterally Neck/C-Spine: COMMON NORMALS: full ROM CERVICAL SPINE: Yes cervical ROM normal, No pain with cervical ROM and No Cervical spine tenderness Neuro: PRABHAKAR COMA SCALE: document GCS findings Cascade coma scale eye opening: Spontaneous Cascade coma scale verbal response: Orientated Cascade coma scale motor response: Obey commands Cascade coma scale total score: 15 COMMON NORMALS: moves all extremities, no focal motor deficits, no sensory deficits noted and gait normal SENSORIUM/ORIENTATION: Yes alert Course Vital Signs: Vital signs: Vital Signs Temperature 97.6 F 04/28/24 19:43 Pulse Rate 78 04/28/24 19:43 Respiratory Rate 18 04/28/24 19:43 Blood Pressure 154/97 04/28/24 19:43 Pulse Oximetry 97 04/28/24 19:43 MDM - Fall Medical Decision Making CT head negative. Patient will be allowed discharge with return precautions. Lab Data Radiology Impressions Head CT 04/28/24 19:47 IMPRESSION: 1. No acute intracranial findings. 2. Nonspecific small left mastoid effusion. All radiology interpretation(s) finalized by discharge Discharge Plan Discharge Patient Disposition: Home Clinical Impression: Minor closed head injury Condition: Stable Prescriptions: No Action atorvastatin 40 mg Tablet 40 mg PO DAILY@20 famotidine 20 mg Tablet 20 mg PO DAILY@08 sertraline 100 mg Tablet 200 mg PO DAILY@08 olanzapine [Zyprexa] 20 mg Tablet 20 mg PO BEDTIME loratadine [Claritin] 10 mg Tablet 10 mg PO DAILY@08 Anoro Ellipta 62.5-25 mcg/actuation Blister With Device 1 inh INHALATION DAILY@20 olanzapine 10 mg tablet See Rx Instructions .ROUTE .COMPLEX Rx Instructions: TAKE 1 TABLET BY MOUTH AT 8AM AND 2PM. Ventolin HFA 90 mcg/actuation HFA aerosol inhaler 2 puff INHALATION BID PRN (Reason: Shortness Of Breath) Arnuity Ellipta 100 mcg/actuation blister with device 1 inh INHALATION DAILY aspirin 81 mg Tablet,Delayed Release (Dr/Ec) 81 mg PO DAILY Qty: 30 0RF cefdinir 300 mg capsule 300 mg PO BID Qty: 14 0RF Discharge Orders: Discharge ED (Routine); Ordered 04/28/24 Ordered By: Carlota Krishnan Referrals: Liv Kumar PA [Primary Care Provider] - Activity Restrictions/Additional Instructions: We discussed, his head CT is unremarkable. He may return to the emergency department for complaints of severe headache, altered mental status, repetitive episodes of vomiting, severe tiredness or lethargy, or any other concerns you may have. 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
[2024-04-28 21:22] VITALS: BP 169/102; PULSE 71; O2SAT 93
== END 2024-04-28 21:25 | disposition home or self-care (01) ==
PROVIDERS: Emergency Provider Physician Assistant; PCP Physician Assistant
DX: S00.81XA Abrasion of other part of head, initial encounter (principal); Z79.82 Long term (current) use of aspirin; Z72.0 Tobacco use; J44.9 Chronic obstructive pulmonary disease, unspecified; W01.0XXA Fall on same level from slipping, tripping and stumbling without subsequent striking against object, initial encounter
CPT/HCPCS: 70450; 99284

== ENCOUNTER → 2024-05-04 11:09 | Outpatient (BNVA) | payer MEDICARE, MEDICAID, SELFPAY | PROVIDERS: PCP Physician Assistant; Visit Provider Podiatrist Foot & Ankle Surgery | DX: B35.1 Tinea unguium (principal); M79.671 Pain in right foot; M79.672 Pain in left foot; R60.9 Edema, unspecified; I87.2 Venous insufficiency (chronic) (peripheral); F81.9 Developmental disorder of scholastic skills, unspecified; I73.9 Peripheral vascular disease, unspecified; R03.0 Elevated blood-pressure reading, without diagnosis of hypertension | CPT/HCPCS: 11721 ==

== ENCOUNTER 2024-06-07 17:42 | Emergency (ER) | payer MEDICARE, MEDICAID, SELFPAY ==
[2024-06-07 17:54] VITALS: BP 144/95; PULSE 70; RESP 18; TEMP 36.7; O2SAT 92
--- NOTE | 2024-06-07 18:47 | ED_ITS ---
HPI - Wound/Laceration General: Chief Complaint: Wound/Laceration Stated Complaint: left eyebrow laceration Time Seen by Provider: 06/07/24 18:32 Source: other (caregiver) Mode of arrival: ambulatory Limitations: physical limitation History of Present Illness: Patient is a 64-year-old male brought in by caregiver from [facility] for superficial laceration above left eyebrow. Patient reportedly bumped it on car door while attempting to get in the vehicle, and caregiver states they brought him here based on protocol. No active bleeding and no gaping of the wound. No foreign body or contamination. Patient does have severe cognitive development delay cannot provide any history or review of systems. Onset (ago): hour(s) Location: face Context: accidental Related Data Home Medications Medication Instructions Recorded Confirmed atorvastatin 40 mg tablet 40 mg PO DAILY@20 01/13/20 05/04/24 famotidine 20 mg tablet 20 mg PO DAILY@08 01/13/20 05/04/24 loratadine 10 mg tablet (Claritin) 10 mg PO DAILY@01/13/20 05/04/24 olanzapine 20 mg tablet (Zyprexa) 20 mg PO BEDTIME 01/13/20 05/04/24 sertraline 100 mg tablet 200 mg PO DAILY@08 01/13/20 05/04/24 umeclidinium 62.5 mcg-vilanterol 1 inh inhalation DAILY@11/26/20 05/04/24 25 mcg/actuation powdr for inhalation (Anoro Ellipta) albuterol sulfate 90 mcg/actuation 2 puff inhalation BID PRN 02/17/24 05/04/24 aerosol inhaler (Ventolin HFA) Shortness Of Breath fluticasone furoate 100 1 inh inhalation DAILY 02/17/24 05/04/24 mcg/actuation blister powder for inhalation (Arnuity Ellipta) olanzapine 10 mg tablet See Rx Instructions .Route .COMPLEX 02/17/24 05/04/24 Previous Rx's Medication Instructions Recorded aspirin 81 mg tablet,delayed 81 mg PO DAILY #30 tabs 02/18/24 release cefdinir 300 mg capsule 300 mg PO BID #14 caps 02/18/24 Allergies Allergy/AdvReac Type Severity Reaction Status Date / Time No Known Allergies Allergy Verified 05/12/24 11:03 Review of Systems General: Reports: ROS unobtainable due to medical condition PFSH ED PFSH: Medical History Hyperlipidemia Nicotine dependence COPD (chronic obstructive pulmonary disease) GERD (gastroesophageal reflux disease) Cognitive developmental delay Social History Smoking and tobacco/nicotine status: former use of tobacco/nicotine Physical Exam Const: COMMON NORMALS: no acute distress, average body habitus, no limitations and alert EXAM LIMITATIONS: other limitations (Cognitive delay) GENERAL APPEARANCE: cooperative ORIENTATION/CONSCIOUSNESS: Yes awake HENMT: OTHER: Small, very superficial 2 cm laceration over patient's left eyebrow with no foreign body, contamination, or gaping/active bleeding Eye: COMMON NORMALS: Equal, round and reactive pupils present, EOMs intact bilaterally and conjunctivae normal PERIORBITAL: periorbital findings normal EYELID: eyelids normal CONJUNCTIVA: Yes conjunctivae normal PUPIL: Yes Equal, round and reactive pupils present Neck/C-Spine: COMMON NORMALS: full ROM and no meningeal signs Resp: COMMON NORMALS: normal respiratory effort, No retractions and No use of accessory muscles Extremity: COMMON NORMALS: normal to inspection and full ROM Neuro: COMMON NORMALS: moves all extremities, no focal motor deficits and no sensory deficits noted SENSORIUM/ORIENTATION: Yes alert MENINGEAL SIGNS: Yes no meningeal signs Skin: NARRATIVE SKIN EXAM: See face exam Course Vital Signs: Vital signs: Vital Signs Temperature 98.1 F 06/07/24 17:54 Pulse Rate 70 06/07/24 17:54 Respiratory Rate 18 06/07/24 17:54 Blood Pressure 144/95 06/07/24 17:54 Pulse Oximetry 92 06/07/24 17:54 Oxygen Delivery Me thod Room Air 06/07/24 17:54 MDM - Wound/Laceration Medical Decision Making Patient here from [facility] essentially for medical clearance. Laceration above patient's left eyebrow cannot be further approximated and is entirely too superficial for suture closure. Caregiver and patient elected for Steri-Strips, also informed to apply Neosporin as this does appear basically as a cut of the left eye. Vitals were stable, reasons to return discussed. No radiology studies performed this visit Discharge Plan Discharge Patient Disposition: Home Clinical Impression: Superficial laceration of face Condition: Stable Prescriptions: No Action atorvastatin 40 mg Tablet 40 mg PO DAILY@20 famotidine 20 mg Tablet 20 mg PO DAILY@08 sertraline 100 mg Tablet 200 mg PO DAILY@08 olanzapine [Zyprexa] 20 mg Tablet 20 mg PO BEDTIME loratadine [Claritin] 10 mg Tablet 10 mg PO DAILY@08 Anoro Ellipta 62.5-25 mcg/actuation Blister With Device 1 inh INHALATION DAILY@20 olanzapine 10 mg tablet See Rx Instructions .ROUTE .COMPLEX Rx Instructions: TAKE 1 TABLET BY MOUTH AT 8AM AND 2PM. Ventolin HFA 90 mcg/actuation HFA aerosol inhaler 2 puff INHALATION BID PRN (Reason: Shortness Of Breath) Arnuity Ellipta 100 mcg/actuation blister with device 1 inh INHALATION DAILY aspirin 81 mg Tablet,Delayed Release (Dr/Ec) 81 mg PO DAILY Qty: 30 0RF cefdinir 300 mg capsule 300 mg PO BID Qty: 14 0RF Discharge Orders: Discharge ED (Routine); Ordered 06/07/24 Ordered By: Peña Mccord Referrals: Liv Kumar PA [Primary Care Provider] - Patient Instructions: Facial Laceration (ED) Activity Restrictions/Additional Instructions: Steri-Strips, apply topical Neosporin. Monitor for any signs of drainage, worsening pain or swelling, or other signs of infection. Follow-up with primary care routinely. 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
[2024-06-07 18:56] VITALS: BP 140/77; PULSE 90; O2SAT 96
== END 2024-06-07 18:58 | disposition home or self-care (01) ==
PROVIDERS: Emergency Provider Physician Assistant; PCP Physician Assistant
DX: S01.81XA Laceration without foreign body of other part of head, initial encounter (principal); Z79.82 Long term (current) use of aspirin; Z87.891 Personal history of nicotine dependence; X58.XXXA Exposure to other specified factors, initial encounter; J44.9 Chronic obstructive pulmonary disease, unspecified; E78.5 Hyperlipidemia, unspecified
CPT/HCPCS: 99282

== ENCOUNTER → 2024-07-06 14:02 | Outpatient (BNVA) | payer MEDICARE, MEDICAID, SELFPAY | PROVIDERS: PCP Physician Assistant; Visit Provider Podiatrist Foot & Ankle Surgery | DX: B35.1 Tinea unguium (principal); R60.9 Edema, unspecified; I87.2 Venous insufficiency (chronic) (peripheral); F81.9 Developmental disorder of scholastic skills, unspecified; I73.9 Peripheral vascular disease, unspecified; R03.0 Elevated blood-pressure reading, without diagnosis of hypertension | CPT/HCPCS: 11721 ==

== ENCOUNTER → 2024-09-14 14:24 | Outpatient (BNVA) | payer MEDICARE, MEDICAID, SELFPAY | PROVIDERS: PCP Physician Assistant; Visit Provider Podiatrist Foot & Ankle Surgery | DX: I73.9 Peripheral vascular disease, unspecified (principal); B35.1 Tinea unguium; R60.9 Edema, unspecified; I87.2 Venous insufficiency (chronic) (peripheral); F81.9 Developmental disorder of scholastic skills, unspecified; R03.0 Elevated blood-pressure reading, without diagnosis of hypertension | CPT/HCPCS: 11721 ==

== ENCOUNTER → 2024-11-16 12:56 | Outpatient (BNVA) | payer MEDICARE, MEDICAID, SELFPAY | PROVIDERS: PCP Physician Assistant; Visit Provider Podiatrist Foot & Ankle Surgery | DX: I73.9 Peripheral vascular disease, unspecified (principal); B35.1 Tinea unguium; M79.671 Pain in right foot; M79.672 Pain in left foot; R60.9 Edema, unspecified; I87.2 Venous insufficiency (chronic) (peripheral); F81.9 Developmental disorder of scholastic skills, unspecified; R03.0 Elevated blood-pressure reading, without diagnosis of hypertension | CPT/HCPCS: 11721 ==

== ENCOUNTER 2024-11-19 13:28 | Emergency (ER) | payer MEDICARE, MEDICAID, SELFPAY ==
[2024-11-19 13:31] VITALS: BP 140/78; PULSE 81; RESP 21; TEMP 36.7; O2SAT 91; BMI 37.5
--- NOTE | 2024-11-19 13:31 | ECG_ITS ---
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 Measurements Intervals [place] Rate: 81 P: 52 [place]: 172 QRS: 0 QRSD: 108 T: 21 QT: 392 QTc: 456 Interpretive Statements SINUS RHYTHM LOW QRS VOLTAGE IN PRECORDIAL LEADS [QRS DEFLECTION < 1.0 mV IN CHEST LEADS] POSSIBLE RIGHT VENTRICULAR CONDUCTION DELAY [RSR (QR) IN V1/V2] Compared to ECG 02/17/2024 07:46:35 Sinus tachycardia no longer present Right bundle-branch block no longer present Electronically Signed On 11-22-2024 09:25:36 CDT by Jose Luis Leach M.D. [id number]
--- NOTE | 2024-11-19 13:31 | XR_ITS ---
WS: [id number] Portable AP upright chest, 11/19/2024 Clinical Data: dyspnea/cough Comparison: Portable chest, 02/17/2024 Findings: No nodules, masses or effusions are seen. The heart is enlarged. The pulmonary vascularity is not increased. No pneumonia or pneumothorax is seen. There is a poor inspiratory effort which accentuates the heart size. The aortic arch and descending thoracic aorta show calcification and tortuosity. XR/XR chest 1V portable [id number] Impression: Cardiomegaly and atherosclerosis.
--- NOTE | 2024-11-19 13:55 | ED_ITS ---
HPI - Weakness 2 General: Chief complaint: Weakness Stated complaint: weakness - pain Time Seen by Provider: 11/19/24 13:29 History of Present Illness: 64-year-old male presents emergency room via EMS complaining of weakness shortness of breath and lethargy. EMS reports that he became nonresponsive and route. While trying to take history he continually dozes off even during the middle of exam. Associated symptoms: Denies chest pain, chills, dysuria or fever(s) Review of Systems 2 Const: Denies: fever(s) or chills Card: Denies: chest pain Resp: Denies: dyspnea GI: Denies: abdominal pain : Denies: dysuria, urinary frequency or urinary urgency Musc: Denies: neck pain or back pain Skin/Breast: Denies: rash PFSH ED 2 PFSH: Medical History Hyperlipidemia Nicotine dependence COPD (chronic obstructive pulmonary disease) GERD (gastroesophageal reflux disease) Cognitive developmental delay Social History Smoking and tobacco/nicotine status: former use of tobacco/nicotine Physical Exam 2 HENMT: COMMON NORMALS: normocephalic, atraumatic and hearing grossly normal bilaterally HEAD & SCALP: normocephalic and atraumatic Resp: AUSCULTATION: wheezes Cardio: COMMON NORMALS: regular rate, regular rhythm and No murmurs present (Cardio) RATE: regular rate RHYTHM: regular rhythm GI: COMMON NORMALS: Soft to palpation and No hepatosplenomegaly present A USCULTATION: Yes normoactive bowel sounds PALPATION: Yes Soft to palpation, No Tenderness to palpation present (GI), No Guarding due to palpation present (GI) and Yes No hepatosplenomegaly present Extremity: COMMON NORMALS: normal to inspection, capillary refill normal, no clubbing, cyanosis or edema, no calf tenderness and no pedal edema Skin: COMMON NORMALS: no rashes or lesions noted GENERAL SKIN EXAM: no rashes or lesions noted Course 2 Vital Signs: Vital signs: Vital Signs Temperature 98.1 F 11/19/24 13:31 Pulse Rate 70 11/19/24 18:03 Respiratory Rate 18 11/19/24 14:06 Blood Pressure 147/96 11/19/24 18:03 Pulse Oximetry 93 11/19/24 18:03 Oxygen Delivery Me thod Nasal Cannula 11/19/24 14:06 Oxygen Flow Rate 2 11/19/24 14:06 MDM - Weakness Medical Decision Making Caregivers are with the patient now they feel like he is back at his baseline he has had episodes like this before in the past. He did not have any focused neurologic deficits at home believe he had a TIA or stroke CT of his head was negative remainder of his labs were unremarkable they feel he is back at his baseline. They have seen him have similar episodes like this in the past they are concerned there may be some worsening of his cognitive status or even some signs of early worsening cognition possibly early dementia. At this point no evidence of emergent condition we will discharge patient home and have him follow-up with his primary care doctor as needed Medical Records I reviewed the patient's medical records. Lab Data I reviewed the patient's lab results. 11/19/24 13:51 11/19/24 13:51 Radiology Impressions Chest X-Ray 11/19/24 13:31 Impression: Cardiomegaly and atherosclerosis. Head CT 11/19/24 14:47 Impression: Negative for acute intracranial findings. Laboratory Results WBC 8.70 10^3/uL (3.29-11.43) 11/19/24 13:51 RBC 4.15 10^6/uL (3.85-5.65) 11/19/24 13:51 Hgb 11.60 g/dL (11.27-16.99) 11/19/24 13:51 Hct 37.2 % (37-53) 11/19/24 13:51 MCV 89.6 fl (82-101) 11/19/24 13:51 MCH 28.0 pg (27-33) 11/19/24 13:51 MCHC 31.2 g/dL (30-55) 11/19/24 13:51 RDW 13.6 % (12.1-15.1) 11/19/24 13:51 Plt Count 208 10^3/cmm (157-399) 11/19/24 13:51 MPV 9.7 fL (7.4-10.4) 11/19/24 13:51 Neut % (Auto) 66.9 % 11/19/24 13:51 Lymph % (Auto) 22.2 % 11/19/24 13:51 [place] % (Auto) 9.1 % 11/19/24 13:51 Eos % (Auto) 1.0 % 11/19/24 13:51 Baso % (Auto) 0.6 % 11/19/24 13:51 Neut # (Auto) 5.82 10^3/uL (1.8-7.7) 11/19/24 13:51 Lymph # (Auto) 1.9 10^3/uL (0.8-4.8) 11/19/24 13:51 [place] # (Auto) 0.8 10^3/uL (0.2-0.9) 11/19/24 13:51 Eos # (Auto) 0.1 10^3/uL (0.0-0.8) 11/19/24 13:51 Baso # (Auto) 0.1 10^3/uL (0.0-0.1) 11/19/24 13:51 Nucleated RBC % (auto) 0 % 11/19/24 13:51 Nucleated RBCs # 0.0 /100WBC 11/19/24 13:51 Specimen Type Arterial 11/19/24 13:47 Sample Site Brachial, left 11/19/24 13:47 ABG pH 7.39 (7.35-7.45) 11/19/24 13:47 ABG pCO2 44.3 mmHg (35-45) 11/19/24 13:47 ABG pO2 79.8 mmHg (80.0-100.0) L 11/19/24 13:47 ABG PO2/FiO2 Ratio 285 11/19/24 13:47 ABG HCO3 26.9 mmol/L (22-26) H 11/19/24 13:47 ABG O2 Saturation 96.3 11/19/24 13:47 ABG Base Excess 1.6 mmol/L (-2.0-2.0) 11/19/24 13:47 Albino Test N/a 11/19/24 13:47 A-a O2 Gradient 8.3 mmHg (5-10) 11/19/24 13:47 Hematocrit 37.0 % (42-52) L 11/19/24 13:47 Hgb O2 Saturation 94.9 % (95-100) L 11/19/24 13:47 Carboxyhemoglobin 1.1 %THgb (0.4-20.1) 11/19/24 13:47 Methemoglobin 0.3 % (0.4-1.5) L 11/19/24 13:47 Total Hemoglobin 12.1 g/dL (14-18) L 11/19/24 13:47 Sodium 143.0 mmol/L (131-143) 11/19/24 13:47 Potassium 3.7 mmol/L (3.5-5.0) 11/19/24 13:47 Glucose 115.0 mg/dL (70-115) 11/19/24 13:47 Ionized Calcium 1.1 mmol/L (1.1-1.4) 11/19/24 13:47 O2 Delivery Device Nc 11/19/24 13:47 O2 Liters/Min 2.0 % 11/19/24 13:47 FiO2 28.0 % 11/19/24 13:47 Proof Load Mechanic ID glc 11/19/24 13:47 Sodium 140 mmol/L (136-145) 11/19/24 13:51 Potassium 3.8 mmol/L (3.5-5.1) 11/19/24 13:51 Chloride 104 mmol/L (98-107) 11/19/24 13:51 Carbon Dioxide 24 mmol/L (22-29) 11/19/24 13:51 Anion Gap 15.8 (5-19) 11/19/24 13:51 BUN 10 mg/dL (8-23) 11/19/24 13:51 Creatinine 0.7 mg/dL (0.7-1.2) 11/19/24 13:51 GFR Calculation 112.8 mL/min (90-130) 11/19/24 13:51 Glucose 118 mg/dL (65-115) H 11/19/24 13:51 Calculated Osmolality 290 mOsm/kg (285-295) 11/19/24 13:51 Calcium 8.5 mg/dL (8.5-10.5) 11/19/24 13:51 Total Bilirubin 0.3 mg/dL (0.15-1.2) 11/19/24 13:51 AST 25 U/L (0-40) 11/19/24 13:51 ALT 29 U/L (0-41) 11/19/24 13:51 Alkaline Phosphatase 109 U/L (40-130) 11/19/24 13:51 Creatine Kinase 73 U/L (39-308) 11/19/24 13:51 Troponin T Baseline 7 ng/L (0-15) 11/19/24 13:51 Troponin T 120 Minute 6.61 ng/L (0-15) 11/19/24 16:04 Delta Troponin T -0.39 ABS# (0-10) L 11/19/24 16:04 Total Protein 7.3 g/dL (6.6-8.7) 11/19/24 13:51 Albumin 4.2 g/dL (3.5-5.2) 11/19/24 13:51 Globulin 3.1 g/dL (1.3-4.6) 11/19/24 13:51 Urine Color Yellow (Yellow) 11/19/24 16:51 Urine Appearance Clear (CLEAR) 11/19/24 16:51 Urine pH 7.0 (5-7) 11/19/24 16:51 Ur Specific [place] 1.008 (1.005-1.030) 11/19/24 16:51 Urine Protein Negative (Negative) 11/19/24 16:51 Urine Glucose (UA) Negative (Normal) 11/19/24 16:51 Urine Ketones Negative (Negative) 11/19/24 16:51 Urine Blood Negative (Negative) 11/19/24 16:51 Urine Nitrate Negative (Negative) 11/19/24 16:51 Urine Bilirubin Negative (Negative) 11/19/24 16:51 Urine Urobilinogen 1.0 mg/dL (Negative) 11/19/24 16:51 Ur Leukocyte Esterase Negative (Negative) 11/19/24 16:51 Urine RBC 0-2 /hpf (0-2) 11/19/24 16:51 Urine WBC 0-5 /hpf (0-5) 11/19/24 16:51 Ur Squamous Epith Cells 0-5 /hpf (0-5) 11/19/24 16:51 Amorphous Sediment Not Reportable 11/19/24 16:51 Urine Bacteria None seen /hpf (NONE) 11/19/24 16:51 Hyaline Casts 0.81 /lpf 11/19/24 16:51 Influenza A (PCR) Negative (Negative) 11/19/24 16:04 Influenza Type B (PCR) Negative (Negative) 11/19/24 16:04 RSV (PCR) Negative (Negative) 11/19/24 16:04 SARS-CoV-2 (PCR) Negative (Negative) 11/19/24 16:04 All radiology interpretation(s) finalized by discharge Discharge Plan Discharge Patient Disposition: Home Clinical Impression: Cognitive developmental delay Condition: Stable Prescriptions: No Action atorvastatin 40 mg Tablet 40 mg PO DAILY@20 famotidine 20 mg Tablet 20 mg PO DAILY@08 sertraline 100 mg Tablet 200 mg PO DAILY@08 olanzapine [Zyprexa] 20 mg Tablet 20 mg PO BEDTIME loratadine [Claritin] 10 mg Tablet 10 mg PO DAILY@08 Anoro Ellipta 62.5-25 mcg/actuation Blister With Device 1 inh INHALATION DAILY@20 albuterol sulfate [Ventolin HFA] 90 mcg/actuation HFA aerosol inhaler 2 puff INHALATION BID PRN (Reason: Shortness Of Breath) Arnuity Ellipta 100 mcg/actuation blister with device 1 inh INHALATION DAILY aspirin 81 mg Tablet,Delayed Release (Dr/Ec) 81 mg PO DAILY Qty: 30 0RF olanzapine 2.5 mg tablet 2.5 mg PO BID latanoprost 0.005 % drops 1 drp ophthalmic (eye) QPM ketoconazole 2 % shampoo See Rx Instructions .ROUTE .COMPLEX Rx Instructions: 1 applic topically 3 to 4 times weekly. tamsulosin 0.4 mg capsule 0.4 mg PO QPM pantoprazole 40 mg tablet,delayed release (DR/EC) 40 mg PO DAILY Discharge Orders: Discharge ED (Routine); Ordered 11/19/24 Ordered By: Zheng Tee Referrals: Liv Kumar PA [Primary Care Provider, [facility] [employer]] Discharge Diet: Usual diet Discharge Activity: Resume usual activity Patient Instructions: Opioid Safety, Pain Management Activity Restrictions/Additional Instructions: Thank you for choosing [facility] for your healthcare needs today. It is very important that you follow up as instructed or that you return to the Emergency Department should you have concerns or if your condition changes or worsens in any way. You are seen emergency room the clinic shortness of breath cardiac enzymes EKG were all normal. CT of your head is unremarkable urine and COVID swab and flu and RSV were all negative as well. Your symptoms seemingly have resolved. Since your caregivers feel you are at your baseline and we are not finding any abnormalities we will discharge home recommend you follow-up with your primary care doctor as needed Print Language: Amharic Coding Level of Care Code ED Services Program Manager for Chg Fwd Related Data Home Medications ?Medication ?Instructions ?Recorded ?Confirmed atorvastatin 40 mg tablet 40 mg PO DAILY@20 01/13/20 0 11/19/24 famotidine 20 mg tablet 20 mg PO DAILY@08 01/13/20 0 11/19/24 loratadine 10 mg tablet (Claritin) 10 mg PO DAILY@08 0 01/13/20 11/19/24 olanzapine 20 mg tablet (Zyprexa) 20 mg PO BEDTIME 11/19/24 sertraline 100 mg tablet 200 mg PO DAILY@01/13/20 11/19/24 umeclidinium 62.5 mcg-vilanterol 1 inh inhalation MAGDY Y@11/26/20 11/19/24 25 mcg/actuation powdr for inhalation (Anoro Ellipta) albuterol sulfate 90 mcg/actuation 2 puff inhalation B ID PRN 02/17/24 11/19/24 aerosol inhaler (Ventolin HFA) Shortness Of Breath fluticasone furoate 100 1 inh inhalation DAILY 02/1611/19/24 mcg/actuation blister powder for inhalation (Arnuity Ellipta) ketoconazole 2 % shampoo See Rx Instructions .Route . COMPLEX 11/19/24 11/19/24 latanoprost 0.005 % eye drops 1 drp ophthalmic (eye) Q PM 11/19/24 11/19/24 olanzapine 2.5 mg tablet 2.5 mg PO BID 11/19/2411/19 pantoprazole 40 mg tablet,delayed 40 mg PO DAILY 11/1911/19/24 release tamsulosin 0.4 mg capsule 0.4 mg PO QPM 11/19/2411/19 Previous Rx's ?Medication ?Instructions ?Recorded aspirin 81 mg tablet,delayed 81 mg PO DAILY #30 tabs 0 02/18/24 release Allergies Allergy/AdvReac Type Severity Reaction Status Date / Time No Known Allergies Allergy Verified 11/16/24 13:13
[2024-11-19 13:58] LABS: Basophils # 0.1 10^3/uL (0.0-0.1); Basophils % 0.6 %; Eosinophils # 0.1 10^3/uL (0.0-0.8); Hematocrit 37.2 % (37-53); Lymphocytes # 1.9 10^3/uL (0.8-4.8); Lymphocytes % 22.2 %; Mean Corpuscular HGB Conc 31.2 g/dL (30-55); Mean Corpuscular Volume 89.6 fl (82-101); Mean Platelet Volume 9.7 fL (7.4-10.4); Monocytes # 0.8 10^3/uL (0.2-0.9); Monocytes % 9.1 %; Neutrophils # 5.82 10^3/uL (1.8-7.7); Neutrophils % 66.9 %; Nucleated Red Blood Cells % 0 %; Platelet Count 208 10^3/cmm (157-399); Red Blood Count 4.15 10^6/uL (3.85-5.65); Red Cell Distribution Width 13.6 % (12.1-15.1)
[2024-11-19 13:59] LABS: ABG PCO2 44.3 mmHg (35-45); ABG PH Result 7.39 (7.35-7.45); Alveolar-Arterial Oxygen Gradi 8.3 mmHg (5-10); Base Excess ABG 1.6 mmol/L (-2.0-2.0); Blood Gas Operator Identificat glc; Blood Gas Sample Site Brachial, left; Blood Gas Sample Type Arterial; Carboxyhemoglobin 1.1 %THgb (0.4-20.1); HCO3 ABG 26.9 mmol/L (22-26); HGB O2 Sat 94.9 % (95-100); Ionized Calcium Level - ABG 1.1 mmol/L (1.1-1.4); Methemoglobin 0.3 % (0.4-1.5); Oxygen Device NC; Oxygen Saturation ABG 96.3; PO2 ABG 79.8 mmHg (80.0-100.0); PO2 FiO2 Ratio Arterial Blood 285; Potassium Level - ABG 3.7 mmol/L (3.5-5.0); Total Hemoglobin 12.1 g/dL (14-18)
[2024-11-19] MEDS: ipratropium-albuterol 3 mL Neb INHALATION (14:04)
[2024-11-19 14:06] VITALS: PULSE 65; RESP 18; O2SAT 95
[2024-11-19] MEDS: methylPREDNISolone sod succ 125 mg/2 mL INJ IVP (14:06)
[2024-11-19 14:12] LABS: Alanine Aminotransferase 29 U/L (0-41); Albumin Level 4.2 g/dL (3.5-5.2); Alkaline Phosphatase 109 U/L (40-130); Anion Gap 15.8 (5-19); Aspartate Amino Transferase 25 U/L (0-40); Blood Urea Nitrogen 10 mg/dL (8-23); Calcium 8.5 mg/dL (8.5-10.5); Carbon Dioxide 24 mmol/L (22-29); Chloride 104 mmol/L (98-107); Creatine Phosphokinase 73 U/L (39-308); Creatinine Clr Calc Pharmacy 106.8951; Globulin 3.1 g/dL (1.3-4.6); Glomerular Filtration Rate 112.8 mL/min (90-130); Glucose 118 mg/dL (65-115); Osmolality Calculated 290 mOsm/kg (285-295); Potassium 3.8 mmol/L (3.5-5.1); Sodium 140 mmol/L (136-145); Total Bilirubin 0.3 mg/dL (0.15-1.2); Total Protein 7.3 g/dL (6.6-8.7)
--- NOTE | 2024-11-19 14:37 | PC.PHAR ---
Pt is unsure of the eye drops. Verified Latanoprost 0.005mg 1 drop ou q pm.
[2024-11-19 14:43] VITALS: BP 132/86; PULSE 75; O2SAT 95
--- NOTE | 2024-11-19 14:47 | CT_ITS ---
WS: [id number] CT scan of the head, 11/19/2024 Clinical Data: AMS Comparison: CT head, 04/28/2024 DLP: 1143.[address] scans at [facility] use at least one of these dose optimization techniques: automated exposure control; mA and/or kV adjustment per patient size (includes targeted exams where dose is matched to clinical indication); or iterative reconstruction. Findings: The ventricular system is slightly dilated without shift. No recent infarct or hemorrhage is seen. There are no abnormal intracerebral masses. The cerebellum and brainstem are not remarkable. Bony windows of the skull and skull base show no fractures or erosions. 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 The mastoid air cells show opacification on the left, a chronic finding. The internal auditory canals, sella turcica and intraorbital contents are unremarkable. There is minimal left maxillary sinus mucoperiosteal thickening. CT/CT head wo con* [id number] Impression: Negative for acute intracranial findings.
[2024-11-19 15:15] LABS: Troponin(5th) Baseline 7 ng/L (0-15)
[2024-11-19 16:26] LABS: Troponin 5 2HR 6.61 ng/L (0-15)
[2024-11-19 16:39] LABS: Troponin 5 2HR Delta -0.39 ABS# (0-10)
[2024-11-19 16:58] LABS: Influenza A NEGATIVE (Negative); Influenza B NEGATIVE (Negative); Respiratory Syncytial Virus Ce NEGATIVE (Negative); SARS-CoV-2 PCR NEGATIVE (Negative)
--- NOTE | 2024-11-19 17:03 | ECG_ITS ---
[employer] Test Date: 2024-11-19 Pat Name: Lyle Palmer Department: Room: Gender: Male Teletype Mechanic: : [id number] Requested By: Zheng Bertrand Order Number: [id number] Sera MD: Jose Luis Leach M.D. Measurements Intervals [place] Rate: 70 P: 58 AK: 188 QRS: 18 QRSD: 105 T: 48 QT: 415 QTc: 449 Interpretive Statements SINUS RHYTHM LOW QRS VOLTAGE IN PRECORDIAL LEADS [QRS DEFLECTION < 1.0 mV IN CHEST LEADS] POSSIBLE INFERIOR MYOCARDIAL INFARCTION , OF INDETERMINATE AGE [30 ms Q WAVE IN II/aVF] Compared to ECG 11/19/2024 13:33:09 Myocardial infarct finding now present Electronically Signed On 11-22-2024 09:24:39 CDT by Jose Luis Leach M.D. [email or web address]
[2024-11-19 17:10] LABS: Bacteria Urine None Seen /hpf; Hyaline Casts Urine 0.81 /lpf; RBC Urine 0-2 /hpf (0-2); Squamous Epithelial Cell Urine 0-5 /hpf (0-5); WBC Urine 0-5 /hpf (0-5)
[2024-11-19 17:22] LABS: Add Urine Microscopic? YES; Bilirubin Urine Negative (Negative); Blood Urine Negative (Negative); Glucose Urine UA Negative (Normal); Ketones Urine Negative (Negative); Leukocyte Esterase Urine Negative (Negative); Nitrate Urine Negative (Negative); Protein Urine Negative (Negative); Specific Gravity, Urine 1.008 (1.005-1.030); Urine Color Yellow (Yellow)
[2024-11-19 17:32] LABS: Add Urine Culture? No; UA Slide Review UA Slide Review Perf; Urine Appearance Clear (CLEAR)
[2024-11-19 18:03] VITALS: BP 147/96; PULSE 70; O2SAT 93
== END 2024-11-19 18:05 | disposition home or self-care (01) ==
PROVIDERS: Emergency Provider Family Medicine; PCP Physician Assistant
DX: R62.59 Other lack of expected normal physiological development in childhood (principal); Z79.82 Long term (current) use of aspirin; Z11.52 Encounter for screening for COVID-19; Z87.891 Personal history of nicotine dependence; J44.9 Chronic obstructive pulmonary disease, unspecified; E78.5 Hyperlipidemia, unspecified
CPT/HCPCS: 36600; 70450; 71045; 80051; 80053; 81001; 82330; 82550; 82805; 84484; 85025; 87637; 93005; 94640; 96374; 99285; J2919; J9999

== ENCOUNTER 2024-11-29 08:52 | Outpatient (CLI) | payer MEDICARE, MEDICAID, SELFPAY ==
--- NOTE | 2024-11-29 09:01 | CT_ITS ---
WS: [id number] LDCT LUNG CANCER SCREENING HISTORY: HX OF TOBACCO USE TECHNIQUE: Axial imaging performed from the apices to 1 cm below the costophrenic angles. Coronal and sagittal reformats are submitted with axial MIP series. All CT scans at [facility] use at least one of these dose optimization techniques: automated exposure control; mA and/or kV adjustment per patient size (includes targeted exams where dose is matched to clinical indication); or iterative reconstruction. DLP: 80.81 mGy.cm DIvol: Mean CTDIvol: 2.40 (mGy) COMPARISON: 12/01/2023 and 02/17/2024 Diagnostic quality: Significantly compromised by breathing motion artifact throughout the entire examination. Lungs: Lung volumes are decreased due to poor inspiration and breathing motion. Mild hazy attenuation throughout both lungs. No mass identified. Small nodules would be easily obscured with this amount of motion. Heart: Mild cardiomegaly.. Other findings: Very mild atherosclerosis aorta. Normal size pulmonary artery. No pericardial or pleural effusions. Small hiatal hernia. Hepatic steatosis. No adrenal mass identified. Increase in thoracic kyphosis. Bridging osteophytes anteriorly. CT/CT lung screening [id number] IMPRESSION: LUNG-RADS: 1-Negative FOLLOW UP: 12 Month: Continue annual screening with LDCT OTHER FINDINGS (S MODIFIER): None.
== END 2024-11-29 08:53 | disposition home or self-care (01) ==
LOC: RAD 08:54
PROVIDERS: PCP Physician Assistant; Visit Provider Physician Assistant
DX: Z12.2 Encounter for screening for malignant neoplasm of respiratory organs (principal); Z87.891 Personal history of nicotine dependence; R91.8 Other nonspecific abnormal finding of lung field; I51.7 Cardiomegaly; I70.0 Atherosclerosis of aorta; K44.9 Diaphragmatic hernia without obstruction or gangrene; K76.0 Fatty (change of) liver, not elsewhere classified; M40.294 Other kyphosis, thoracic region; M25.78 Osteophyte, vertebrae
CPT/HCPCS: 71271

== ENCOUNTER → 2025-01-18 13:03 | Outpatient (BNVA) | payer MEDICARE, MEDICAID, SELFPAY | PROVIDERS: PCP Physician Assistant; Visit Provider Podiatrist Foot & Ankle Surgery | DX: E11.8 Type 2 diabetes mellitus with unspecified complications (principal); B35.1 Tinea unguium; R60.9 Edema, unspecified; I87.2 Venous insufficiency (chronic) (peripheral); F81.9 Developmental disorder of scholastic skills, unspecified; I73.9 Peripheral vascular disease, unspecified; R03.0 Elevated blood-pressure reading, without diagnosis of hypertension | CPT/HCPCS: 11721 ==

== ENCOUNTER → 2025-04-28 09:52 | Outpatient (BNVA) | payer MEDICARE, MEDICAID, SELFPAY | PROVIDERS: PCP Physician Assistant; Visit Provider Podiatrist Foot & Ankle Surgery | DX: I73.9 Peripheral vascular disease, unspecified (principal); B35.1 Tinea unguium; I87.2 Venous insufficiency (chronic) (peripheral); F81.9 Developmental disorder of scholastic skills, unspecified; R03.0 Elevated blood-pressure reading, without diagnosis of hypertension | CPT/HCPCS: 11721 ==

== ENCOUNTER → 2025-07-07 10:10 | Outpatient (BNVA) | payer MEDICARE, MEDICAID, SELFPAY | PROVIDERS: PCP Physician Assistant; Visit Provider Podiatrist Foot & Ankle Surgery | DX: E11.8 Type 2 diabetes mellitus with unspecified complications (principal); B35.1 Tinea unguium; I87.2 Venous insufficiency (chronic) (peripheral); F81.9 Developmental disorder of scholastic skills, unspecified; I73.9 Peripheral vascular disease, unspecified; R03.0 Elevated blood-pressure reading, without diagnosis of hypertension | CPT/HCPCS: 11721 ==